=== PATIENT | male | born 1975 | race Caucasian/White ===

== ENCOUNTER 2020-01-06 17:19 | Emergency (ER) | payer OTHER | END 2020-01-06 17:50 | disposition left against medical advice (07) | LOC: ED 17:19 | DX: Z53.21 Procedure and treatment not carried out due to patient leaving prior to being seen by health care provider (principal) ==

== ENCOUNTER 2020-08-29 06:28 | Emergency (ER) | payer OTHER ==
[~2020-08-29] VITALS: Ht 182.9 cm; Wt 90.7 kg
[2020-08-29] MEDS ORDERED: MECLIZINE HCL25 MG PO (07:52)
--- NOTE | 2020-08-30 07:35 | EKG ---
[facility] [address] [facility] [place], [place] [address] Signed Normal sinus rhythm Normal ECG No previous ECGs available Confirmed by CLARISSA HINES MD ([id number]) on 08/30/2020 7:35:45 AM Electronically Signed By: CLARISSA HINES MD 08/30/20 0735 PATIENT NAME: RAIVLADIMIRMissael HOWARD Electrocardiogram DATE OF : 79 PHYSICIAN: CLARISSA HINES MD REPORT #: [id number] REPORT IS CONFIDENTIAL AND NOT TO BE RELEASED WITHOUT AUTHORIZATION
== END 2020-08-29 08:31 | disposition home or self-care (01) ==
LOC: ED 06:28
DX: H81.20 Vestibular neuronitis, unspecified ear (principal); E11.9 Type 2 diabetes mellitus without complications; F17.200 Nicotine dependence, unspecified, uncomplicated
CPT/HCPCS: 71045; 80053; 82140; 83735; 85025; 85610; 93005; 93010; 96374; 99284-25; J2405

== ENCOUNTER 2021-01-02 09:39 | Emergency (ER) | payer OTHER ==
[~2021-01-02] VITALS: Ht 182.9 cm; Wt 90.7 kg
[~2021-01-02 09:39] MED LIST: MECLIZINE HCL25 MG PO
[2021-01-02] MEDS ORDERED: ESSENTIA TABLE1 EACH PO (13:06)
== END 2021-01-02 13:32 | disposition home or self-care (01) ==
LOC: ED 09:39
DX: F10.20 Alcohol dependence, uncomplicated (principal); E11.65 Type 2 diabetes mellitus with hyperglycemia; E83.42 Hypomagnesemia; F17.200 Nicotine dependence, unspecified, uncomplicated; Z20.822 Contact with and (suspected) exposure to COVID-19
CPT/HCPCS: 80053; 83690; 83735; 85025; 85610; 96374; 96375; 99284-25; C9803; J2405; J3475; U0003

== ENCOUNTER 2021-05-25 11:32 | Emergency (ER) | payer OTHER ==
[~2021-05-25] VITALS: Ht 182.9 cm; Wt 91.0 kg
[~2021-05-25 11:32] MED LIST changes: +ESSENTIA TABLE1 EACH PO
[2021-05-25] MEDS ORDERED: VITAMIN D21250 MCG PO (11:45)
[2021-05-25] MEDS ORDERED: LISINOPRIL10 MG PO (11:46)
[2021-05-25] MEDS ORDERED: ABILIFY20 MG PO (11:46)
[2021-05-25] MEDS ORDERED: BASAGLAR K100 UNIT/1 SUB-Q (11:46)
[2021-05-25] MEDS ORDERED: ZOLOFT50 MG PO (11:46)
[2021-05-25] MEDS ORDERED: HYDROCODON-ACE1 EA11 PO (15:31)
[2021-05-25] MEDS ORDERED: ONDANSETRON ODT8 MG PO (15:31)
== END 2021-05-25 15:43 | disposition home or self-care (01) ==
LOC: ED 11:32
DX: K85.90 Acute pancreatitis without necrosis or infection, unspecified (principal); E11.9 Type 2 diabetes mellitus without complications; F17.200 Nicotine dependence, unspecified, uncomplicated; Z79.4 Long term (current) use of insulin; Z79.899 Other long term (current) 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
CPT/HCPCS: 74177; 80053; 81001; 83690; 85025; 99284-25; J2270; J2405; J7030

== ENCOUNTER 2021-10-09 09:13 | Emergency (ER) | payer OTHER ==
[~2021-10-09] VITALS: Ht 182.9 cm; Wt 91.0 kg
[~2021-10-09 09:13] MED LIST changes: +ABILIFY20 MG PO; +BASAGLAR K100 UNIT/1 SUB-Q; +HYDROCODON-ACE1 EA11 PO; +LISINOPRIL10 MG PO; +ONDANSETRON ODT8 MG PO; +VITAMIN D21250 MCG PO; +ZOLOFT50 MG PO
[2021-10-09] MEDS ORDERED: TRANSDERM-SCOP1 EACH TD (16:10)
== END 2021-10-09 16:37 | disposition home or self-care (01) ==
LOC: ED 09:13
DX: M54.12 Radiculopathy, cervical region (principal); R42 Dizziness and giddiness; E11.9 Type 2 diabetes mellitus without complications; F17.200 Nicotine dependence, unspecified, uncomplicated; Z79.899 Other long term (current) 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; Z79.4 Long term (current) use of insulin
CPT/HCPCS: 72040; 99284-25

== ENCOUNTER 2021-10-11 08:46 | Emergency (ER) | payer OTHER ==
[~2021-10-11] VITALS: Ht 182.9 cm; Wt 91.0 kg
[~2021-10-11 08:46] MED LIST changes: +TRANSDERM-SCOP1 EACH TD
--- OUTSIDE RECORDS SUMMARY | 2021-10-11 08:48 | XMS ---
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 RAI Security Riding Double Events No recent Security Events currently on file CRITERIA MET - [facility] - 2 Visits in 30 Days CARE PROVIDERS RICARDO [facility] Current PHONE: Unknown Matty has no Care Guidelines for this patient. E.Katherine VISIT COUNT (12 MO.) 4 [facility] TOTAL 4 NOTE: Visits indicate total known visits. ED/UCC VISIT TRACKING (12 MO.) 10/11/2021 08:46 [facility] [place] TYPE: Emergency COMPLAINT: - DIZZINESS 10/09/2021 09:14 [facility] [place] TYPE: Emergency COMPLAINT: - EQUILIBRIUM OFF, L NECK/SHOULDER PAIN 05/25/2021 11:33 [facility] [place] TYPE: Emergency COMPLAINT: - RT SIDE ABD PAIN DIAGNOSES: - Type 2 diabetes mellitus without complications - Acute pancreatitis without necrosis or infection, unspecified - Other traveling nurse (current) 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 - Unspecified abdominal pain - Nicotine dependence, unspecified, uncomplicated - supervisor paste mixing (current) use of insulin 01/02/2021 09:[address] [facility] [place] TYPE: Emergency COMPLAINT: - MEDICAL CLEARANCE DIAGNOSES: - Nicotine dependence, unspecified, uncomplicated - Hypomagnesemia - Alcohol dependence, uncomplicated - Type 2 diabetes mellitus with hyperglycemia INPATIENT VISIT TRACKING (12 MO.) No inpatient visits to display in this time frame [id number]
[2021-10-11] MEDS ORDERED: PREDNISONE20 MG PO (12:31)
[2021-10-11] MEDS ORDERED: MECLIZINE HCL25 MG PO (12:31)
== END 2021-10-11 14:28 | disposition home or self-care (01) ==
LOC: ED 08:46
DX: R42 Dizziness and giddiness (principal); M54.12 Radiculopathy, cervical region; E11.9 Type 2 diabetes mellitus without complications; F17.200 Nicotine dependence, unspecified, uncomplicated; Z79.899 Other long term (current) 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; Z79.4 Long term (current) use of insulin
CPT/HCPCS: 99283; A9270; J8540

== ENCOUNTER 2021-11-02 12:56 | Emergency (ER) | payer OTHER ==
[~2021-11-02] VITALS: Ht 182.9 cm; Wt 93.2 kg
[~2021-11-02 12:56] MED LIST changes: +ARIPIPRAZOLE10 MG PO; -LISINOPRIL10 MG PO; +METFORMIN HCL500 MG PO; +PREDNISONE20 MG PO; +REMERON15 MG PO; +TRANSDERM-SCOP1 EACH TOP; +VENTOLIN HFA18 GM INH; +VIAGRA50 MG PO; +ZESTRIL30 MG PO
--- OUTSIDE RECORDS SUMMARY | 2021-11-02 12:58 | XMS ---
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 RAI Security Electrifier Operator Events No recent Security Events currently on file CRITERIA MET - [facility] - 2 Visits in 30 Days CARE PROVIDERS ZACKERY SORTO Nurse Practitioner: 10/14/2021-Current PHONE: [phone] DALY SILVA [facility] Current PHONE: Unknown Matty has no Care Guidelines for this patient. EDean VISIT COUNT (12 MO.) [address] [place] [address] TOTAL 6 NOTE: Visits indicate total known visits. ED/UCC VISIT TRACKING (12 MO.) 11/02/2021 12:56 [facility] [place] TYPE: Emergency COMPLAINT: - CONSTIPATION 10/28/2021 15:52 [facility] [place] TYPE: Emergency COMPLAINT: - DIZZINESS 10/11/2021 08:46 [facility] [place] TYPE: Emergency COMPLAINT: - DIZZINESS DIAGNOSES: - Nicotine dependence, unspecified, uncomplicated - continuous churn buttermaker (current) use of insulin - Radiculopathy, cervical region - Dizziness and giddiness - Other terminologist (current) 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 - Type 2 diabetes mellitus without complications 10/09/2021 09:14 [facility] [place] TYPE: Emergency COMPLAINT: - EQUILIBRIUM OFF, L NECK/SHOULDER PAIN DIAGNOSES: - Dizziness and giddiness - Other terminologist (current) 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 - Cervicalgia - Radiculopathy, cervical region - Type 2 diabetes mellitus without complications - jail (current) use of insulin - Nicotine dependence, unspecified, uncomplicated 05/25/2021 11:33 [facility] [place] TYPE: Emergency COMPLAINT: - RT SIDE ABD PAIN DIAGNOSES: - Type 2 diabetes mellitus without complications - Acute pancreatitis without necrosis or infection, unspecified - Other usp (current) 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 - Unspecified abdominal pain - Nicotine dependence, unspecified, uncomplicated - jail (current) use of insulin 01/02/2021 09:40 [facility] [place] TYPE: Emergency COMPLAINT: - MEDICAL CLEARANCE DIAGNOSES: - Nicotine dependence, unspecified, uncomplicated - Hypomagnesemia - Alcohol dependence, uncomplicated - Type 2 diabetes mellitus with hyperglycemia INPATIENT VISIT TRACKING (12 MO.) 10/28/2021 15:[address] [facility] [place] TYPE: Observation COMPLAINT: - VERTIGO, HEADACHE, NUMBNESS DIAGNOSES: - Thrombocytopenia, unspecified - continuous churn buttermaker (current) use of insulin - Headache, unspecified - Contact with and (suspected) exposure to COVID-19 - Nicotine dependence, cigarettes, uncomplicated - Major depressive disorder, single episode, unspecified - Anesthesia of skin - Dizziness and giddiness - Unspecified cirrhosis of liver - Family history of ischemic heart disease and other diseases of the circulatory system - Personal history of other (healed) physical injury and trauma - Type 2 diabetes mellitus without complications - Essential (primary) hypertension [id number]
[2021-11-02] MEDS ORDERED: CYCLOBENZAPRINE10 MG PO (13:34)
[2021-11-02] MEDS ORDERED: CONSTULOSE10 GM/15 M PO (17:05)
[2021-11-02] MEDS ORDERED: ATIVAN0.5 MG PO (17:05)
[2021-11-02] MEDS ORDERED: GOLYTELY SOLU4000 ML PO (17:05)
== END 2021-11-02 17:32 | disposition home or self-care (01) ==
LOC: ED 12:56
DX: K59.00 Constipation, unspecified (principal); E11.9 Type 2 diabetes mellitus without complications; F17.200 Nicotine dependence, unspecified, uncomplicated; Z79.899 Other long term (current) 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; Z79.4 Long term (current) use of insulin; Z79.84 Long term (current) use of oral hypoglycemic drugs
CPT/HCPCS: 36415; 74177; 80053; 81001; 83605; 83690; 85025; 96375; 99284-25; J1170; J1815; J1885; J2270; J2405; J3360; J7030

== ENCOUNTER 2022-01-11 13:58 | Emergency (ER) | payer OTHER ==
[~2022-01-11] VITALS: Ht 182.9 cm; Wt 101.0 kg
[~2022-01-11 13:58] MED LIST changes: +ATIVAN0.5 MG PO; +CONSTULOSE10 GM/15 M PO; +CYCLOBENZAPRINE10 MG PO; +GOLYTELY SOLU4000 ML PO
--- OUTSIDE RECORDS SUMMARY | 2022-01-11 14:00 | XMS ---
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 RAI Security Round Boner Events No recent Security Events currently on file CRITERIA MET - [facility] CARE PROVIDERS ZACKERY SORTO Nurse Practitioner: 10/14/2021-Current PHONE: [phone] DALY SILVA [facility] Current PHONE: Unknown Matty has no Care Guidelines for this patient. Sina VISIT COUNT (12 MO.) Colleen Valenzuela TOTAL 6 NOTE: Visits indicate total known visits. ED/UCC VISIT TRACKING (12 MO.) 01/11/2022 13:58 [facility] [place] TYPE: Emergency COMPLAINT: - RT SIDE PAIN, HALLUCINATIONS 11/02/2021 12:56 [facility] [place] TYPE: Emergency COMPLAINT: - CONSTIPATION DIAGNOSES: - half-way (current) use of insulin - Type 2 diabetes mellitus without complications - Constipation, unspecified - Nicotine dependence, unspecified, uncomplicated - Unspecified abdominal pain - Other group home (current) 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 - half-way (current) use of oral hypoglycemic drugs 10/28/2021 15:52 [facility] [place] TYPE: Emergency COMPLAINT: - DIZZINESS 10/11/2021 08:46 [facility] [place] TYPE: Emergency COMPLAINT: - DIZZINESS DIAGNOSES: - Nicotine dependence, unspecified, uncomplicated - half-way (current) use of insulin - Radiculopathy, cervical region - Dizziness and giddiness - Other image scientist (current) 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 - Type 2 diabetes mellitus without complications 10/09/2021 09:14 [facility] [place] TYPE: Emergency COMPLAINT: - EQUILIBRIUM OFF, L NECK/SHOULDER PAIN DIAGNOSES: - Dizziness and giddiness - Other group home (current) 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 - Cervicalgia - Radiculopathy, cervical region - Type 2 diabetes mellitus without complications - half-way (current) use of insulin - Nicotine dependence, unspecified, uncomplicated 05/25/2021 11:33 [facility] [place] TYPE: Emergency COMPLAINT: - RT SIDE ABD PAIN DIAGNOSES: - Type 2 diabetes mellitus without complications - Acute pancreatitis without necrosis or infection, unspecified - Other image scientist (current) 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 - Unspecified abdominal pain - Nicotine dependence, unspecified, uncomplicated - half-way (current) use of insulin INPATIENT VISIT TRACKING (12 MO.) 10/28/2021 15:[address] [facility] [place] TYPE: Observation COMPLAINT: - VERTIGO, HEADACHE, NUMBNESS DIAGNOSES: - Thrombocytopenia, unspecified - half-way (current) use of insulin - Headache, unspecified [...] mellitus without complications - Essential (primary) hypertension [id number]
== END 2022-01-11 16:33 | disposition home or self-care (01) ==
LOC: ED 13:58
DX: K76.9 Liver disease, unspecified (principal); E11.9 Type 2 diabetes mellitus without complications; F17.200 Nicotine dependence, unspecified, uncomplicated; Z79.899 Other long term (current) 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; Z79.4 Long term (current) use of insulin
CPT/HCPCS: 36415; 80053; 81001; 82140; 85025; 85610; 85730; 99284

== ENCOUNTER 2022-01-27 04:13 | Emergency (ER) | payer OTHER ==
[~2022-01-27] VITALS: Ht 182.9 cm; Wt 90.7 kg
[~2022-01-27 04:13] MED LIST changes: +BUPRENORPHINE-1 EACH SL; +INSULIN AS100 UNIT/3 SUB-Q; +INSULIN GL100 UNIT/2 SUB-Q; +NICOTINE1 EAC2 TD; +OMEPRAZOLE20 MG PO; +TAMSULOSIN HCL0.4 MG PO; +XIFAXAN550 MG PO
--- OUTSIDE RECORDS SUMMARY | 2022-01-27 04:16 | XMS ---
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 RAI Security Flower Machine Operator Events No recent Security Events currently on file CRITERIA MET - [facility] - 2 Visits in 30 Days - [facility] - 6 ED Visits in 6 Months CARE PROVIDERS ZACKERY SORTO Nurse Practitioner: 10/14/2021-Current PHONE: [phone] DALY SILVA [facility] Current PHONE: Unknown Matty has no Care Guidelines for this patient. EDean VISIT COUNT (12 MO.) [address] [place] [address] TOTAL 8 NOTE: Visits indicate total known visits. ED/UCC VISIT TRACKING (12 MO.) 01/27/2022 04:14 [facility] [place] TYPE: Emergency COMPLAINT: - VOMITING BLOOD 01/20/2022 09:23 [facility] [place] TYPE: Emergency COMPLAINT: - WEAK, VOMITING, HALLUCINATIONS, CONFUSION 01/11/2022 13:58 [facility] [place] TYPE: Emergency COMPLAINT: - RT SIDE PAIN, HALLUCINATIONS DIAGNOSES: - Type 2 diabetes mellitus without complications - Liver disease, unspecified - Altered mental status, unspecified - Other ch[facility] (current) 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 - [facility] (current) use of insulin - Nicotine dependence, unspecified, uncomplicated 11/02/2021 12:56 [facility] [place] TYPE: Emergency COMPLAINT: - CONSTIPATION DIAGNOSES: - ferry terminal agent (current) use of insulin - Type 2 diabetes mellitus without complications - Constipation, unspecified - Nicotine dependence, unspecified, uncomplicated - Unspecified abdominal pain - Other chcf (current) 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 - ferry terminal agent (current) use of oral hypoglycemic drugs 10/28/2021 15:52 [facility] [place] TYPE: Emergency COMPLAINT: - DIZZINESS 10/11/2021 08:46 [facility] [place] TYPE: Emergency COMPLAINT: - DIZZINESS DIAGNOSES: - Nicotine dependence, unspecified, uncomplicated - [facility] (current) use of insulin - Radiculopathy, cervical region - Dizziness and giddiness - Other terminal operator (current) 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 - Type 2 diabetes mellitus without complications 10/09/2021 09:14 [facility] [place] TYPE: Emergency COMPLAINT: - EQUILIBRIUM OFF, L NECK/SHOULDER PAIN DIAGNOSES: - Dizziness and giddiness - Other terminal operator (current) 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 - Cervicalgia - Radiculopathy, cervical region - Type 2 diabetes mellitus without complications - ferry terminal agent (current) use of insulin - Nicotine dependence, unspecified, uncomplicated 05/25/2021 11:33 [facility] [place] TYPE: Emergency COMPLAINT: - RT SIDE ABD PAIN DIAGNOSES: - Type 2 diabetes mellitus without complications - Acute pancreatitis without necrosis or infection, unspecified - Other chcf (current) 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 - Unspecified abdominal pain - Nicotine dependence, unspecified, uncomplicated - ferry terminal agent (current) use of insulin INPATIENT VISIT TRACKING (12 MO.) 01/20/2022 09:24 [facility] [place] TYPE: Observation COMPLAINT: - HEPATIC ENCEPHALOPATHY DIAGNOSES: - Nicotine dependence, cigarettes, uncomplicated - Alcoholic hepatic failure without coma - Type 2 diabetes mellitus without complications - Contact with and (suspected) exposure to COVID-19 - [facility] (current) use of insulin - Essential (primary) hypertension - Other pancytopenia - Unspecified mood [affective] disorder - Hepatic failure, unspecified without coma 10/28/2021 15:53 [facility] [place] TYPE: Observation COMPLAINT: - VERTIGO, HEADACHE, NUMBNESS DIAGNOSES: - Thrombocytopenia, unspecified - [facility] (current) use of insulin - Headache, unspecified [...] mellitus without complications - Essential (primary) hypertension [id number]
[2022-01-27] MEDS ORDERED: ONDANSETRON ODT8 MG PO (06:13)
== END 2022-01-27 06:37 | disposition home or self-care (01) ==
LOC: ED 04:13
DX: K29.01 Acute gastritis with bleeding (principal); K70.30 Alcoholic cirrhosis of liver without ascites; I85.00 Esophageal varices without bleeding; E11.9 Type 2 diabetes mellitus without complications; Z79.899 Other long term (current) 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; Z20.822 Contact with and (suspected) exposure to COVID-19
CPT/HCPCS: 36415; 71045; 80053; 81001; 82140; 83690; 84484; 85025; 85060; 85610; 85730; 87502; 96374; 96375; 99284-25; A9270; C9113; C9803; J2405; U0003

== ENCOUNTER 2022-03-16 06:40 | Emergency (ER) | payer OTHER ==
[~2022-03-16] VITALS: Ht 182.9 cm; Wt 94.0 kg
--- OUTSIDE RECORDS SUMMARY | 2022-03-16 06:42 | XMS ---
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 RAI Security Office Assistant Receptionist Events No recent Security Events currently on file CRITERIA MET - [facility] ZACKERY SORTO Nurse Practitioner: 10/14/2021-Current PHONE: [phone] DALY SILVA [facility] Current PHONE: Unknown Matty has no Care Guidelines for this patient. Sina VISIT COUNT (12 MO.) 9 [facility] TOTAL 9 NOTE: Visits indicate total known visits. ED/UCC VISIT TRACKING (12 MO.) 03/16/2022 06:40 [facility] [place] TYPE: Emergency COMPLAINT: - VOMITING 01/27/2022 04:14 [facility] [place] TYPE: Emergency COMPLAINT: - VOMITING BLOOD DIAGNOSES: - Esophageal varices without bleeding - Type 2 diabetes mellitus without complications - Secondary esophageal varices without bleeding - Alcoholic cirrhosis of liver without ascites - Contact with and (suspected) exposure to COVID-19 - Nicotine dependence, unspecified, uncomplicated - Hematemesis - jail (current) use of insulin - Other fci (current) 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 - Acute gastritis with bleeding 01/20/2022 09:23 [facility] [place] TYPE: Emergency COMPLAINT: - WEAK, VOMITING, HALLUCINATIONS, CONFUSION 01/11/2022 13:58 [facility] [place] TYPE: Emergency COMPLAINT: - RT SIDE PAIN, HALLUCINATIONS DIAGNOSES: - terminal clerk (current) use of insulin - Altered mental status, unspecified - Type 2 diabetes mellitus without complications - Nicotine dependence, unspecified, uncomplicated - Other terminal clerk (current) 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 - Liver disease, unspecified 11/02/2021 12:56 [facility] [place] TYPE: Emergency COMPLAINT: - CONSTIPATION DIAGNOSES: - terminal clerk (current) use of oral hypoglycemic drugs - Unspecified abdominal pain - Constipation, unspecified - terminal clerk (current) use of insulin - Other fci (current) 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 - Nicotine dependence, unspecified, uncomplicated - Type 2 diabetes mellitus without complications 10/28/2021 15:52 [facility] [place] TYPE: Emergency COMPLAINT: - DIZZINESS 10/11/2021 08:46 [facility] [place] TYPE: Emergency COMPLAINT: - DIZZINESS DIAGNOSES: - Other terminal clerk (current) 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 - Radiculopathy, cervical region - Nicotine dependence, unspecified, uncomplicated - Type 2 diabetes mellitus without complications - Dizziness and giddiness - jail (current) use of insulin 10/09/2021 09:14 [facility]car [place] [place] TYPE: Emergency COMPLAINT: - EQUILIBRIUM OFF, L NECK/SHOULDER PAIN DIAGNOSES: - Nicotine dependence, unspecified, uncomplicated - Type 2 diabetes mellitus without complications - Cervicalgia - Dizziness and giddiness - jail (current) use of insulin - Radiculopathy, cervical region - Other fci (current) 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 05/25/2021 11:33 [facility] [place] TYPE: Emergency COMPLAINT: - RT SIDE ABD PAIN DIAGNOSES: - Nicotine dependence, unspecified, uncomplicated - Other fci (current) 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 - Type 2 diabetes mellitus without complications - jail (current) use of insulin - Unspecified abdominal pain - Acute pancreatitis without necrosis or infection, unspecified INPATIENT VISIT TRACKING (12 MO.) 01/20/2022 09:24 [facility] [place] TYPE: Observation COMPLAINT: - HEPATIC ENCEPHALOPATHY DIAGNOSES: - Hepatic failure, unspecified without coma - Other pancytopenia - jail (current) use of insulin - Type 2 diabetes mellitus without complications - Nicotine dependence, cigarettes, uncomplicated - Unspecified mood [affective] disorder - Essential (primary) hypertension - Contact with and (suspected) exposure to COVID-19 - Alcoholic hepatic failure without coma 10/28/2021 15:53 [facility] [place] TYPE: Observation COMPLAINT: - VERTIGO, HEADACHE, NUMBNESS DIAGNOSES: - Unspecified cirrhosis of liver - Anesthesia of skin - Nicotine dependence, cigarettes, uncomplicated - Type 2 diabetes mellitus without complications - Headache, unspecified - Family history of ischemic heart disease and other diseases of the circulatory system - Thrombocytopenia, unspecified - Dizziness and giddiness - Major depressive disorder, single episode, unspecified - Essential (primary) hypertension - Contact with and (suspected) exposure to COVID-19 - Personal history of other (healed) physical injury and trauma - jail (current) use of insulin [id number]
== END 2022-03-16 12:25 | disposition home or self-care (01) ==
LOC: ED 06:40
DX: K29.70 Gastritis, unspecified, without bleeding (principal); U07.1 COVID-19; E11.9 Type 2 diabetes mellitus without complications; F17.200 Nicotine dependence, unspecified, uncomplicated; Z79.899 Other long term (current) 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; Z79.4 Long term (current) use of insulin
CPT/HCPCS: 36415; 74177; 80053; 81001; 82140; 83690; 85025; 85060; 85610; 87502; 96361; 96375; 96376; 99284-25; C9803; J1170; J2060; J2405; J7030; Q9967; U0003

== ENCOUNTER 2022-08-14 13:21 | Emergency (ER) | payer OTHER ==
[~2022-08-14] VITALS: Ht 182.9 cm; Wt 94.0 kg
--- OUTSIDE RECORDS SUMMARY | 2022-08-14 13:24 | XMS ---
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 RAI Security Cryptologic Technician Technical Events No recent Security Events currently on file CRITERIA MET - [facility] CARE PROVIDERS ZACKERY SORTO Nurse Practitioner: Family 10/14/2021-Current PHONE: [phone] DALY SILVA [facility] Current PHONE: Unknown Tamica Westbrook Sample Driller/Customer Development Representative 06/26/2022-Current PHONE: [phone] Matty has no Care Guidelines for this patient. E.D. VISIT COUNT (12 MO.) 9 [facility] Valenzuela TOTAL 9 NOTE: Visits indicate total known visits. ED/UCC VISIT TRACKING (12 MO.) 08/14/2022 13:21 [facility] [place] TYPE: Emergency COMPLAINT: - VOMITING, ABD PAIN 03/16/2022 06:40 [facility] [place] TYPE: Emergency COMPLAINT: - VOMITING DIAGNOSES: - Right upper quadrant pain - COVID-19 - Type 2 diabetes mellitus without complications - intermediate card tender (current) use of insulin - Nicotine dependence, unspecified, uncomplicated - Gastritis, unspecified, without bleeding - Other mcfp (current) 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 01/27/2022 04:14 [facility] [place] TYPE: Emergency COMPLAINT: - VOMITING BLOOD DIAGNOSES: - Esophageal varices without bleeding - Type 2 diabetes mellitus without complications - Secondary esophageal varices without bleeding - Alcoholic cirrhosis of liver without ascites - Contact with and (suspected) exposure to COVID-19 - Nicotine dependence, unspecified, uncomplicated - Hematemesis - penitentiary (current) use of insulin - Other intermediate accountant (current) 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 - Acute gastritis with bleeding 01/20/2022 09:23 [facility] [place] TYPE: Emergency COMPLAINT: - WEAK, VOMITING, HALLUCINATIONS, CONFUSION 01/11/2022 13:58 [facility] [place] TYPE: Emergency COMPLAINT: - RT SIDE PAIN, HALLUCINATIONS DIAGNOSES: - intermediate card tender (current) use of insulin - Altered mental status, unspecified - Type 2 diabetes mellitus without complications - Nicotine dependence, unspecified, uncomplicated - Other mcfp (current) 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 - Liver disease, unspecified 11/02/2021 12:56 [facility] [place] TYPE: Emergency COMPLAINT: - CONSTIPATION DIAGNOSES: - penitentiary (current) use of oral hypoglycemic drugs - Unspecified abdominal pain - Constipation, unspecified - penitentiary (current) use of insulin - Other intermediate accountant (current) 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 - Nicotine dependence, unspecified, uncomplicated - Type 2 diabetes mellitus without complications 10/28/2021 15:52 [facility] [place] TYPE: Emergency COMPLAINT: - DIZZINESS 10/11/2021 08:46 [facility] [place] TYPE: Emergency COMPLAINT: - DIZZINESS DIAGNOSES: - Other intermediate accountant (current) 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 - Radiculopathy, cervical region - Nicotine dependence, unspecified, uncomplicated - Type 2 diabetes mellitus without complications - Dizziness and giddiness - intermediate card tender (current) use of insulin 10/09/2021 09:14 [facility] [place] TYPE: Emergency COMPLAINT: - EQUILIBRIUM OFF, L NECK/SHOULDER PAIN DIAGNOSES: - Nicotine dependence, unspecified, uncomplicated - Type 2 diabetes mellitus without complications - Cervicalgia - Dizziness and giddiness - penitentiary (current) use of insulin - Radiculopathy, cervical region - Other intermediate accountant (current) 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 INPATIENT VISIT TRACKING (12 MO.) 01/20/2022 09:24 [facility] [place] TYPE: Observation COMPLAINT: - HEPATIC ENCEPHALOPATHY DIAGNOSES: - Hepatic failure, unspecified without coma - Other pancytopenia - intermediate card tender (current) use of insulin - Type 2 [...] other (healed) physical injury and trauma - penitentiary (current) use of insulin [id number]
[2022-08-14] MEDS ORDERED: PROMETHAZINE HC25 M1 PO (17:27)
== END 2022-08-14 17:39 | disposition home or self-care (01) ==
LOC: ED 13:21
DX: E11.43 Type 2 diabetes mellitus with diabetic autonomic (poly)neuropathy (principal); K31.84 Gastroparesis; K74.60 Unspecified cirrhosis of liver; F17.200 Nicotine dependence, unspecified, uncomplicated; Z79.899 Other long term (current) 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; Z79.4 Long term (current) use of insulin
CPT/HCPCS: 36415; 80053; 81003; 82140; 83690; 83735; 85025; 85060; 85610; 96361; 96374; 96375; 99284-25; J1170; J1200; J1790; J2405; J2550; J7030

== ENCOUNTER 2023-01-22 09:04 | Emergency (ER) | payer OTHER ==
[~2023-01-22] VITALS: Ht 182.9 cm; Wt 90.8 kg
--- OUTSIDE RECORDS SUMMARY | ~2023-01-22 | XMS | Continuity of Care Document ---
Demographics + + + | Address | [address] | | | [place] [address] | + + + | Preferred Language | Unknown | + + + | Marital Status | | + + + | Gnosticism Affiliation | Unknown | + + + | Race | White | + + + | Ethnic Group | Not or | + + + Author + + + | Author | [facility] | + + + | Organization | [facility] | + + + | Address | [address] | | | [place] [address] | + + + | Phone | | + + + Care Team Providers + + + + | Care Pyridine Operator Name | Role | Phone | + [...] Status No information. Immunizations No information. Medications + + + + | date | description | facility | + + + + | 2022-01-23 00:00 | Buprenorphine HCl/Naloxone | [facility] | | | HCl | | + + + + | 2022-01-27 00:00 | Buprenorphine HCl/Naloxone | [facility] | | | HCl | | + + + + | 2022-03-16 00:00 | Buprenorphine HCl/Naloxone | [facility] | | | HCl | | + + + + | 2022-08-14 00:00 | Buprenorphine HCl/Naloxone | [facility] | | | HCl | | + + + + | 2022-12-16 00:00 | Buprenorphine HCl/Naloxone | [facility] | | | HCl | | + + + + | 2022-12-19 00:00 | Buprenorphine HCl/Naloxone | [facility] | | | HCl | | + + + + | 2022-01-23 00:00 | Insulin Aspart | [facility] | + + + + | 2022-01-27 00:00 | Insulin Aspart | [facility] | + + + + | 2022-03-16 00:00 | Insulin Aspart | [facility] | + + + + | 2022-08-14 00:00 | Insulin Aspart | [facility] | + + + + | 2022-12-16 00:00 | Insulin Aspart | [facility] | + + + + | 2022-12-19 00:00 | Insulin Aspart | [facility] | + + + + | 2022-01-20 00:00 | Insulin | [facility] | | | Hum. Johnnyrecdrewlog | | + + + + | 2022-01-21 00:00 | NICOTINE | [facility] | + + + + | 2022-01-21 00:00 | NICOTINE | [facility] | + + + + | 2022-01-21 00:00 | NICOTINE | [facility] | + + + + | 2022-01-23 00:00 | OMEPRAZOLE | [facility] | + + + + | 2022-01-27 00:00 | OMEPRAZOLE | [facility] | + + + + | 2022-03-16 00:00 | OMEPRAZOLE | [facility] | + + + + | 2022-08-14 00:00 | OMEPRAZOLE | [facility] | + + + + | 2022-12-16 00:00 | OMEPRAZOLE | [facility] | + + + + | 2022-12-19 00:00 | OMEPRAZOLE | [facility] | + + + + | 2022-01-20 00:00 | SERTRALINE HCL | [facility] | + + + + | 2022-01-23 00:00 | SERTRALINE HCL | [facility] | + + + + | 2022-01-27 00:00 | SERTRALINE HCL | [facility] | + + + + | 2022-03-16 00:00 | SERTRALINE HCL | [facility] | + + + + | 2022-08-14 00:00 | SERTRALINE HCL | [facility] | + + + + | 2022-12-16 00:00 | SERTRALINE HCL | [facility] | + + + + | 2022-12-19 00:00 | SERTRALINE HCL | [facility] | + + + + | 2022-01-20 00:00 | SILDENAFIL CITRATE | [facility] | + + + + | 2022-01-23 00:00 | SILDENAFIL CITRATE | [facility] | + + + + | 2022-01-27 00:00 | SILDENAFIL CITRATE | [facility] | + + + + | 2022-03-16 00:00 | SILDENAFIL CITRATE | [facility] | + + + + | 2022-08-14 00:00 | SILDENAFIL CITRATE | [facility] | + + + + | 2022-12-16 00:00 | SILDENAFIL CITRATE | [facility] | + + + + | 2022-12-19 00:00 | SILDENAFIL CITRATE | [facility] | + + + + | 2022-01-20 00:00 | LISINOPRIL | [facility] | + + + + | 2022-01-23 00:00 | LISINOPRIL | [facility] | + + + + | 2022-01-27 00:00 | LISINOPRIL | [facility] | + + + + | 2022-03-16 00:00 | LISINOPRIL | [facility] | + + + + | 2022-08-14 00:00 | LISINOPRIL | [facility] | + + + + | 2022-12-16 00:00 | LISINOPRIL | [facility] | + + + + | 2022-12-19 00:00 | LISINOPRIL | [facility] | + + + + | 2022-01-23 00:00 | Insulin Glargine-Yfgn | [facility] | + + + + | 2022-01-27 00:00 | Insulin Glargine-Yfgn | [facility] | + + + + | 2022-03-16 00:00 | Insulin Glargine-Yfgn | [facility] | + + + + | 2022-08-14 00:00 | Insulin Glargine-Yfgn | [facility] | + + + + | 2022-12-16 00:00 | Insulin Glargine-Yfgn | [facility] | + + + + | 2022-12-19 00:00 | Insulin Glargine-Yfgn | [facility] | + + + + | 2022-01-27 00:00 | ONDANSETRON | [facility] | + + + + | 2022-01-27 00:00 | ONDANSETRON | [facility] | + + + + | 2022-01-27 00:00 | ONDANSETRON | [facility] | + + + + | 2022-01-20 00:00 | ARIPIPRAZOLE | [facility] | + + + + | 2022-01-23 00:00 | ARIPIPRAZOLE | [facility] | + + + + | 2022-01-27 00:00 | ARIPIPRAZOLE | [facility] | + + + + | 2022-03-16 00:00 | ARIPIPRAZOLE | [facility] | + + + + | 2022-08-14 00:00 | ARIPIPRAZOLE | [facility] | + + + + | 2022-12-16 00:00 | ARIPIPRAZOLE | [facility] | + + + + | 2022-12-19 00:00 | ARIPIPRAZOLE | [facility] | + + + + | 2021-11-02 00:00 | LACTULOSE | [facility] | + + + + | 2021-11-02 00:00 | LACTULOSE | [facility] | + + + + | 2021-11-02 00:00 | LACTULOSE | [facility] | + + + + | 2021-11-02 00:00 | LACTULOSE | [facility] | + + + + | 2022-01-21 00:00 | LACTULOSE | [facility] | + + + + | 2022-01-21 00:00 | LACTULOSE | [facility] | + + + + | 2022-01-21 00:00 | LACTULOSE | [facility] | + + + + | 2022-01-21 00:00 | LACTULOSE | [facility] | + + + + | 2022-01-21 00:00 | RIFAXIMIN | [facility] | + + + + | 2022-01-21 00:00 | RIFAXIMIN | [facility] | + + + + | 2022-01-21 00:00 | RIFAXIMIN | [facility] | + + + + | 2022-01-21 00:00 | RIFAXIMIN | [facility] | + + + + | 2022-01-20 00:00 | ALBUTEROL SULFATE | [facility] | + + + + | 2022-01-23 00:00 | ALBUTEROL SULFATE | [facility] | + + + + | 2022-01-27 00:00 | ALBUTEROL SULFATE | [facility] | + + + + | 2022-03-16 00:00 | ALBUTEROL SULFATE | [facility] | + + + + | 2022-08-14 00:00 | ALBUTEROL SULFATE | [facility] | + + + + | 2022-12-16 00:00 | ALBUTEROL SULFATE | [facility] | + + + + | 2022-12-19 00:00 | ALBUTEROL SULFATE | [facility] | + + + + | 2021-11-02 00:00 | PEG 3350/NA | [facility] | | | SULF,BICARB,CL/KCL | | + + + + | 2022-08-14 00:00 | PROMETHAZINE HCL | [facility] | + + + + | 2022-08-14 00:00 | PROMETHAZINE HCL | [facility] | + + + + | 2022-08-14 00:00 | PROMETHAZINE HCL | [facility] | + + + + | 2020-08-29 00:00 | MECLIZINE HCL | [facility] | + + + + | 2020-08-29 00:00 | MECLIZINE HCL | [facility] | + + + + | 2020-08-29 00:00 | MECLIZINE HCL | [facility] | + + + + | 2020-08-29 00:00 | MECLIZINE HCL | [facility] | + + + + | 2021-10-11 00:00 | MECLIZINE HCL | [facility] | + + + + Problems + + + + | date | description | facility | + + + + | 2020-01-06 00:00 | Patient left without being | [facility] | | | seen | | + + + + | 2020-01-06 00:00 | Patient left without being | [facility] | | | seen | | + + + + | 2020-01-06 00:00 | Patient left without being | [facility] | | | seen | | + + + + | 2020-01-06 00:00 | Patient left without being | [facility] | | | seen | | + + + + | 2020-08-29 00:00 | Vestibular neuronitis | [facility] | + + + + | 2020-08-29 00:00 | Vestibular neuronitis | [facility] | + + + + | 2020-08-29 00:00 | Vestibular neuronitis | [facility] | + + + + | 2020-08-29 00:00 | Vestibular neuronitis | [facility] | + + + + | 2021-01-02 00:00 | Hyperglycemia due to | [facility] | | | diabetes mellitus | | + + + + | 2021-01-02 00:00 | Hyperglycemia due to | [facility] | | | diabetes mellitus | | + + + + | 2021-01-02 00:00 | Hyperglycemia due to | [facility] | | | diabetes mellitus | | + + + + | 2021-01-02 00:00 | Hyperglycemia due to | [facility] | | | diabetes mellitus | | + + + + | 2021-01-02 00:00 | Hypomagnesemia | [facility] | + + + + | 2021-01-02 00:00 | Hypomagnesemia | [facility] | + + + + | 2021-01-02 00:00 | Hypomagnesemia | [facility] | + + + + | 2021-01-02 00:00 | Hypomagnesemia | [facility] | + + + + | 2021-01-02 00:00 | Alcoholism | [facility] | + + + + | 2021-01-02 00:00 | Alcoholism | [facility] | + + + + | 2021-01-02 00:00 | Alcoholism | [facility] | + + + + | 2021-01-02 00:00 | Alcoholism | [facility] | + + + + | 2021-05-25 00:00 | Acute pancreatitis | [facility] | + + + + | 2021-05-25 00:00 | Acute pancreatitis | [facility] | + + + + | 2021-05-25 00:00 | Acute pancreatitis | [facility] | + + + + | 2021-05-25 00:00 | Acute pancreatitis | [facility] | + + + + | 2021-10-09 00:00 | Cervical radiculopathy | [facility] | + + + + | 2021-10-09 00:00 | Cervical radiculopathy | [facility] | + + + + | 2021-10-09 00:00 | Cervical radiculopathy | [facility] | + + + + | 2021-10-09 00:00 | Cervical radiculopathy | [facility] | + + + + | 2021-10-09 00:00 | Vertigo | [facility] | + + + + | 2021-10-09 00:00 | Vertigo | [facility] | + + + + | 2021-10-09 00:00 | Vertigo | [facility] | + + + + | 2021-10-09 00:00 | Vertigo | [facility] | + + + + | 2021-10-11 00:00 | Episodic recurrent vertigo | [facility] | | | | | + + + + | 2021-10-11 00:00 | Episodic recurrent vertigo | [facility] | | | | | + + + + | 2021-10-11 00:00 | Episodic recurrent vertigo | [facility] | | | | | + + + + | 2021-10-11 00:00 | Episodic recurrent vertigo | [facility] | | | | | + + + + | 2021-10-28 00:00 | Headache | [facility] | + + + + | 2021-10-28 00:00 | Headache | [facility] | + + + + | 2021-10-28 00:00 | Headache | [facility] | + + + + | 2021-10-28 00:00 | Headache | [facility] | + + + + | 2021-10-29 00:00 | Thrombocytopenia | [facility] | + + + + | 2021-10-29 00:00 | Thrombocytopenia | [facility] | + + + + | 2021-10-29 00:00 | Thrombocytopenia | [facility] | + + + + | 2021-10-29 00:00 | Thrombocytopenia | [facility] | + + + + | 2021-10-29 00:00 | Paresthesia | [facility] | + + + + | 2021-10-29 00:00 | Paresthesia | [facility] | + + + + | 2021-10-29 00:00 | Paresthesia | [facility] | + + + + | 2021-10-29 00:00 | Paresthesia | [facility] | + + + + | 2021-10-29 00:00 | Dizziness | [facility] | + + + + | 2021-10-29 00:00 | Dizziness | [facility] | + + + + | 2021-10-29 00:00 | Dizziness | [facility] | + + + + | 2021-10-29 00:00 | Dizziness | [facility] | + + + + | 2021-10-29 00:00 | Hyperglycemia | [facility] | + + + + | 2021-10-29 00:00 | Hyperglycemia | [facility] | + + + + | 2021-10-29 00:00 | Hyperglycemia | [facility] | + + + + | 2021-10-29 00:00 | Hyperglycemia | [facility] | + + + + | 2021-11-02 00:00 | Constipation | [facility] | + + + + | 2021-11-02 00:00 | Constipation | [facility] | + + + + | 2021-11-02 00:00 | Constipation | [facility] | + + + + | 2021-11-02 00:00 | Constipation | [facility] | + + + + | 2022-01-11 00:00 | Chronic liver disease | [facility] | + + + + | 2022-01-11 00:00 | Chronic liver disease | [facility] | + + + + | 2022-01-11 00:00 | Chronic liver disease | [facility] | + + + + | 2022-01-11 00:00 | Chronic liver disease | [facility] | + + + + | 2022-01-11 00:00 | Somnolence | [facility] | + + + + | 2022-01-11 00:00 | Somnolence | [facility] | + + + + | 2022-01-11 00:00 | Somnolence | [facility] | + + + + | 2022-01-11 00:00 | Somnolence | [facility] | + + + + | 2022-01-20 00:00 | Hepatic encephalopathy | [facility] | + + + + | 2022-01-20 00:00 | Hepatic encephalopathy | [facility] | + + + + | 2022-01-20 00:00 | Hepatic encephalopathy | [facility] | + + + + | 2022-01-20 00:00 | Hepatic encephalopathy | [facility] | + + + + | 2022-01-27 00:00 | Acute gastritis | [facility] | + + + + | 2022-01-27 00:00 | Acute gastritis | [facility] | + + + + | 2022-01-27 00:00 | Acute gastritis | [facility] | + + + + | 2022-01-27 00:00 | Acute gastritis | [facility] | + + + + | 2022-01-27 00:00 | Chronic liver disease and | [facility] | | | cirrhosis | | + + + + | 2022-01-27 00:00 | Chronic liver disease and | [facility] | | | cirrhosis | | + + + + | 2022-01-27 00:00 | Chronic liver disease and | [facility] | | | cirrhosis | | + + + + | 2022-01-27 00:00 | Chronic liver disease and | [facility] | | | cirrhosis | | + + + + | 2022-01-27 00:00 | Epistaxis | [facility] | + + + + | 2022-01-27 00:00 | Epistaxis | [facility] | + + + + | 2022-01-27 00:00 | Epistaxis | [facility] | + + + + | 2022-01-27 00:00 | Epistaxis | [facility] | + + + + | 2022-03-16 00:00 | Gastritis | [facility] | + + + + | 2022-03-16 00:00 | Gastritis | [facility] | + + + + | 2022-03-16 00:00 | Gastritis | [facility] | + + + + | 2022-03-16 00:00 | Infection due to severe | [facility] | | | acute respiratory syndrome | | | | coronavirus 2 (SARS-CoV-2) | | + + + + | 2022-03-16 00:00 | Infection due to severe | [facility] | | | acute respiratory syndrome | | | | coronavirus 2 (SARS-CoV-2) | | + + + + | 2022-03-16 00:00 | Infection due to severe | [facility] | | | acute respiratory syndrome | | | | coronavirus 2 (SARS-CoV-2) | | + + + + | 2022-08-14 00:00 | Gastroparesis | [facility] | + + + + | 2022-08-14 00:00 | Gastroparesis | [facility] | + + + + | 2022-08-14 00:00 | Gastroparesis | [facility] | + + + + | 2022-08-14 00:00 | Hepatic cirrhosis | [facility] | + + + + | 2022-08-14 00:00 | Hepatic cirrhosis | [facility] | + + + + | 2022-08-14 00:00 | Hepatic cirrhosis | [facility] | + + + + | 2022-12-16 00:00 | Upper gastrointestinal | [facility] | | | hemorrhage | | + + + + | 2022-12-16 00:00 | Upper gastrointestinal | [facility] | | | hemorrhage | | + + + + | 2022-12-16 16:14 | TYPE 2 DIABETES MELLITUS | [facility] | | | WITHOUT COMPLICATIONS | | + + + + | 2022-12-16 16:14 | NICOTINE DEPENDENCE, | [facility] | | | UNSPECIFIED, UNCOMPLICATED | | + + + + | 2022-12-16 16:14 | ALCOHOLIC CIRRHOSIS OF | [facility] | | | LIVER WITHOUT ASCITES | | + + + + | 2022-12-16 16:14 | HEMATEMESIS | [facility] | + + + + | 2022-12-16 16:14 | SKILLED NURSING (CURRENT) USE OF | [facility] | | | INSULIN | | + + + + | 2022-12-16 16:14 | OTHER SKILLED NURSING (CURRENT) | [facility] | | | DRUG THERAPY | | + + + + | 2022-12-16 16:14 | OTHER SPECIFIED | [facility] | | | POSTPROCEDURAL STATES | | + + + + | 2022-12-19 00:00 | Hematemesis | [facility] | + + + + | 2022-12-19 04:04 | TYPE 2 DIABETES MELLITUS | [facility] | | | WITHOUT COMPLICATIONS | | + + + + | 2022-12-19 04:04 | NICOTINE DEPENDENCE, | [facility] | | | UNSPECIFIED, UNCOMPLICATED | | + + + + | 2022-12-19 04:04 | HEMATEMESIS | [facility] | + + + + | 2022-12-19 04:04 | 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 Results/Labs +--------+--------+ +---------+--------+---------+ | test | date | facility | value | unit | notes | +--------+--------+ +---------+--------+---------+ + + | Result panel 1 | + + + + + +-------+---------+ + | | 2021-10-28 | [facility] | 1.7 | mg/dL | (missing) | | (unavailable | 18:09 [facility] | | | | + + + +-------+---------+ + + + | Result panel 2 | + + + + + +-------+ + + | | 2021-10-28 | [facility] | 5.2 | (missing) | (missing) | | (unavailable | 18:09 [facility] | | | | + + + +-------+ + + + + | Result panel 3 | + + + + + +-------+---------+ + | | 2021-10-28 | [facility] | 1.7 | mg/dL | (missing) | | (unavailable | 18:09 [facility] | | | | + + + +-------+---------+ + + + | Result panel 4 | + + + + + +-------+ + + | | 2021-10-28 | [facility] | 5.2 | (missing) | (missing) | | (unavailable | 18:09 [facility] | | | | + + + +-------+ + + + + | Result panel 5 | + + + + + +-------+---------+ + | | 2021-10-28 | [facility] | 1.7 | mg/dL | (missing) | | (unavailable | 18:09 [facility] | | | | + + + +-------+---------+ + + + | Result panel 6 | + + + + + + + + + | | 2021-10-28 | [facility] | NEGATIVE | (missing) | (missing) | | (unavailable | 21:35 [facility] | | | | + + + + + + + + + | Result panel 7 | + + + + + + + + + | | 2021-10-28 | [facility] | NEGATIVE | (missing) | (missing) | | (unavailable | 21:35 [facility] | | | | + + + + + + + + + | Result panel 8 | + + + + + + + + + | | 2021-10-28 | [facility] | NEGATIVE | (missing) | (missing) | | (unavailable | 21:35 [facility] | | | | + + + + + + + + + | Result panel 9 | + + + + + + + + + | | 2021-10-28 | [facility] | NEGATIVE | (missing) | (missing) | | (unavailable | 21:35 [facility] | | | | + + + + + + + + + | Result panel 10 | + + + + + +-------+ + + | | 2021-11-02 | [facility] | 285 | (missing) | (missing) | | (unavailable | 13:45 | [facility] | | | | + + + +-------+ + + + + | Result panel 11 | + + + + + +-------+ + + | | 2021-11-02 | [facility] | 285 | (missing) | (missing) | | (unavailable | 13:45 [facility] | | | | + + + +-------+ + + + + | Result panel 12 | + + + + + +-------+ + + | | 2021-11-02 | [facility] | 1.6 | (missing) | (missing) | | (unavailable | 14:00 | [facility] | | | | + + + +-------+ + + + + | Result panel 13 | + + + + + +-------+ + + | | 2021-11-02 | [facility] | 1.6 | (missing) | (missing) | | (unavailable | 14:00 [facility] | | | | + + + +-------+ + + + + | Result panel 14 | + + + + + +-------+ + + | | 2021-11-02 | [facility] | 1.6 | (missing) | (missing) | | (unavailable | 14:00 [facility] | | | | + + + +-------+ + + + + | Result panel 15 | + + + + + +-------+ + + | | 2022-01-11 | [facility] | 217 | (missing) | (missing) | | (unavailable | 14:20 [facility] | | | | + + + +-------+ + + + + | Result panel 16 | + + + + + +------+ + + | | 2022-01-11 | [facility] | 57 | (missing) | (missing) | | (unavailable | 14:28 [facility] | | | | + + + +------+ + + + + | Result panel 17 | + + + + + +------+ + + | | 2022-01-11 | [facility] | 30 | (missing) | (missing) | | (unavailable | 14:28 [facility] | | | | + + + +------+ + + + + | Result panel 18 | + + + + + +-----+ + + | | 2022-01-11 | [facility] | 7 | (missing) | (missing) | | (unavailable | 14:28 [facility] | | | | + + + +-----+ + + + + | Result panel 19 | + + + + + +-----+ + + | | 2022-01-11 | [facility] | 2 | (missing) | (missing) | | (unavailable | 14:28 [facility] | | | | + + + +-----+ + + + + | Result panel 20 | + + + + + +-----+ + + | | 2022-01-11 | [facility] | 1 | (missing) | (missing) | | (unavailable | 14:28 [facility] | | | | + + + +-----+ + + + + | Result panel 21 | + + + + + +-----+ + + | | 2022-01-11 | [facility] | 3 | (missing) | (missing) | | (unavailable | 14:28 [facility] | | | | + + + +-----+ + + + + | Result panel 22 | + + + + + + + + + | | 2022-01-11 | [facility] | | (missing) | (missing) | | (unavailable | 14:28 | [facility] | [facility] | | | + + + + + + + + + | Result panel 23 | + + + + + +--------+ + + | | 2022-01-11 | [facility] | 28.9 | (missing) | (missing) | | (unavailable | 14:28 [facility] | | | | + + + +--------+ + + + + | Result panel 24 | + + + + + +------+ + + | | 2022-01-11 | [facility] | 57 | (missing) | (missing) | | (unavailable | 14:28 [facility] | | | | + + + +------+ + + + + | Result panel 25 | + + + + + +------+ + + | | 2022-01-11 | [facility] | 30 | (missing) | (missing) | | (unavailable | 14:28 [facility] | | | | + + + +------+ + + + + | Result panel 26 | + + + + + +-----+ + + | | 2022-01-11 | [facility] | 7 | (missing) | (missing) | | (unavailable | 14:28 [facility] | | | | + + + +-----+ + + + + | Result panel 27 | + + + + + +-----+ + + | | 2022-01-11 | [facility] | 2 | (missing) | (missing) | | (unavailable | 14:28 [facility] | | | | + + + +-----+ + + + + | Result panel 28 | + + + + + +-----+ + + | | 2022-01-11 | [facility] | 1 | (missing) | (missing) | | (unavailable | 14:28 [facility] | | | | + + + +-----+ + + + + | Result panel 29 | + + + + + +-----+ + + | | 2022-01-11 | [facility] | 3 | (missing) | (missing) | | (unavailable | 14:28 [facility] | | | | + + + +-----+ + + + + | Result panel 30 | + + + + + + + + + | | 2022-01-11 | [facility] | | (missing) | (missing) | | (unavailable | 14:28 | [facility] | [facility] | [facility] | | | + + + + + + + + + | Result panel 31 | + + + + + +--------+ + + | | 2022-01-11 | [facility] | 28.9 | (missing) | (missing) | | (unavailable | 14:28 | [facility] | | | | + + + +--------+ + + + + | Result panel 32 | + + + + + +------+ + + | | 2022-01-11 | [facility] | 57 | (missing) | (missing) | | (unavailable | 14:28 [facility] | | | | + + + +------+ + + + + | Result panel 33 | + + + + + +------+ + + | | 2022-01-11 | [facility] | 30 | (missing) | (missing) | | (unavailable | 14:28 | [facility] | | | | + + + +------+ + + + + | Result panel 34 | + + + + + +-----+ + + | | 2022-01-11 | [facility] | 7 | (missing) | (missing) | | (unavailable | 14:28 | [facility] | | | | + + + +-----+ + + + + | Result panel 35 | + + + + + +-----+ + + | | 2022-01-11 | [facility] | 2 | (missing) | (missing) | | (unavailable | 14:28 | [facility] | | | | + + + +-----+ + + + + | Result panel 36 | + + + + + +-----+ + + | | 2022-01-11 | [facility] | 1 | (missing) | (missing) | | (unavailable | 14:28 | [facility] | | | | + + + +-----+ + + + + | Result panel 37 | + + + + + +-----+ + + | | 2022-01-11 | [facility] | 3 | (missing) | (missing) | | (unavailable | 14:28 | [facility] | | | | + + + +-----+ + + + + | Result panel 38 | + + + + + + + + + | | 2022-01-11 | [facility] | | (missing) | (missing) | | (unavailable | 14:28 | [facility] | [facility] | | | + + + + + + + + + | Result panel 39 | + + + + + +-------+ + + | | 2022-01-20 | [facility] | 2.4 | (missing) | (missing) | | (unavailable | 09:48 | [facility] | | | | + + + +-------+ + + + + | Result panel 40 | + + + + + + + + + | | 2022-01-20 | [facility] | SEE COMMENT | (missing) | (missing) | | (unavailable | 09:48 | [facility] | | | | + + + + + + + + + | Result panel 41 | + + + + + +--------+ + + | | 2022-01-20 | [facility] | 4.33 | (missing) | (missing) | | (unavailable | 09:48 | [facility] | | | | + + + +--------+ + + + + | Result panel 42 | + + + + + +--------+ + + | | 2022-01-20 | [facility] | 12.9 | (missing) | (missing) | | (unavailable | 09:48 | [facility] | | | | + + + +--------+ + + + + | Result panel 43 | + + + + + +--------+ + + | | 2022-01-20 | [facility] | 38.4 | (missing) | (missing) | | (unavailable | 09:48 | [facility] | | | | + + + +--------+ + + + + | Result panel 44 | + + + + + +--------+ + + | | 2022-01-20 | [facility] | 88.8 | (missing) | (missing) | | (unavailable | 09:48 | [facility] | | | | + + + +--------+ + + + + | Result panel 45 | + + + + + +--------+ + + | | 2022-01-20 | [facility] | 29.7 | (missing) | (missing) | | (unavailable | 09:48 | [facility] | | | + + + +--------+ + + + + | Result panel 46 | + + + + + +--------+ + + | | 2022-01-20 | [facility] | 33.5 | (missing) | (missing) | | (unavailable | 09:48 | [facility] | | | + + + +--------+ + + + + | Result panel 47 | + + + + + +--------+ + + | | 2022-01-20 | [facility] | 14.3 | (missing) | (missing) | | (unavailable | 09:48 | [facility] | | | + + + +--------+ + + + + | Result panel 48 | + + + + + +------+ + + | | 2022-01-20 | [facility] | 46 | (missing) | (missing) | | (unavailable | 09:48 | [facility] | | | + + + +------+ + + + + | Result panel 49 | + + + + + +--------+ + + | | 2022-01-20 | [facility] | 55.1 | (missing) | (missing) | | (unavailable | 09:48 | [facility] | | | + + + +--------+ + + + + | Result panel 50 | + + + + + +--------+ + + | | 2022-01-20 | [facility] | 31.4 | (missing) | (missing) | | (unavailable | 09:48 | [facility] | | | + + + +--------+ + + + + | Result panel 51 | + + + + + +-------+ + + | | 2022-01-20 | [facility] | 8.5 | (missing) | (missing) | | (unavailable | 09:48 | [facility] | | | + + + +-------+ + + + + | Result panel 52 | + + + + + +-------+ + + | | 2022-01-20 | [facility] | 4.1 | (missing) | (missing) | | (unavailable | 09:48 | [facility] | | | + + + +-------+ + + + + | Result panel 53 | + + + + + +-------+ + + | | 2022-01-20 | [facility] | 0.9 | (missing) | (missing) | | (unavailable | 09:48 | [facility] | | | + + + +-------+ + + + + | Result panel 54 | + + + + + +-------+---------+ + | | 2022-01-20 | [facility] | 228 | mg/dL | (missing) | | (unavailable | 09:48 | [facility] | | | + + + +-------+---------+ + + + | Result panel 55 | + + + + + +------+---------+ + | | 2022-01-20 | [facility] | 16 | mg/dL | (missing) | | (unavailable | 09:48 | [facility] | | | | + + + +------+---------+ + + + | Result panel 56 | + + + + + +--------+---------+ + | | 2022-01-20 | [facility] | 0.78 | mg/dL | (missing) | | (unavailable | 09:48 | [facility] | | | | + + + +--------+---------+ + + + | Result panel 57 | + + + + + +-------+ + + | | 2022-01-20 | [facility] | 113 | (missing) | (missing) | | (unavailable | 09:48 | [facility] | | | + + + +-------+ + + + + | Result panel 58 | + + + + + +---------+ + + | | 2022-01-20 | [facility] | 20.51 | (missing) | (missing) | | (unavailable | 09:48 | [facility] | | | + + + +---------+ + + + + | Result panel 59 | + + + + + +-------+ + + | | 2022-01-20 | [facility] | 138 | (missing) | (missing) | | (unavailable | 09:48 | [facility] | | | + + + +-------+ + + + + | Result panel 60 | + + + + + +-------+ + + | | 2022-01-20 | [facility] | 3.7 | (missing) | (missing) | | (unavailable | 09:48 | [facility] | | | + + + +-------+ + + + + | Result panel 61 | + + + + + +-------+ + + | | 2022-01-20 | [facility] | 101 | (missing) | (missing) | | (unavailable | 09:48 | [facility] | | | + + + +-------+ + + + + | Result panel 62 | + + + + + +------+ + + | | 2022-01-20 | [facility] | 31 | (missing) | (missing) | | (unavailable | 09:48 | [facility] | | | + + + +------+ + + + + | Result panel 63 | + + + + + +-------+ + + | | 2022-01-20 | [facility] | 9.7 | (missing) | (missing) | | (unavailable | 09:48 | [facility] | | | + + + +-------+ + + + + | Result panel 64 | + + + + + +-------+---------+ + | | 2022-01-20 | [facility] | 8.6 | mg/dL | (missing) | | (unavailable | 09:48 | [facility] | | | | + + + +-------+---------+ + + + | Result panel 65 | + + + + + +-------+ + + | | 2022-01-20 | [facility] | 6.2 | (missing) | (missing) | | (unavailable | 09:48 | [facility] | | | | + + + +-------+ + + + + | Result panel 66 | + + + + + +-------+ + + | | 2022-01-20 | [facility] | 3.4 | (missing) | (missing) | | (unavailable | 09:48 | [facility] | | | + + + +-------+ + + + + | Result panel 67 | + + + + + +-------+ + + | | 2022-01-20 | [facility] | 2.8 | (missing) | (missing) | | (unavailable | 09:48 | [facility] | | | + + + +-------+ + + + + | Result panel 68 | + + + + + +--------+ + + | | 2022-01-20 | [facility] | 1.21 | (missing) | (missing) | | (unavailable | 09:48 | [facility] | | | + + + +--------+ + + + + | Result panel 69 | + + + + + +-------+ + + | | 2022-01-20 | [facility] | 0.7 | (missing) | (missing) | | (unavailable | 09:48 | [facility] | | | + + + +-------+ + + + + | Result panel 70 | + + + + + +------+ + + | | 2022-01-20 | [facility] | 24 | (missing) | (missing) | | (unavailable | 09:48 | [facility] | | | + + + +------+ + + + + | Result panel 71 | + + + + + +------+ + + | | 2022-01-20 | [facility] | 37 | (missing) | (missing) | | (unavailable | 09:48 | [facility] | | | + + + +------+ + + + + | Result panel 72 | + + + + + +-------+ + + | | 2022-01-20 | [facility] | 151 | (missing) | (missing) | | (unavailable | 09:48 | [facility] | | | + + + +-------+ + + + + | Result panel 73 | + + + + + +--------+ + + | | 2022-01-20 | [facility] | 85.0 | (missing) | (missing) | | (unavailable | 09:48 | [facility] | | | + + + +--------+ + + + + | Result panel 74 | + + + + + +------+ + + | | 2022-01-20 | [facility] | <3 | (missing) | (missing) | | (unavailable | 09:48 | [facility] | | | | + + + +------+ + + + + | Result panel 75 | + + + + + +-------+ + + | | 2022-01-20 | [facility] | 2.4 | (missing) | (missing) | | (unavailable | 09:48 | [facility] | | | + + + +-------+ + + + + | Result panel 76 | + + + + + + + + + | | 2022-01-20 | [facility] | SEE COMMENT | (missing) | (missing) | | (unavailable | 09:48 | [facility] | | | + + + + + + + + + | Result panel 77 | + + + + + +--------+ + + | | 2022-01-20 | [facility] | 4.33 | (missing) | (missing) | | (unavailable | 09:48 | [facility] | | | + + + +--------+ + + + + | Result panel 78 | + + + + + +--------+ + + | | 2022-01-20 | [facility] | 12.9 | (missing) | (missing) | | (unavailable | 09:48 | [facility] | | | + + + +--------+ + + + + | Result panel 79 | + + + + + +--------+ + + | | 2022-01-20 | [facility] | 38.4 | (missing) | (missing) | | (unavailable | 09:48 | [facility] | | | + + + +--------+ + + + + | Result panel 80 | + + + + + +--------+ + + | | 2022-01-20 | [facility] | 88.8 | (missing) | (missing) | | (unavailable | 09:48 | [facility] | | | + + + +--------+ + + + + | Result panel 81 | + + + + + +--------+ + + | | 2022-01-20 | [facility] | 29.7 | (missing) | (missing) | | (unavailable | 09:48 | [facility] | | | + + + +--------+ + + + + | Result panel 82 | + + + + + +--------+ + + | | 2022-01-20 | [facility] | 33.5 | (missing) | (missing) | | (unavailable | 09:48 | [facility] | | | + + + +--------+ + + + + | Result panel 83 | + + + + + +--------+ + + | | 2022-01-20 | [facility] | 14.3 | (missing) | (missing) | | (unavailable | 09:48 | [facility] | | | + + + +--------+ + + + + | Result panel 84 | + + + + + +------+ + + | | 2022-01-20 | [facility] | 46 | (missing) | (missing) | | (unavailable | 09:48 | [facility] | | | + + + +------+ + + + + | Result panel 85 | + + + + + +--------+ + + | | 2022-01-20 | [facility] | 55.1 | (missing) | (missing) | | (unavailable | 09:48 | [facility] | | | + + + +--------+ + + + + | Result panel 86 | + + + + + +--------+ + + | | 2022-01-20 | [facility] | 31.4 | (missing) | (missing) | | (unavailable | 09:48 | [facility] | | | + + + +--------+ + + + + | Result panel 87 | + + + + + +-------+ + + | | 2022-01-20 | [facility] | 8.5 | (missing) | (missing) | | (unavailable | 09:48 | [facility] | | | + + + +-------+ + + + + | Result panel 88 | + + + + + +-------+ + + | | 2022-01-20 | [facility] | 4.1 | (missing) | (missing) | | (unavailable | 09:48 | [facility] | | | + + + +-------+ + + + + | Result panel 89 | + + + + + +-------+ + + | | 2022-01-20 | [facility] | 0.9 | (missing) | (missing) | | (unavailable | 09:48 | [facility] | | | + + + +-------+ + + + + | Result panel 90 | + + + + + +-------+ + + | | 2022-01-20 | [facility] | 8.8 | (missing) | (missing) | | (unavailable | 09:48 | [facility] | | | + + + +-------+ + + + + | Result panel 91 | + + + + + +------+ + + | | 2022-01-20 | [facility] | <3 | (missing) | (missing) | | (unavailable | 09:48 | [facility] | | | + + + +------+ + + + + | Result panel 92 | + + + + + +-------+ + + | | 2022-01-20 | [facility] | 8.8 | (missing) | (missing) | | (unavailable | 09:48 | [facility] | | | + + + +-------+ + + + + | Result panel 93 | + + + + + +------+ + + | | 2022-01-20 | [facility] | <3 | (missing) | (missing) | | (unavailable | 09:48 | [facility] | | | + + + +------+ + + + + | Result panel 94 | + + + + + +--------+ + + | | 2022-01-20 | [facility] | 14.2 | (missing) | (missing) | | (unavailable | 09:58 | [facility] | | | + + + +--------+ + + + + | Result panel 95 | + + + + + +--------+ + + | | 2022-01-20 | [facility] | 1.14 | (missing) | (missing) | | (unavailable | 09:58 | [facility] | | | + + + +--------+ + + + + | Result panel 96 | + + + + + +--------+ + + | | 2022-01-20 | [facility] | 14.2 | (missing) | (missing) | | (unavailable | 09:58 | [facility] | | | + + + +--------+ + + + + | Result panel 97 | + + + + + +--------+ + + | | 2022-01-20 | [facility] | 1.14 | (missing) | (missing) | | (unavailable | 09:58 | [facility] | | | + + + +--------+ + + + + | Result panel 98 | + + + + + + + + + | | 2022-01-20 | [facility] | YELLOW | (missing) | (missing) | | (unavailable | 10:24 | [facility] | | | + + + + + + + + + | Result panel 99 | + + + + + +---------+ + + | | 2022-01-20 | [facility] | CLEAR | (missing) | (missing) | | (unavailable | 10:24 | [facility] | | | | + + + +---------+ + + + + | Result panel 100 | + + + + + + + + + | | 2022-01-20 | [facility] | NEGATIVE | (missing) | (missing) | | (unavailable | 10:24 | [facility] | | | + + + + + + + + + | Result panel 101 | + + + + + + + + + | | 2022-01-20 | [facility] | NEGATIVE | (missing) | (missing) | | (unavailable | 10:24 | [facility] | | | | + + + + + + + + + | Result panel 102 | + + + + + + + + + | | 2022-01-20 | [facility] | NEGATIVE | (missing) | (missing) | | (unavailable | 10:24 | [facility] | | | + + + + + + + + + | Result panel 103 | + + + + + +---------+ + + | | 2022-01-20 | [facility] | 1.015 | (missing) | (missing) | | (unavailable | 10:24 | [facility] | | | | + + + +---------+ + + + + | Result panel 104 | + + + + + + + + + | | 2022-01-20 | [facility] | NEGATIVE | (missing) | (missing) | | (unavailable | 10:24 | [facility] | | | | + + + + + + + + + | Result panel 105 | + + + + + +-------+ + + | | 2022-01-20 | [facility] | 7.0 | (missing) | (missing) | | (unavailable | 10:24 | [facility] | | | | + + + +-------+ + + + + | Result panel 106 | + + + + + + + + + | | 2022-01-20 | [facility] | NEGATIVE | (missing) | (missing) | | (unavailable | 10:24 | [facility] | | | | + + + + + + + + + | Result panel 107 | + + + + + +-------+ + + | | 2022-01-20 | [facility] | 2.0 | (missing) | (missing) | | (unavailable | 10:24 | [facility] | | | | + + + +-------+ + + + + | Result panel 108 | + + + + + + + + + | | 2022-01-20 | [facility] | NEGATIVE | (missing) | (missing) | | (unavailable | 10:24 | [facility] | | | | + + + + + + + + + | Result panel 109 | + + + + + + + + + | | 2022-01-20 | [facility] | NEGATIVE | (missing) | (missing) | | (unavailable | 10:24 | [facility] | | | | + + + + + + + + + | Result panel 110 | + + + + + + + + + | | 2022-01-20 | [facility] | POSITIVE | (missing) | (missing) | | (unavailable | 10:24 | [facility] | | | | + + + + + + + + + | Result panel 111 | + + + + + + + + + | | 2022-01-20 | [facility] | NEGATIVE | (missing) | (missing) | | (unavailable | 10:24 | [facility] | | | | + + + + + + + + + | Result panel 112 | + + + + + + + + + | | 2022-01-20 | [facility] | NEGATIVE | (missing) | (missing) | | (unavailable | 10:24 | [facility] | | | | + + + + + + + + + | Result panel 113 | + + + + + + + + + | | 2022-01-20 | [facility] | NEGATIVE | (missing) | (missing) | | (unavailable | 10:24 | [facility] | | | | + + + + + + + + + | Result panel 114 | + + + + + + + + + | | 2022-01-20 | [facility] | NEGATIVE | (missing) | (missing) | | (unavailable | 10:24 | [facility] | | | | + + + + + + + + + | Result panel 115 | + + + + + + + + + | | 2022-01-20 | [facility] | NEGATIVE | (missing) | (missing) | | (unavailable | 10:24 | [facility] | | | | + + + + + + + + + | Result panel 116 | + + + + + + + + + | | 2022-01-20 | [facility] | NEGATIVE | (missing) | (missing) | | (unavailable | 10:24 | [facility] | | | | + + + + + + + + + | Result panel 117 | + + + + + + + + + | | 2022-01-20 | [facility] | NEGATIVE | (missing) | (missing) | | (unavailable | 10:24 | [facility] | | | | + + + + + + + + + | Result panel 118 | + + + + + + + + + | | 2022-01-20 | [facility] | NEGATIVE | (missing) | (missing) | | (unavailable | 10:24 | [facility] | | | | + + + + + + + + + | Result panel 119 | + + + + + + + + + | | 2022-01-20 | [facility] | NEGATIVE | (missing) | (missing) | | (unavailable | 10:24 | [facility] | | | + + + + + + + + + | Result panel 120 | + + + + + + + + + | | 2022-01-20 | [facility] | NEGATIVE | (missing) | (missing) | | (unavailable | 10:24 | [facility] | | | | + + + + + + + + + | Result panel 121 | + + + + + + + + + | | 2022-01-20 | [facility] | NEGATIVE | (missing) | (missing) | | (unavailable | 10:24 | [facility] | | | | + + + + + + + + + | Result panel 122 | + + + + + + + + + | | 2022-01-20 | [facility] | POSITIVE | (missing) | (missing) | | (unavailable | 10:24 | [facility] | | | | + + + + + + + + + | Result panel 123 | + + + + + + + + + | | 2022-01-20 | [facility] | YELLOW | (missing) | (missing) | | (unavailable | 10:24 | [facility] | | | | + + + + + + + + + | Result panel 124 | + + + + + +---------+ + + | | 2022-01-20 | [facility] | CLEAR | (missing) | (missing) | | (unavailable | 10:24 | [facility] | | | | + + + +---------+ + + + + | Result panel 125 | + + + + + + + + + | | 2022-01-20 | [facility] | NEGATIVE | (missing) | (missing) | | (unavailable | 10:24 | [facility] | | | | + + + + + + + + + | Result panel 126 | + + + + + + + + + | | 2022-01-20 | [facility] | NEGATIVE | (missing) | (missing) | | (unavailable | 10:24 | [facility] | | | | + + + + + + + + + | Result panel 127 | + + + + + + + + + | | 2022-01-20 | [facility] | NEGATIVE | (missing) | (missing) | | (unavailable | 10:24 | [facility] | | | | + + + + + + + + + | Result panel 128 | + + + + + +---------+ + + | | 2022-01-20 | [facility] | 1.015 | (missing) | (missing) | | (unavailable | 10:24 | [facility] | | | | + + + +---------+ + + + + | Result panel 129 | + + + + + + + + + | | 2022-01-20 | [facility] | NEGATIVE | (missing) | (missing) | | (unavailable | 10:24 | [facility] | | | | + + + + + + + + + | Result panel 130 | + + + + + +-------+ + + | | 2022-01-20 | [facility] | 7.0 | (missing) | (missing) | | (unavailable | 10:24 | [facility] | | | | + + + +-------+ + + + + | Result panel 131 | + + + + + + + + + | | 2022-01-20 | [facility] | NEGATIVE | (missing) | (missing) | | (unavailable | 10:24 | [facility] | | | | + + + + + + + + + | Result panel 132 | + + + + + +-------+ + + | | 2022-01-20 | [facility] | 2.0 | (missing) | (missing) | | (unavailable | 10:24 | [facility] | | | | + + + +-------+ + + + + | Result panel 133 | + + + + + + + + + | | 2022-01-20 | [facility] | NEGATIVE | (missing) | (missing) | | (unavailable | 10:24 | [facility] | | | | + + + + + + + + + | Result panel 134 | + + + + + + + + + | | 2022-01-20 | [facility] | NEGATIVE | (missing) | (missing) | | (unavailable | 10:24 | [facility] | | | | + + + + + + + + + | Result panel 135 | + + + + + + + + + | | 2022-01-20 | [facility] | POSITIVE | (missing) | (missing) | | (unavailable | 10:24 | [facility] | | | | + + + + + + + + + | Result panel 136 | + + + + + + + + + | | 2022-01-20 | [facility] | NEGATIVE | (missing) | (missing) | | (unavailable | 10:24 | [facility] | | | | + + + + + + + + + | Result panel 137 | + + + + + + + + + | | 2022-01-20 | [facility] | NEGATIVE | (missing) | (missing) | | (unavailable | 10:24 | [facility] | | | | + + + + + + + + + | Result panel 138 | + + + + + + + + + | | 2022-01-20 | [facility] | NEGATIVE | (missing) | (missing) | | (unavailable | 10:24 | [facility] | | | | + + + + + + + + + | Result panel 139 | + + + + + + + + + | | 2022-01-20 | [facility] | NEGATIVE | (missing) | (missing) | | (unavailable | 10:24 | [facility] | | | | + + + + + + + + + | Result panel 140 | + + + + + + + + + | | 2022-01-20 | [facility] | NEGATIVE | (missing) | (missing) | | (unavailable | 10:24 | [facility] | | | | + + + + + + + + + | Result panel 141 | + + + + + + + + + | | 2022-01-20 | [facility] | NEGATIVE | (missing) | (missing) | | (unavailable | 10:24 | [facility] | | | | + + + + + + + + + | Result panel 142 | + + + + + + + + + | | 2022-01-20 | [facility] | NEGATIVE | (missing) | (missing) | | (unavailable | 10:24 | [facility] | | | | + + + + + + + + + | Result panel 143 | + + + + + + + + + | | 2022-01-20 | [facility] | NEGATIVE | (missing) | (missing) | | (unavailable | 10:24 | [facility] | | | | + + + + + + + + + | Result panel 144 | + + + + + + + + + | | 2022-01-20 | [facility] | NEGATIVE | (missing) | (missing) | | (unavailable | 10:24 | [facility] | | | | + + + + + + + + + | Result panel 145 | + + + + + + + + + | | 2022-01-20 | [facility] | NEGATIVE | (missing) | (missing) | | (unavailable | 10:24 | [facility] | | | | + + + + + + + + + | Result panel 146 | + + + + + + + + + | | 2022-01-20 | [facility] | NEGATIVE | (missing) | (missing) | | (unavailable | 10:24 | [facility] | | | | + + + + + + + + + | Result panel 147 | + + + + + + + + + | | 2022-01-20 | [facility] | POSITIVE | (missing) | (missing) | | (unavailable | 10:24 | [facility] | | | | + + + + + + + + + | Result panel 148 | + + + + + + + + + | | 2022-01-20 | [facility] | POSITIVE | (missing) | (missing) | | (unavailable | 10:24 | [facility] | | | | + + + + + + + + + | Result panel 149 | + + + + + + + + + | | 2022-01-20 | [facility] | NEGATIVE | (missing) | (missing) | | (unavailable | 10:24 | [facility] | | | | + + + + + + + + + | Result panel 150 | + + + + + + + + + | | 2022-01-20 | [facility] | NEGATIVE | (missing) | (missing) | | (unavailable | 10:24 | [facility] | | | | + + + + + + + + + | Result panel 151 | + + + + + + + + + | | 2022-01-20 | [facility] | NEGATIVE | (missing) | (missing) | | (unavailable | 10:24 | [facility] | | | | + + + + + + + + + | Result panel 152 | + + + + + + + + + | | 2022-01-20 | [facility] | NEGATIVE | (missing) | (missing) | | (unavailable | 10:24 | [facility] | | | | + + + + + + + + + | Result panel 153 | + + + + + + + + + | | 2022-01-20 | [facility] | NEGATIVE | (missing) | (missing) | | (unavailable | 10:24 | [facility] | | | | + + + + + + + + + | Result panel 154 | + + + + + + + + + | | 2022-01-20 | [facility] | NEGATIVE | (missing) | (missing) | | (unavailable | 10:24 | [facility] | | | | + + + + + + + + + | Result panel 155 | + + + + + + + + + | | 2022-01-20 | [facility] | NEGATIVE | (missing) | (missing) | | (unavailable | 10:24 | [facility] | | | | + + + + + + + + + | Result panel 156 | + + + + + + + + + | | 2022-01-20 | [facility] | NEGATIVE | (missing) | (missing) | | (unavailable | 10:24 | [facility] | | | | + + + + + + + + + | Result panel 157 | + + + + + + + + + | | 2022-01-20 | [facility] | NEGATIVE | (missing) | (missing) | | (unavailable | 10:24 | [facility] | | | | + + + + + + + + + | Result panel 158 | + + + + + + + + + | | 2022-01-20 | [facility] | NEGATIVE | (missing) | (missing) | | (unavailable | 10:24 | [facility] | | | | + + + + + + + + + | Result panel 159 | + + + + + + + + + | | 2022-01-20 | [facility] | NEGATIVE | (missing) | (missing) | | (unavailable | 10:24 | [facility] | | | | + + + + + + + + + | Result panel 160 | + + + + + + + + + | | 2022-01-20 | [facility] | POSITIVE | (missing) | (missing) | | (unavailable | 10:24 | [facility] | | | | + + + + + + + + + | Result panel 161 | + + + + + + + + + | | 2022-01-20 | [facility] | NEGATIVE | (missing) | (missing) | | (unavailable | 12:57 | [facility] | | | | + + + + + + + + + | Result panel 162 | + + + + + + + + + | | 2022-01-20 | [facility] | NEGATIVE | (missing) | (missing) | | (unavailable | 12:57 | [facility] | | | | + + + + + + + + + | Result panel 163 | + + + + + + + + + | | 2022-01-20 | [facility] | NEGATIVE | (missing) | (missing) | | (unavailable | 12:57 | [facility] | | | | + + + + + + + + + | Result panel 164 | + + + + + + + + + | | 2022-01-20 | [facility] | NEGATIVE | (missing) | (missing) | | (unavailable | 12:57 | [facility] | | | | + + + + + + + + + | Result panel 165 | + + + + + +-------+---------+ + | | 2022-01-21 | [facility] | 171 | mg/dL | (missing) | | (unavailable | 05:32 | [facility] | | | | + + + +-------+---------+ + + + | Result panel 166 | + + + + + +------+---------+ + | | 2022-01-21 | [facility] | 10 | mg/dL | (missing) | | (unavailable | 05:32 | [facility] | | | | + + + +------+---------+ + + + | Result panel 167 | + + + + + +--------+---------+ + | | 2022-01-21 | [facility] | 0.78 | mg/dL | (missing) | | (unavailable | 05:32 | [facility] | | | | + + + +--------+---------+ + + + | Result panel 168 | + + + + + +-------+ + + | | 2022-01-21 | [facility] | 113 | (missing) | (missing) | | (unavailable | 05:32 | [facility] | | | | + + + +-------+ + + + + | Result panel 169 | + + + + + +---------+ + + | | 2022-01-21 | [facility] | 12.82 | (missing) | (missing) | | (unavailable | 05:32 | [facility] | | | | + + + +---------+ + + + + | Result panel 170 | + + + + + +-------+ + + | | 2022-01-21 | [facility] | 141 | (missing) | (missing) | | (unavailable | 05:32 | [facility] | | | | + + + +-------+ + + + + | Result panel 171 | + + + + + +-------+ + + | | 2022-01-21 | [facility] | 3.8 | (missing) | (missing) | | (unavailable | 05:32 | [facility] | | | | + + + +-------+ + + + + | Result panel 172 | + + + + + +-------+ + + | | 2022-01-21 | [facility] | 105 | (missing) | (missing) | | (unavailable | 05:32 | [facility] | | | | + + + +-------+ + + + + | Result panel 173 | + + + + + +------+ + + | | 2022-01-21 | [facility] | 28 | (missing) | (missing) | | (unavailable | 05:32 | [facility] | | | + + + +------+ + + + + | Result panel 174 | + + + + + +--------+ + + | | 2022-01-21 | [facility] | 11.8 | (missing) | (missing) | | (unavailable | 05:32 | [facility] | | | + + + +--------+ + + + + | Result panel 175 | + + + + + +-------+---------+ + | | 2022-01-21 | [facility] | 8.4 | mg/dL | (missing) | | (unavailable | 05:32 | [facility] | | | + + + +-------+---------+ + + + | Result panel 176 | + + + + + +-------+ + + | | 2022-01-21 | [facility] | 5.9 | (missing) | (missing) | | (unavailable | 05:32 | [facility] | | | + + + +-------+ + + + + | Result panel 177 | + + + + + +-------+ + + | | 2022-01-21 | [facility] | 3.2 | (missing) | (missing) | | (unavailable | 05:32 | [facility] | | | + + + +-------+ + + + + | Result panel 178 | + + + + + +-------+ + + | | 2022-01-21 | [facility] | 2.7 | (missing) | (missing) | | (unavailable | 05:32 | [facility] | | | + + + +-------+ + + + + | Result panel 179 | + + + + + +--------+ + + | | 2022-01-21 | [facility] | 1.19 | (missing) | (missing) | | (unavailable | 05:32 | [facility] | | | + + + +--------+ + + + + | Result panel 180 | + + + + + +-------+ + + | | 2022-01-21 | [facility] | 0.8 | (missing) | (missing) | | (unavailable | 05:32 | [facility] | | | + + + +-------+ + + + + | Result panel 181 | + + + + + +------+ + + | | 2022-01-21 | [facility] | 23 | (missing) | (missing) | | (unavailable | 05:32 | [facility] | | | + + + +------+ + + + + | Result panel 182 | + + + + + +------+ + + | | 2022-01-21 | [facility] | 34 | (missing) | (missing) | | (unavailable | 05:32 | [facility] | | | + + + +------+ + + + + | Result panel 183 | + + + + + +-------+ + + | | 2022-01-21 | [facility] | 118 | (missing) | (missing) | | (unavailable | 05:32 | [facility] | | | + + + +-------+ + + + + | Result panel 184 | + + + + + +--------+ + + | | 2022-01-21 | [facility] | 29.0 | (missing) | (missing) | | (unavailable | 08:05 | [facility] | | | + + + +--------+ + + + + | Result panel 185 | + + + + + +-------+ + + | | 2022-01-21 | [facility] | 219 | (missing) | (missing) | | (unavailable | 08:06 | [facility] | | | + + + +-------+ + + + + | Result panel 186 | + + + + + +-------+ + + | | 2022-01-21 | [facility] | 219 | (missing) | (missing) | | (unavailable | 08:06 | [facility] | | | + + + +-------+ + + + + | Result panel 187 | + + + + + +-------+ + + | | 2022-01-27 | [facility] | 2.8 | (missing) | (missing) | | (unavailable | 04:37 | [facility] | | | + + + +-------+ + + + + | Result panel 188 | + + + + + + + + + | | 2022-01-27 | [facility] | SEE COMMENT | (missing) | (missing) | | (unavailable | 04:37 | [facility] | | | + + + + + + + + + | Result panel 189 | + + + + + +--------+ + + | | 2022-01-27 | [facility] | 4.24 | (missing) | (missing) | | (unavailable | 04:37 | [facility] | | | + + + +--------+ + + + + | Result panel 190 | + + + + + +--------+ + + | | 2022-01-27 | [facility] | 12.8 | (missing) | (missing) | | (unavailable | 04:37 | [facility] | | | + + + +--------+ + + + + | Result panel 191 | + + + + + +--------+ + + | | 2022-01-27 | [facility] | 37.8 | (missing) | (missing) | | (unavailable | 04:37 | [facility] | | | + + + +--------+ + + + + | Result panel 192 | + + + + + +--------+ + + | | 2022-01-27 | [facility] | 89.1 | (missing) | (missing) | | (unavailable | 04:37 | [facility] | | | + + + +--------+ + + + + | Result panel 193 | + + + + + +--------+ + + | | 2022-01-27 | [facility] | 30.1 | (missing) | (missing) | | (unavailable | 04:37 | [facility] | | | + + + +--------+ + + + + | Result panel 194 | + + + + + +--------+ + + | | 2022-01-27 | [facility] | 33.8 | (missing) | (missing) | | (unavailable | 04:37 | [facility] | | | + + + +--------+ + + + + | Result panel 195 | + + + + + +--------+ + + | | 2022-01-27 | [facility] | 15.2 | (missing) | (missing) | | (unavailable | 04:37 | [facility] | | | + + + +--------+ + + + + | Result panel 196 | + + + + + +------+ + + | | 2022-01-27 | [facility] | 47 | (missing) | (missing) | | (unavailable | 04:37 | [facility] | | | + + + +------+ + + + + | Result panel 197 | + + + + + +--------+ + + | | 2022-01-27 | [facility] | 58.3 | (missing) | (missing) | | (unavailable | 04:37 | [facility] | | | + + + +--------+ + + + + | Result panel 198 | + + + + + +--------+ + + | | 2022-01-27 | [facility] | 27.6 | (missing) | (missing) | | (unavailable | 04:37 | [facility] | | | + + + +--------+ + + + + | Result panel 199 | + + + + + +--------+ + + | | 2022-01-27 | [facility] | 10.2 | (missing) | (missing) | | (unavailable | 04:37 | [facility] | | | + + + +--------+ + + + + | Result panel 200 | + + + + + +-------+ + + | | 2022-01-27 | [facility] | 3.3 | (missing) | (missing) | | (unavailable | 04:37 | [facility] | | | + + + +-------+ + + + + | Result panel 201 | + + + + + +-------+ + + | | 2022-01-27 | [facility] | 0.6 | (missing) | (missing) | | (unavailable | 04:37 | [facility] | | | + + + +-------+ + + + + | Result panel 202 | + + + + + +--------+ + + | | 2022-01-27 | [facility] | 13.8 | (missing) | (missing) | | (unavailable | 04:37 | [facility] | | | + + + +--------+ + + + + | Result panel 203 | + + + + + +--------+ + + | | 2022-01-27 | [facility] | 1.10 | (missing) | (missing) | | (unavailable | 04:37 | [facility] | | | + + + +--------+ + + + + | Result panel 204 | + + + + + +--------+ + + | | 2022-01-27 | [facility] | 30.0 | (missing) | (missing) | | (unavailable | 04:37 | [facility] | | | + + + +--------+ + + + + | Result panel 205 | + + + + + +-------+---------+ + | | 2022-01-27 | [facility] | 161 | mg/dL | (missing) | | (unavailable | 04:37 | [facility] | | | + + + +-------+---------+ + + + | Result panel 206 | + + + + + +-----+---------+ + | | 2022-01-27 | [facility] | 9 | mg/dL | (missing) | | (unavailable | 04:37 | [facility] | | | + + + +-----+---------+ + + + | Result panel 207 | + + + + + +--------+---------+ + | | 2022-01-27 | [facility] | 0.80 | mg/dL | (missing) | | (unavailable | 04:37 | [facility] | | | + + + +--------+---------+ + + + | Result panel 208 | + + + + + +-------+ + + | | 2022-01-27 | [facility] | 112 | (missing) | (missing) | | (unavailable | 04:37 | [facility] | | | + + + +-------+ + + + + | Result panel 209 | + + + + + +---------+ + + | | 2022-01-27 | [facility] | 11.25 | (missing) | (missing) | | (unavailable | 04:37 | [facility] | | | + + + +---------+ + + + + | Result panel 210 | + + + + + +-------+ + + | | 2022-01-27 | [facility] | 143 | (missing) | (missing) | | (unavailable | 04:37 | [facility] | | | + + + +-------+ + + + + | Result panel 211 | + + + + + +-------+ + + | | 2022-01-27 | [facility] | 3.7 | (missing) | (missing) | | (unavailable | 04:37 | [facility] | | | + + + +-------+ + + + + | Result panel 212 | + + + + + +-------+ + + | | 2022-01-27 | [facility] | 103 | (missing) | (missing) | | (unavailable | 04:37 | [facility] | | | + + + +-------+ + + + + | Result panel 213 | + + + + + +------+ + + | | 2022-01-27 | [facility] | 32 | (missing) | (missing) | | (unavailable | 04:37 | [facility] | | | + + + +------+ + + + + | Result panel 214 | + + + + + +--------+ + + | | 2022-01-27 | [facility] | 11.7 | (missing) | (missing) | | (unavailable | 04:37 | [facility] | | | + + + +--------+ + + + + | Result panel 215 | + + + + + +-------+---------+ + | | 2022-01-27 | [facility] | 8.3 | mg/dL | (missing) | | (unavailable | 04:37 | [facility] | | | + + + +-------+---------+ + + + | Result panel 216 | + + + + + +-------+ + + | | 2022-01-27 | [facility] | 6.5 | (missing) | (missing) | | (unavailable | 04:37 | [facility] | | | + + + +-------+ + + + + | Result panel 217 | + + + + + +-------+ + + | | 2022-01-27 | [facility] | 3.6 | (missing) | (missing) | | (unavailable | 04:37 | [facility] | | | + + + +-------+ + + + + | Result panel 218 | + + + + + +-------+ + + | | 2022-01-27 | [facility] | 2.9 | (missing) | (missing) | | (unavailable | 04:37 | [facility] | | | + + + +-------+ + + + + | Result panel 219 | + + + + + +--------+ + + | | 2022-01-27 | [facility] | 1.24 | (missing) | (missing) | | (unavailable | 04:37 | [facility] | | | + + + +--------+ + + + + | Result panel 220 | + + + + + +-------+ + + | | 2022-01-27 | [facility] | 0.7 | (missing) | (missing) | | (unavailable | 04:37 | [facility] | | | + + + +-------+ + + + + | Result panel 221 | + + + + + +------+ + + | | 2022-01-27 | [facility] | 30 | (missing) | (missing) | | (unavailable | 04:37 | [facility] | | | + + + +------+ + + + + | Result panel 222 | + + + + + +------+ + + | | 2022-01-27 | [facility] | 40 | (missing) | (missing) | | (unavailable | 04:37 | [facility] | | | + + + +------+ + + + + | Result panel 223 | + + + + + +-------+ + + | | 2022-01-27 | [facility] | 186 | (missing) | (missing) | | (unavailable | 04:37 | [facility] | | | + + + +-------+ + + + + | Result panel 224 | + + + + + +------+ + + | | 2022-01-27 | [facility] | 38 | (missing) | (missing) | | (unavailable | 04:37 | [facility] | | | + + + +------+ + + + + | Result panel 225 | + + + + + +--------+ + + | | 2022-01-27 | [facility] | <4.0 | (missing) | (missing) | | (unavailable | 04:37 | [facility] | | | + + + +--------+ + + + + | Result panel 226 | + + + + + +--------+ + + | | 2022-01-27 | [facility] | 28.0 | (missing) | (missing) | | (unavailable | 04:58 | [facility] | | | + + + +--------+ + + + + | Result panel 227 | + + + + + + + + + | | 2022-01-27 | [facility] | NEGATIVE | (missing) | (missing) | | (unavailable | 05:00 | [facility] | | | + + + + + + + + + | Result panel 228 | + + + + + + + + + | | 2022-01-27 | [facility] | NEGATIVE | (missing) | (missing) | | (unavailable | 05:00 | [facility] | | | + + + + + + + + + | Result panel 229 | + + + + + + + + + | | 2022-01-27 | [facility] | NEGATIVE | (missing) | (missing) | | (unavailable | 05:00 | [facility] | | | + + + + + + + + + | Result panel 230 | + + + + + + + + + | | 2022-01-27 | [facility] | NEGATIVE | (missing) | (missing) | | (unavailable | 05:00 | [facility] | | | + + + + + + + + + | Result panel 231 | + + + + + + + + + | | 2022-01-27 | [facility] | YELLOW | (missing) | (missing) | | (unavailable | 05:50 | [facility] | | | + + + + + + + + + | Result panel 232 | + + + + + +---------+ + + | | 2022-01-27 | [facility] | CLEAR | (missing) | (missing) | | (unavailable | 05:50 | [facility] | | | + + + +---------+ + + + + | Result panel 233 | + + + + + + + + + | | 2022-01-27 | [facility] | NEGATIVE | (missing) | (missing) | | (unavailable | 05:50 | [facility] | | | + + + + + + + + + | Result panel 234 | + + + + + + + + + | | 2022-01-27 | [facility] | NEGATIVE | (missing) | (missing) | | (unavailable | 05:50 | [facility] | | | + + + + + + + + + | Result panel 235 | + + + + + + + + + | | 2022-01-27 | [facility] | NEGATIVE | (missing) | (missing) | | (unavailable | 05:50 | [facility] | | | + + + + + + + + + | Result panel 236 | + + + + + +---------+ + + | | 2022-01-27 | [facility] | 1.015 | (missing) | (missing) | | (unavailable | 05:50 | [facility] | | | + + + +---------+ + + + + | Result panel 237 | + + + + + + + + + | | 2022-01-27 | [facility] | NEGATIVE | (missing) | (missing) | | (unavailable | 05:50 | [facility] | | | + + + + + + + + + | Result panel 238 | + + + + + +-------+ + + | | 2022-01-27 | [facility] | 7.5 | (missing) | (missing) | | (unavailable | 05:50 | [facility] | | | + + + +-------+ + + + + | Result panel 239 | + + + + + + + + + | | 2022-01-27 | [facility] | NEGATIVE | (missing) | (missing) | | (unavailable | 05:50 | [facility] | | | + + + + + + + + + | Result panel 240 | + + + + + + + + + | | 2022-01-27 | [facility] | NORMAL | (missing) | (missing) | | (unavailable | 05:50 | [facility] | | | | + + + + + + + + + | Result panel 241 | + + + + + + + + + | | 2022-01-27 | [facility] | NEGATIVE | (missing) | (missing) | | (unavailable | 05:50 | [facility] | | | + + + + + + + + + | Result panel 242 | + + + + + + + + + | | 2022-01-27 | [facility] | NEGATIVE | (missing) | (missing) | | (unavailable | 05:50 | [facility] | | | + + + + + + + + + | Result panel 243 | + + + + + +------+ + + | | 2022-01-27 | [facility] | No | (missing) | (missing) | | (unavailable | 05:50 | [facility] | | | + + + +------+ + + + + | Result panel 244 | + + + + + + + + + | | 2022-01-27 | [facility] | CLEAN CATCH | (missing) | (missing) | | (unavailable | 05:50 | [facility] | | | + + + + + + + + + | Result panel 245 | + + + + + +-------+ + + | | 2022-03-16 | [facility] | 2.6 | (missing) | (missing) | | (unavailable | 06:55 | [facility] | | | + + + +-------+ + + + + | Result panel 246 | + + + + + + + + + | | 2022-03-16 | [facility] | SEE COMMENT | (missing) | (missing) | | (unavailable | 06:55 | [facility] | | | + + + + + + + + + | Result panel 247 | + + + + + +--------+ + + | | 2022-03-16 | [facility] | 5.25 | (missing) | (missing) | | (unavailable | 06:55 | [facility] | | | + + + +--------+ + + + + | Result panel 248 | + + + + + +--------+ + + | | 2022-03-16 | [facility] | 15.8 | (missing) | (missing) | | (unavailable | 06:55 | [facility] | | | + + + +--------+ + + + + | Result panel 249 | + + + + + +--------+ + + | | 2022-03-16 | [facility] | 47.1 | (missing) | (missing) | | (unavailable | 06:55 | [facility] | | | + + + +--------+ + + + + | Result panel 250 | + + + + + +--------+ + + | | 2022-03-16 | [facility] | 89.7 | (missing) | (missing) | | (unavailable | 06:55 | [facility] | | | + + + +--------+ + + + + | Result panel 251 | + + + + + +--------+ + + | | 2022-03-16 | [facility] | 30.1 | (missing) | (missing) | | (unavailable | 06:55 | [facility] | | | + + + +--------+ + + + + | Result panel 252 | + + + + + +--------+ + + | | 2022-03-16 | [facility] | 33.6 | (missing) | (missing) | | (unavailable | 06:55 | [facility] | | | + + + +--------+ + + + + | Result panel 253 | + + + + + +--------+ + + | | 2022-03-16 | [facility] | 14.4 | (missing) | (missing) | | (unavailable | 06:55 | [facility] | | | + + + +--------+ + + + + | Result panel 254 | + + + + + +------+ + + | | 2022-03-16 | [facility] | 43 | (missing) | (missing) | | (unavailable | 06:55 | [facility] | | | + + + +------+ + + + + | Result panel 255 | + + + + + +--------+ + + | | 2022-03-16 | [facility] | 42.9 | (missing) | (missing) | | (unavailable | 06:55 | [facility] | | | + + + +--------+ + + + + | Result panel 256 | + + + + + +--------+ + + | | 2022-03-16 | [facility] | 40.5 | (missing) | (missing) | | (unavailable | 06:55 | [facility] | | | + + + +--------+ + + + + | Result panel 257 | + + + + + +-------+ + + | | 2022-03-16 | [facility] | 9.6 | (missing) | (missing) | | (unavailable | 06:55 | [facility] | | | + + + +-------+ + + + + | Result panel 258 | + + + + + +-------+ + + | | 2022-03-16 | [facility] | 6.3 | (missing) | (missing) | | (unavailable | 06:55 | [facility] | | | + + + +-------+ + + + + | Result panel 259 | + + + + + +-------+ + + | | 2022-03-16 | [facility] | 0.7 | (missing) | (missing) | | (unavailable | 06:55 | [facility] | | | + + + +-------+ + + + + | Result panel 260 | + + + + + +--------+ + + | | 2022-03-16 | [facility] | 14.4 | (missing) | (missing) | | (unavailable | 06:55 | [facility] | | | + + + +--------+ + + + + | Result panel 261 | + + + + + +--------+ + + | | 2022-03-16 | [facility] | 1.16 | (missing) | (missing) | | (unavailable | 06:55 | [facility] | | | + + + +--------+ + + + + | Result panel 262 | + + + + + +-------+---------+ + | | 2022-03-16 | [facility] | 166 | mg/dL | (missing) | | (unavailable | 06:55 | [facility] | | | + + + +-------+---------+ + + + | Result panel 263 | + + + + + +-----+---------+ + | | 2022-03-16 | [facility] | 7 | mg/dL | (missing) | | (unavailable | 06:55 | [facility] | | | + + + +-----+---------+ + + + | Result panel 264 | + + + + + +--------+---------+ + | | 2022-03-16 | [facility] | 0.75 | mg/dL | (missing) | | (unavailable | 06:55 | [facility] | | | + + + +--------+---------+ + + + | Result panel 265 | + + + + + +-------+ + + | | 2022-03-16 | [facility] | 114 | (missing) | (missing) | | (unavailable | 06:55 | [facility] | | | + + + +-------+ + + + + | Result panel 266 | + + + + + +--------+ + + | | 2022-03-16 | [facility] | 9.33 | (missing) | (missing) | | (unavailable | 06:55 | [facility] | | | + + + +--------+ + + + + | Result panel 267 | + + + + + +-------+ + + | | 2022-03-16 | [facility] | 143 | (missing) | (missing) | | (unavailable | 06:55 | [facility] | | | + + + +-------+ + + + + | Result panel 268 | + + + + + +-------+ + + | | 2022-03-16 | [facility] | 3.4 | (missing) | (missing) | | (unavailable | 06:55 | [facility] | | | + + + +-------+ + + + + | Result panel 269 | + + + + + +-------+ + + | | 2022-03-16 | [facility] | 100 | (missing) | (missing) | | (unavailable | 06:55 | [facility] | | | + + + +-------+ + + + + | Result panel 270 | + + + + + +------+ + + | | 2022-03-16 | [facility] | 32 | (missing) | (missing) | | (unavailable | 06:55 | [facility] | | | + + + +------+ + + + + | Result panel 271 | + + + + + +--------+ + + | | 2022-03-16 | [facility] | 14.4 | (missing) | (missing) | | (unavailable | 06:55 | [facility] | | | + + + +--------+ + + + + | Result panel 272 | + + + + + +-------+---------+ + | | 2022-03-16 | [facility] | 9.1 | mg/dL | (missing) | | (unavailable | 06:55 | [facility] | | | + + + +-------+---------+ + + + | Result panel 273 | + + + + + +-------+ + + | | 2022-03-16 | [facility] | 7.6 | (missing) | (missing) | | (unavailable | 06:55 | [facility] | | | + + + +-------+ + + + + | Result panel 274 | + + + + + +-------+ + + | | 2022-03-16 | [facility] | 4.7 | (missing) | (missing) | | (unavailable | 06:55 | [facility] | | | + + + +-------+ + + + + | Result panel 275 | + + + + + +-------+ + + | | 2022-03-16 | [facility] | 2.9 | (missing) | (missing) | | (unavailable | 06:55 | [facility] | | | + + + +-------+ + + + + | Result panel 276 | + + + + + +--------+ + + | | 2022-03-16 | [facility] | 1.62 | (missing) | (missing) | | (unavailable | 06:55 | [facility] | | | + + + +--------+ + + + + | Result panel 277 | + + + + + +-------+ + + | | 2022-03-16 | [facility] | 1.3 | (missing) | (missing) | | (unavailable | 06:55 | [facility] | | | + + + +-------+ + + + + | Result panel 278 | + + + + + +------+ + + | | 2022-03-16 | [facility] | 25 | (missing) | (missing) | | (unavailable | 06:55 | [facility] | | | | + + + +------+ + + + + | Result panel 279 | + + + + + +------+ + + | | 2022-03-16 | [facility] | 20 | (missing) | (missing) | | (unavailable | 06:55 | [facility] | | | + + + +------+ + + + + | Result panel 280 | + + + + + +------+ + + | | 2022-03-16 | [facility] | 89 | (missing) | (missing) | | (unavailable | 06:55 | [facility] | | | | + + + +------+ + + + + | Result panel 281 | + + + + + +------+ + + | | 2022-03-16 | [facility] | 39 | (missing) | (missing) | | (unavailable | 06:55 | [facility] | | | | + + + +------+ + + + + | Result panel 282 | + + + + + +--------+ + + | | 2022-03-16 | [facility] | 32.0 | (missing) | (missing) | | (unavailable | 06:55 | [facility] | | | | + + + +--------+ + + + + | Result panel 283 | + + + + + + + + + | | 2022-03-16 | [facility] | POSITIVE | (missing) | (missing) | | (unavailable | 08:07 | [facility] | | | | + + + + + + + + + | Result panel 284 | + + + + + + + + + | | 2022-03-16 | [facility] | NEGATIVE | (missing) | (missing) | | (unavailable | 08:07 | [facility] | | | | + + + + + + + + + | Result panel 285 | + + + + + + + + + | | 2022-03-16 | [facility] | NEGATIVE | (missing) | (missing) | | (unavailable | 08:07 | [facility] | | | | + + + + + + + + + | Result panel 286 | + + + + + + + + + | | 2022-03-16 | [facility] | NEGATIVE | (missing) | (missing) | | (unavailable | 08:07 | [facility] | | | | + + + + + + + + + | Result panel 287 | + + + + + + + + + | | 2022-03-16 | [facility] | YELLOW | (missing) | (missing) | | (unavailable | 08:42 | [facility] | | | | + + + + + + + + + | Result panel 288 | + + + + + +---------+ + + | | 2022-03-16 | [facility] | CLEAR | (missing) | (missing) | | (unavailable | 08:42 | [facility] | | | | + + + +---------+ + + + + | Result panel 289 | + + + + + + + + + | | 2022-03-16 | [facility] | NEGATIVE | (missing) | (missing) | | (unavailable | 08:42 | [facility] | | | | + + + + + + + + + | Result panel 290 | + + + + + + + + + | | 2022-03-16 | [facility] | NEGATIVE | (missing) | (missing) | | (unavailable | 08:42 | [facility] | | | | + + + + + + + + + | Result panel 291 | + + + + + +---------+ + + | | 2022-03-16 | [facility] | SMALL | (missing) | (missing) | | (unavailable | 08:42 | [facility] | | | | + + + +---------+ + + + + | Result panel 292 | + + + + + +---------+ + + | | 2022-03-16 | [facility] | 1.020 | (missing) | (missing) | | (unavailable | 08:42 | [facility] | | | | + + + +---------+ + + + + | Result panel 293 | + + + + + + + + + | | 2022-03-16 | [facility] | NEGATIVE | (missing) | (missing) | | (unavailable | 08:42 | [facility] | | | | + + + + + + + + + | Result panel 294 | + + + + + +-------+ + + | | 2022-03-16 | [facility] | 8.0 | (missing) | (missing) | | (unavailable | 08:42 | [facility] | | | | + + + +-------+ + + + + | Result panel 295 | + + + + + + + + + | | 2022-03-16 | [facility] | NEGATIVE | (missing) | (missing) | | (unavailable | 08:42 | [facility] | | | | + + + + + + + + + | Result panel 296 | + + + + + +-------+ + + | | 2022-03-16 | [facility] | 1.0 | (missing) | (missing) | | (unavailable | 08:42 | [facility] | | | | + + + +-------+ + + + + | Result panel 297 | + + + + + + + + + | | 2022-03-16 | [facility] | NEGATIVE | (missing) | (missing) | | (unavailable | 08:42 | [facility] | | | | + + + + + + + + + | Result panel 298 | + + + + + + + + + | | 2022-03-16 | [facility] | NEGATIVE | (missing) | (missing) | | (unavailable | 08:42 | [facility] | | | | + + + + + + + + + | Result panel 299 | + + + + + + + + + | | 2022-03-16 | [facility] | CLEAN CATCH | (missing) | (missing) | | (unavailable | 08:42 | [facility] | | | | + + + + + + + + + | Result panel 300 | + + + + + +--------+ + + | | 2022-08-14 | [facility] | 23.2 | (missing) | (missing) | | (unavailable | 13:50:08 | [facility] | | | | + + + +--------+ + + + + | Result panel 301 | + + + + + +-------+ + + | | 2022-08-14 | [facility] | 7.5 | (missing) | (missing) | | (unavailable | 13:50:08 | [facility] | | | + + + +-------+ + + + + | Result panel 302 | + + + + + +-------+ + + | | 2022-08-14 | [facility] | 2.8 | (missing) | (missing) | | (unavailable | 13:50:08 | [facility] | | | + + + +-------+ + + + + | Result panel 303 | + + + + + +-------+ + + | | 2022-08-14 | [facility] | 0.5 | (missing) | (missing) | | (unavailable | 13:50:08 | [facility] | | | + + + +-------+ + + + + | Result panel 304 | + + + + + +-------+---------+ + | | 2022-08-14 | [facility] | 165 | mg/dL | (missing) | | (unavailable | 13:50:08 | [facility] | | | + + + +-------+---------+ + + + | Result panel 305 | + + + + + +------+---------+ + | | 2022-08-14 | [facility] | 15 | mg/dL | (missing) | | (unavailable | 13:50:08 | [facility] | | | + + + +------+---------+ + + + | Result panel 306 | + + + + + +--------+---------+ + | | 2022-08-14 | [facility] | 0.72 | mg/dL | (missing) | | (unavailable | 13:50:08 | [facility] | | | + + + +--------+---------+ + + + | Result panel 307 | + + + + + +-------+ + + | | 2022-08-14 | [facility] | 116 | (missing) | (missing) | | (unavailable | 13:50:08 | [facility] | | | + + + +-------+ + + + + | Result panel 308 | + + + + + +---------+ + + | | 2022-08-14 | [facility] | 20.83 | (missing) | (missing) | | (unavailable | 13:50:08 | [facility] | | | + + + +---------+ + + + + | Result panel 309 | + + + + + +-------+ + + | | 2022-08-14 | [facility] | 141 | (missing) | (missing) | | (unavailable | 13:50:08 | [facility] | | | + + + +-------+ + + + + | Result panel 310 | + + + + + +-------+ + + | | 2022-08-14 | [facility] | 3.7 | (missing) | (missing) | | (unavailable | 13:50:08 | [facility] | | | + + + +-------+ + + + + | Result panel 311 | + + + + + +-------+ + + | | 2022-08-14 | [facility] | 100 | (missing) | (missing) | | (unavailable | 13:50:08 | [facility] | | | + + + +-------+ + + + + | Result panel 312 | + + + + + +------+ + + | | 2022-08-14 | [facility] | 33 | (missing) | (missing) | | (unavailable | 13:50:08 | [facility] | | | + + + +------+ + + + + | Result panel 313 | + + + + + +--------+ + + | | 2022-08-14 | [facility] | 11.7 | (missing) | (missing) | | (unavailable | 13:50:08 | [facility] | | | + + + +--------+ + + + + | Result panel 314 | + + + + + +-------+---------+ + | | 2022-08-14 | [facility] | 9.3 | mg/dL | (missing) | | (unavailable | 13:50:08 | [facility] | | | + + + +-------+---------+ + + + | Result panel 315 | + + + + + +-------+---------+ + | | 2022-08-14 | [facility] | 1.6 | mg/dL | (missing) | | (unavailable | 13:50:08 | [facility] | | | + + + +-------+---------+ + + + | Result panel 316 | + + + + + +-------+ + + | | 2022-08-14 | [facility] | 7.7 | (missing) | (missing) | | (unavailable | 13:50:08 | [facility] | | | + + + +-------+ + + + + | Result panel 317 | + + + + + +-------+ + + | | 2022-08-14 | [facility] | 4.5 | (missing) | (missing) | | (unavailable | 13:50:08 | [facility] | | | + + + +-------+ + + + + | Result panel 318 | + + + + + +-------+ + + | | 2022-08-14 | [facility] | 3.2 | (missing) | (missing) | | (unavailable | 13:50:08 | [facility] | | | + + + +-------+ + + + + | Result panel 319 | + + + + + +--------+ + + | | 2022-08-14 | [facility] | 1.41 | (missing) | (missing) | | (unavailable | 13:50:08 | [facility] | | | | + + + +--------+ + + + + | Result panel 320 | + + + + + +-------+ + + | | 2022-08-14 | [facility] | 1.1 | (missing) | (missing) | | (unavailable | 13:50:08 | [facility] | | | + + + +-------+ + + + + | Result panel 321 | + + + + + +------+ + + | | 2022-08-14 | [facility] | 32 | (missing) | (missing) | | (unavailable | 13:50:08 | [facility] | | | + + + +------+ + + + + | Result panel 322 | + + + + + +------+ + + | | 2022-08-14 | [facility] | 23 | (missing) | (missing) | | (unavailable | 13:50:08 | [facility] | | | + + + +------+ + + + + | Result panel 323 | + + + + + +-------+ + + | | 2022-08-14 | [facility] | 164 | (missing) | (missing) | | (unavailable | 13:50:08 | [facility] | | | + + + +-------+ + + + + | Result panel 324 | + + + + + +------+ + + | | 2022-08-14 | [facility] | 28 | (missing) | (missing) | | (unavailable | 13:50:08 | [facility] | | | + + + +------+ + + + + | Result panel 325 | + + + + + +-------+ + + | | 2022-08-14 | [facility] | 7.2 | (missing) | (missing) | | (unavailable | 13:50:08 | [facility] | | | + + + +-------+ + + + + | Result panel 326 | + + + + + + + + + | | 2022-08-14 | [facility] | (missing) | (missing) | (missing) | | (unavailable | 13:50:08 | [facility] | | | + + + + + + + + + | Result panel 327 | + + + + + +--------+ + + | | 2022-08-14 | [facility] | 5.34 | (missing) | (missing) | | (unavailable | 13:50:08 | [facility] | | | + + + +--------+ + + + + | Result panel 328 | + + + + + +--------+ + + | | 2022-08-14 | [facility] | 16.0 | (missing) | (missing) | | (unavailable | 13:50:08 | [facility] | | | + + + +--------+ + + + + | Result panel 329 | + + + + + +--------+ + + | | 2022-08-14 | [facility] | 48.2 | (missing) | (missing) | | (unavailable | 13:50:08 | [facility] | | | + + + +--------+ + + + + | Result panel 330 | + + + + + +--------+ + + | | 2022-08-14 | [facility] | 90.1 | (missing) | (missing) | | (unavailable | 13:50:08 | [facility] | | | + + + +--------+ + + + + | Result panel 331 | + + + + + +--------+ + + | | 2022-08-14 | [facility] | 29.9 | (missing) | (missing) | | (unavailable | 13:50:08 | [facility] | | | + + + +--------+ + + + + | Result panel 332 | + + + + + +--------+ + + | | 2022-08-14 | [facility] | 33.2 | (missing) | (missing) | | (unavailable | 13:50:08 | [facility] | | | + + + +--------+ + + + + | Result panel 333 | + + + + + +--------+ + + | | 2022-08-14 | [facility] | 14.5 | (missing) | (missing) | | (unavailable | 13:50:08 | [facility] | | | + + + +--------+ + + + + | Result panel 334 | + + + + + +------+ + + | | 2022-08-14 | [facility] | 94 | (missing) | (missing) | | (unavailable | 13:50:08 | [facility] | | | + + + +------+ + + + + | Result panel 335 | + + + + + +--------+ + + | | 2022-08-14 | [facility] | 66.0 | (missing) | (missing) | | (unavailable | 13:50:08 | [facility] | | | + + + +--------+ + + + + | Result panel 336 | + + + + + +--------+ + + | | 2022-08-14 | [facility] | 13.9 | (missing) | (missing) | | (unavailable | 14:15:08 | [facility] | | | + + + +--------+ + + + + | Result panel 337 | + + + + + +--------+ + + | | 2022-08-14 | [facility] | 1.11 | (missing) | (missing) | | (unavailable | 14:15:08 | [facility] | | | + + + +--------+ + + + + | Result panel 338 | + + + + + +--------+ + + | | 2022-08-14 | [facility] | 28.0 | (missing) | (missing) | | (unavailable | 14:35:08 | [facility] | | | + + + +--------+ + + + + | Result panel 339 | + + + + + + + + + | | 2022-08-14 | [facility] | YELLOW | (missing) | (missing) | | (unavailable | 15:05:08 | [facility] | | | | + + + + + + + + + | Result panel 340 | + + + + + +---------+ + + | | 2022-08-14 | [facility] | CLEAR | (missing) | (missing) | | (unavailable | 15:05:08 | [facility] | | | + + + +---------+ + + + + | Result panel 341 | + + + + + + + + + | | 2022-08-14 | [facility] | NEGATIVE | (missing) | (missing) | | (unavailable | 15:05:08 | [facility] | | | | + + + + + + + + + | Result panel 342 | + + + + + + + + + | | 2022-08-14 | [facility] | NEGATIVE | (missing) | (missing) | | (unavailable | 15::08 | [facility] | | | | + + + + + + + + + | Result panel 343 | + + + + + +---------+ + + | | 2022-08-14 | [facility] | SMALL | (missing) | (missing) | | (unavailable | 15:05:08 | [facility] | | | + + + +---------+ + + + + | Result panel 344 | + + + + + +---------+ + + | | 2022-08-14 | [facility] | 1.015 | (missing) | (missing) | | (unavailable | 15:05:08 | [facility] | | | + + + +---------+ + + + + | Result panel 345 | + + + + + + + + + | | 2022-08-14 | [facility] | NEGATIVE | (missing) | (missing) | | (unavailable | 15:05:08 | [facility] | | | | + + + + + + + + + | Result panel 346 | + + + + + +-------+ + + | | 2022-08-14 | [facility] | 7.0 | (missing) | (missing) | | (unavailable | 15:05:08 | [facility] | | | | + + + +-------+ + + + + | Result panel 347 | + + + + + + + + + | | 2022-08-14 | [facility] | NEGATIVE | (missing) | (missing) | | (unavailable | 15:05:08 | [facility] | | | + + + + + + + + + | Result panel 348 | + + + + + +-------+ + + | | 2022-08-14 | [facility] | 1.0 | (missing) | (missing) | | (unavailable | 15:05:08 | [facility] | | | + + + +-------+ + + + + | Result panel 349 | + + + + + + + + + | | 2022-08-14 | [facility] | NEGATIVE | (missing) | (missing) | | (unavailable | 15:05:08 | [facility] | | | | + + + + + + + + + | Result panel 350 | + + + + + + + + + | | 2022-08-14 | [facility] | NEGATIVE | (missing) | (missing) | | (unavailable | 15:05:08 | [facility] | | | | + + + + + + + + + | Result panel 351 | + + + + + + + + + | | 2022-12-16 | [facility] | SEE COMMENT | (missing) | (missing) | | (unavailable | 17::07 | [facility] | | | | + + + + + + + + + | Result panel 352 | + + + + + +--------+ + + | | 2022-12-16 | [facility] | 62.9 | (missing) | (missing) | | (unavailable | 17::07 | [facility] | | | + + + +--------+ + + + + | Result panel 353 | + + + + + +--------+ + + | | 2022-12-16 | [facility] | 25.0 | (missing) | (missing) | | (unavailable | 17:06:07 | [facility] | | | + + + +--------+ + + + + | Result panel 354 | + + + + + +-------+ + + | | 2022-12-16 | [facility] | 7.9 | (missing) | (missing) | | (unavailable | 17:06:07 | [facility] | | | + + + +-------+ + + + + | Result panel 355 | + + + + + +-------+ + + | | 2022-12-16 | [facility] | 3.4 | (missing) | (missing) | | (unavailable | 17:06:07 | [facility] | | | | + + + +-------+ + + + + | Result panel 356 | + + + + + +-------+ + + | | 2022-12-16 | [facility] | 3.4 | (missing) | (missing) | | (unavailable | 17:06:07 | [facility] | | | | + + + +-------+ + + + + | Result panel 357 | + + + + + + + + + | | 2022-12-16 | [facility] | SEE COMMENT | (missing) | (missing) | | (unavailable | 17:06:07 [facility] | | | + + + + + + + + + | Result panel 358 | + + + + + +--------+ + + | | 2022-12-16 | [facility] | 4.80 | (missing) | (missing) | | (unavailable | 17:06:07 [facility] | | | | + + + +--------+ + + + + | Result panel 359 | + + + + + +--------+ + + | | 2022-12-16 | [facility] | 14.6 | (missing) | (missing) | | (unavailable | 17:06:07 [facility] | | | + + + +--------+ + + + + | Result panel 360 | + + + + + +--------+ + + | | 2022-12-16 | [facility] | 43.8 | (missing) | (missing) | | (unavailable | 17:06:07 | [facility] | | | + + + +--------+ + + + + | Result panel 361 | + + + + + +--------+ + + | | 2022-12-16 | [facility] | 91.1 | (missing) | (missing) | | (unavailable | 17:06:07 | [facility] | | | + + + +--------+ + + + + | Result panel 362 | + + + + + +--------+ + + | | 2022-12-16 | [facility] | 30.5 | (missing) | (missing) | | (unavailable | 17:06:07 | [facility] | | | + + + +--------+ + + + + | Result panel 363 | + + + + + +--------+ + + | | 2022-12-16 | [facility] | 33.4 | (missing) | (missing) | | (unavailable | 17::07 | [facility] | | | | + + + +--------+ + + + + | Result panel 364 | + + + + + +--------+ + + | | 2022-12-16 | [facility] | 14.3 | (missing) | (missing) | | (unavailable | 17::07 | [facility] | | | | + + + +--------+ + + + + | Result panel 365 | + + + + + +------+ + + | | 2022-12-16 | [facility] | 52 | (missing) | (missing) | | (unavailable | 17::07 | [facility] | | | | + + + +------+ + + + + | Result panel 366 | + + + + + +--------+ + + | | 2022-12-16 | [facility] | 62.9 | (missing) | (missing) | | (unavailable | :: | [facility] | | | | + + + +--------+ + + + + | Result panel 367 | + + + + + +-------+ + + | | 2022-12-16 | [facility] | 0.8 | (missing) | (missing) | | (unavailable | 17::07 | [facility] | | | + + + +-------+ + + + + | Result panel 368 | + + + + + +--------+ + + | | 2022-12-16 | [facility] | 25.0 | (missing) | (missing) | | (unavailable | 17:06:07 [facility] | | | + + + +--------+ + + + + | Result panel 369 | + + + + + +-------+ + + | | 2022-12-16 | [facility] | 7.9 | (missing) | (missing) | | (unavailable | 17:06:07 [facility] | | | | + + + +-------+ + + + + | Result panel 370 | + + + + + +-------+ + + | | 2022-12-16 | [facility] | 3.4 | (missing) | (missing) | | (unavailable | 17:06:07 | [facility] | | | | + + + +-------+ + + + + | Result panel 371 | + + + + + +-------+ + + | | 2022-12-16 | [facility] | 0.8 | (missing) | (missing) | | (unavailable | 17:06:07 [facility] | | | + + + +-------+ + + + + | Result panel 372 | + + + + + +--------+ + + | | 2022-12-16 | [facility] | 14.5 | (missing) | (missing) | | (unavailable | 17::07 | [facility] | | | | + + + +--------+ + + + + | Result panel 373 | + + + + + +--------+ + + | | 2022-12-16 | [facility] | 1.17 | (missing) | (missing) | | (unavailable | 17::07 | [facility] | | | | + + + +--------+ + + + + | Result panel 374 | + + + + + +-------+---------+ + | | 2022-12-16 | [facility] | 179 | mg/dL | (missing) | | (unavailable | 17::07 | [facility] | | | | + + + +-------+---------+ + + + | Result panel 375 | + + + + + +-----+---------+ + | | 2022-12-16 | [facility] | 6 | mg/dL | (missing) | | (unavailable | 17:06:07 [facility] | | | | + + + +-----+---------+ + + + | Result panel 376 | + + + + + +--------+---------+ + | | 2022-12-16 | [facility] | 0.67 | mg/dL | (missing) | | (unavailable | 17:06:07 [facility] | | | | + + + +--------+---------+ + + + | Result panel 377 | + + + + + +-------+ + + | | 2022-12-16 | [facility] | 117 | (missing) | (missing) | | (unavailable | 17:06:07 | [facility] | | | | + + + +-------+ + + + + | Result panel 378 | + + + + + +--------+ + + | | 2022-12-16 | [facility] | 8.95 | (missing) | (missing) | | (unavailable | 17::07 | [facility] | | | | + + + +--------+ + + + + | Result panel 379 | + + + + + +-------+ + + | | 2022-12-16 | [facility] | 141 | (missing) | (missing) | | (unavailable | 17::07 | [facility] | | | | + + + +-------+ + + + + | Result panel 380 | + + + + + +-------+ + + | | 2022-12-16 | [facility] | 3.5 | (missing) | (missing) | | (unavailable | 17:06:07 [facility] | | | | + + + +-------+ + + + + | Result panel 381 | + + + + + +-------+ + + | | 2022-12-16 | [facility] | 102 | (missing) | (missing) | | (unavailable | 17:06:07 | [facility] | | | | + + + +-------+ + + + + | Result panel 382 | + + + + + +------+ + + | | 2022-12-16 | [facility] | 30 | (missing) | (missing) | | (unavailable | 17:06:07 [facility] | | | | + + + +------+ + + + + | Result panel 383 | + + + + + +--------+ + + | | 2022-12-16 | [facility] | 12.5 | (missing) | (missing) | | (unavailable | 17:06:07 [facility] | | | | + + + +--------+ + + + + | Result panel 384 | + + + + + +-------+---------+ + | | 2022-12-16 | [facility] | 8.5 | mg/dL | (missing) | | (unavailable | 17:06:07 [facility] | | | | + + + +-------+---------+ + + + | Result panel 385 | + + + + + +-------+ + + | | 2022-12-16 | [facility] | 7.4 | (missing) | (missing) | | (unavailable | 17:06:07 [facility] | | | | + + + +-------+ + + + + | Result panel 386 | + + + + + +-------+ + + | | 2022-12-16 | [facility] | 3.9 | (missing) | (missing) | | (unavailable | 17:06:07 [facility] | | | | + + + +-------+ + + + + | Result panel 387 | + + + + + +-------+ + + | | 2022-12-16 | [facility] | 3.5 | (missing) | (missing) | | (unavailable | 17:06:07 [facility] | | | | + + + +-------+ + + + + | Result panel 388 | + + + + + +--------+ + + | | 2022-12-16 | [facility] | 1.11 | (missing) | (missing) | | (unavailable | 17::07 | [facility] | | | | + + + +--------+ + + + + | Result panel 389 | + + + + + +-------+ + + | | 2022-12-16 | [facility] | 1.3 | (missing) | (missing) | | (unavailable | 17::07 | [facility] | | | | + + + +-------+ + + + + | Result panel 390 | + + + + + +------+ + + | | 2022-12-16 | [facility] | 22 | (missing) | (missing) | | (unavailable | 17:06:07 [facility] | | | | + + + +------+ + + + + | Result panel 391 | + + + + + +------+ + + | | 2022-12-16 | [facility] | 18 | (missing) | (missing) | | (unavailable | 17:06:07 [facility] | | | | + + + +------+ + + + + | Result panel 392 | + + + + + +-------+ + + | | 2022-12-16 | [facility] | 126 | (missing) | (missing) | | (unavailable | 17:06:07 [facility] | | | | + + + +-------+ + + + + | Result panel 393 | + + + + + +-----+ + + | | 2022-12-16 | [facility] | O | (missing) | (missing) | | (unavailable | 17:06:07 [facility] | | | | + + + +-----+ + + + + | Result panel 394 | + + + + + + + + + | | 2022-12-16 | [facility] | POSITIVE | (missing) | (missing) | | (unavailable | 17:06:07 [facility] | | | | + + + + + + + + + | Result panel 395 | + + + + + + + + + | | 2022-12-16 | [facility] | NEGATIVE | (missing) | (missing) | | (unavailable | 17:06:07 [facility] | | | | + + + + + + + + + | Result panel 396 | + + + + + + + + + | | 2022-12-16 | [facility] | BLOOD IN | (missing) | (missing) | | (unavailable | 17:06:07 [facility] | | | | + + + + + + + + + | Result panel 397 | + + + + + +--------+ + + | | 2022-12-19 | [facility] | 45.7 | (missing) | (missing) | | (unavailable | 04:15:07 | [facility] | | | | + + + +--------+ + + + + | Result panel 398 | + + + + + +--------+ + + | | 2022-12-19 | [facility] | 90.7 | (missing) | (missing) | | (unavailable | 04:15:07 | [facility] | | | | + + + +--------+ + + + + | Result panel 399 | + + + + + +--------+ + + | | 2022-12-19 | [facility] | 30.6 | (missing) | (missing) | | (unavailable | 04:15:07 [facility] | | | | + + + +--------+ + + + + | Result panel 400 | + + + + + +--------+ + + | | 2022-12-19 | [facility] | 33.7 | (missing) | (missing) | | (unavailable | 04:15:07 | [facility] | | | | + + + +--------+ + + + + | Result panel 401 | + + + + + +--------+ + + | | 2022-12-19 | [facility] | 14.0 | (missing) | (missing) | | (unavailable | 04:15:07 | [facility] | | | | + + + +--------+ + + + + | Result panel 402 | + + + + + +------+ + + | | 2022-12-19 | [facility] | 67 | (missing) | (missing) | | (unavailable | 04:15:07 | [facility] | | | | + + + +------+ + + + + | Result panel 403 | + + + + + +------+ + + | | 2022-12-19 | [facility] | 54 | (missing) | (missing) | | (unavailable | 04:15:07 | [facility] | | | | + + + +------+ + + + + | Result panel 404 | + + + + + +------+ + + | | 2022-12-19 | [facility] | 32 | (missing) | (missing) | | (unavailable | 04:15:07 | [facility] | | | | + + + +------+ + + + + | Result panel 405 | + + + + + +-----+ + + | | 2022-12-19 | [facility] | 9 | (missing) | (missing) | | (unavailable | 04:15:07 | [facility] | | | | + + + +-----+ + + + + | Result panel 406 | + + + + + +-----+ + + | | 2022-12-19 | [facility] | 1 | (missing) | (missing) | | (unavailable | 04:15:07 | [facility] | | | | + + + +-----+ + + + + | Result panel 407 | + + + + + +-----+ + + | | 2022-12-19 | [facility] | 2 | (missing) | (missing) | | (unavailable | 04:15:07 | [facility] | | | | + + + +-----+ + + + + | Result panel 408 | + + + + + +-----+ + + | | 2022-12-19 | [facility] | 2 | (missing) | (missing) | | (unavailable | 04:15:07 | [facility] | | | | + + + +-----+ + + + + | Result panel 409 | + + + + + +--------+ + + | | 2022-12-19 | [facility] | 14.5 | (missing) | (missing) | | (unavailable | 04:15:07 | [facility] | | | | + + + +--------+ + + + + | Result panel 410 | + + + + + +--------+ + + | | 2022-12-19 | [facility] | 1.19 | (missing) | (missing) | | (unavailable | 04:15:07 | [facility] | | | | + + + +--------+ + + + + | Result panel 411 | + + + + + +--------+ + + | | 2022-12-19 | [facility] | 30.2 | (missing) | (missing) | | (unavailable | 04:15:07 | [facility] | | | | + + + +--------+ + + + + | Result panel 412 | + + + + + +-------+---------+ + | | 2022-12-19 | [facility] | 168 | mg/dL | (missing) | | (unavailable | 04:15:07 | [facility] | | | | + + + +-------+---------+ + + + | Result panel 413 | + + + + + +-----+---------+ + | | 2022-12-19 | [facility] | 6 | mg/dL | (missing) | | (unavailable | 04:15:07 | [facility] | | | | + + + +-----+---------+ + + + | Result panel 414 | + + + + + +--------+---------+ + | | 2022-12-19 | [facility] | 0.79 | mg/dL | (missing) | | (unavailable | 04:15:07 | [facility] | | | | + + + +--------+---------+ + + + | Result panel 415 | + + + + + +-------+ + + | | 2022-12-19 | [facility] | 112 | (missing) | (missing) | | (unavailable | 04:15:07 | [facility] | | | | + + + +-------+ + + + + | Result panel 416 | + + + + + +--------+ + + | | 2022-12-19 | [facility] | 7.59 | (missing) | (missing) | | (unavailable | 04:15:07 | [facility] | | | | + + + +--------+ + + + + | Result panel 417 | + + + + + +-------+ + + | | 2022-12-19 | [facility] | 143 | (missing) | (missing) | | (unavailable | 04:15:07 | [facility] | | | | + + + +-------+ + + + + | Result panel 418 | + + + + + +-------+ + + | | 2022-12-19 | [facility] | 3.1 | (missing) | (missing) | | (unavailable | 04:15:07 | [facility] | | | | + + + +-------+ + + + + | Result panel 419 | + + + + + +-------+ + + | | 2022-12-19 | [facility] | 101 | (missing) | (missing) | | (unavailable | 04:15:07 | [facility] | | | | + + + +-------+ + + + + | Result panel 420 | + + + + + +------+ + + | | 2022-12-19 | [facility] | 32 | (missing) | (missing) | | (unavailable | 04:15:07 | [facility] | | | | + + + +------+ + + + + | Result panel 421 | + + + + + +--------+ + + | | 2022-12-19 | [facility] | 13.1 | (missing) | (missing) | | (unavailable | 04:15:07 | [facility] | | | | + + + +--------+ + + + + | Result panel 422 | + + + + + +-------+---------+ + | | 2022-12-19 | [facility] | 8.7 | mg/dL | (missing) | | (unavailable | [facility]07 [facility] | | | | + + + +-------+---------+ + + + | Result panel 423 | + + + + + +-------+ + + | | 2022-12-19 | [facility] | 7.7 | (missing) | (missing) | | (unavailable | [facility]15[facility]07 [facility] | | | | + + + +-------+ + + + + | Result panel 424 | + + + + + +-------+ + + | | 2022-12-19 | [facility] | 4.3 | (missing) | (missing) | | (unavailable | [facility]15[facility]07 [facility] | | | | + + + +-------+ + + + + | Result panel 425 | + + + + + +-------+ + + | | 2022-12-19 | [facility] | 3.4 | (missing) | (missing) | | (unavailable | [facility]15:07 [facility] | | | | + + + +-------+ + + + + | Result panel 426 | + + + + + +--------+ + + | | 2022-12-19 | [facility] | 1.26 | (missing) | (missing) | | (unavailable | [facility]15:07 [facility] | | | | + + + +--------+ + + + + | Result panel 427 | + + + + + +-------+ + + | | 2022-12-19 | [facility] | 1.7 | (missing) | (missing) | | (unavailable | [facility]15:07 [facility] | | | | + + + +-------+ + + + + | Result panel 428 | + + + + + +------+ + + | | 2022-12-19 | [facility] | 25 | (missing) | (missing) | | (unavailable | [facility]15:07 [facility] | | | | + + + +------+ + + + + | Result panel 429 | + + + + + +------+ + + | | 2022-12-19 | [facility] | 20 | (missing) | (missing) | | (unavailable | 04[facility]15:07 [facility] | | | | + + + +------+ + + + + | Result panel 430 | + + + + + +-------+ + + | | 2022-12-19 | [facility] | 121 | (missing) | (missing) | | (unavailable | 04[facility]15:07 [facility] | | | | + + + +-------+ + + + + | Result panel 431 | + + + + + +-------+ + + | | 2022-12-19 | [facility] | 3.1 | (missing) | (missing) | | (unavailable | [facility]15:07 [facility] | | | | + + + +-------+ + + + + | Result panel 432 | + + + + + +-----+ + + | | 2022-12-19 | [facility] | O | (missing) | (missing) | | (unavailable | 04[facility]15:07 [facility] | | | | + + + +-----+ + + + + | Result panel 433 | + + + + + + + + + | | 2022-12-19 | [facility] | POSITIVE | (missing) | (missing) | | (unavailable | [facility]15:07 [facility] | | | | + + + + + + + + + | Result panel 434 | + + + + + + + + + | | 2022-12-19 | [facility] | NEGATIVE | (missing) | (missing) | | (unavailable | [facility]15:07 [facility] | | | | + + + + + + + + + | Result panel 435 | + + + + + + + + + | | 2022-12-19 | [facility] | BLOOD IN | (missing) | (missing) | | (unavailable | 04:15:07 | [facility] | | Hospital | | | | + + + + + + + + + | Result panel 436 | + + + + + +-------+ + + | | 2022-12-19 | [facility] | 5.4 | (missing) | (missing) | | (unavailable | 04[facility]15:07 [facility] | | | | + + + +-------+ + + + + | Result panel 437 | + + + + + +--------+ + + | | 2022-12-19 | [facility] | 5.03 | (missing) | (missing) | | (unavailable | 04[facility]15:07 [facility] | | | | + + + +--------+ + + + + | Result panel 438 | + + + + + +--------+ + + | | 2022-12-19 | [facility] | 15.4 | (missing) | (missing) | | (unavailable | [facility]15:07 [facility] | | | | + + + +--------+ + + Social History No information. Vital Signs + + + +---------+ | date | measurement | value | units | + + + +---------+ | 2021-10-09 00:00 | BMI | 27.2 | kg/m2 | + + + +---------+ | 2021-10-09 00:00 | BP_diastolic | 96 | mmHg | + + + +---------+ | 2021-10-09 00:00 | BP_systolic | 150 | mmHg | + + + +---------+ | 2021-10-09 00:00 | heart_rate | 84 | /min | + + + +---------+ | 2021-10-09 00:00 | height_metric | 182.88 | cm | + + + +---------+ | 2021-10-09 00:00 | height_standard | 72 | in | + + + +---------+ | 2021-10-09 00:00 | o2_saturation | 99 | % | + + + +---------+ | 2021-10-09 00:00 | respiration_rate | 16 | /min | + + + +---------+ | 2021-10-09 00:00 | temperature_metric | 37 | C | | | | | | + + + +---------+ | 2021-10-09 00:00 | | 98.6 | F | | | temperature_standar | | | | | d | | | + + + +---------+ | 2021-10-09 00:00 | weight_metric | 90.97 | kg | + + + +---------+ | 2021-10-09 00:00 | weight_standard | 200.55 | lb | + + + +---------+ | 2021-10-09 00:00 | weight_standard | 200.56 | lb | + + + +---------+ | 2021-10-11 00:00 | BMI | 27.2 | kg/m2 | + + + +---------+ | 2021-10-11 00:00 | BP_diastolic | 85 | mmHg | + + + +---------+ | 2021-10-11 00:00 | BP_systolic | 117 | mmHg | + + + +---------+ | 2021-10-11 00:00 | heart_rate | 84 | /min | + + + +---------+ | 2021-10-11 00:00 | height_metric | 182.88 | cm | + + + +---------+ | 2021-10-11 00:00 | height_standard | 72 | in | + + + +---------+ | 2021-10-11 00:00 | o2_saturation | 97 | % | + + + +---------+ | 2021-10-11 00:00 | respiration_rate | 16 | /min | + + + +---------+ | 2021-10-11 00:00 | temperature_metric | 36.78 | C | | | | | | + + + +---------+ | 2021-10-11 00:00 | | 98.2 | F | | | temperature_standar | | | | | d | | | + + + +---------+ | 2021-10-11 00:00 | weight_metric | 90.97 | kg | + + + +---------+ | 2021-10-11 00:00 | weight_standard | 200.55 | lb | + + + +---------+ | 2021-10-11 00:00 | weight_standard | 200.56 | lb | + + + +---------+ | 2021-10-28 00:00 | BMI | 27.9 | kg/m2 | + + + +---------+ | 2021-10-28 00:00 | height_metric | 182.88 | cm | + + + +---------+ | 2021-10-28 00:00 | height_standard | 72 | in | + + + +---------+ | 2021-10-28 00:00 | weight_metric | 93.2 | kg | + + + +---------+ | 2021-10-28 00:00 | weight_standard | 205.47 | lb | + + + +---------+ | 2021-10-29 00:00 | BP_diastolic | 78 | mmHg | + + + +---------+ | 2021-10-29 00:00 | BP_systolic | 124 | mmHg | + + + +---------+ | 2021-10-29 00:00 | heart_rate | 73 | /min | + + + +---------+ | 2021-10-29 00:00 | o2_saturation | 96 | % | + + + +---------+ | 2021-10-29 00:00 | respiration_rate | 18 | /min | + + + +---------+ | 2021-10-29 00:00 | temperature_metric | 36.56 | C | | | | | | + + + +---------+ | 2021-10-29 00:00 | | 97.8 | F | | | temperature_standar | | | | | d | | | + + + +---------+ | 2021-11-02 00:00 | BMI | 27.9 | kg/m2 | + + + +---------+ | 2021-11-02 00:00 | BP_diastolic | 92 | mmHg | + + + +---------+ | 2021-11-02 00:00 | BP_systolic | 134 | mmHg | + + + +---------+ | 2021-11-02 00:00 | heart_rate | 124 | /min | + + + +---------+ | 2021-11-02 00:00 | height_metric | 182.88 | cm | + + + +---------+ | 2021-11-02 00:00 | height_standard | 72 | in | + + + +---------+ | 2021-11-02 00:00 | o2_saturation | 97 | % | + + + +---------+ | 2021-11-02 00:00 | respiration_rate | 21 | /min | + + + +---------+ | 2021-11-02 00:00 | temperature_metric | 37.39 | C | | | | | | + + + +---------+ | 2021-11-02 00:00 | | 99.3 | F | | | temperature_standar | | | | | d | | | + + + +---------+ | 2021-11-02 00:00 | weight_metric | 93.16 | kg | + + + +---------+ | 2021-11-02 00:00 | weight_standard | 205.38 | lb | + + + +---------+ | 2022-01-11 00:00 | BMI | 30.2 | kg/m2 | + + + +---------+ | 2022-01-11 00:00 | BP_diastolic | 69 | mmHg | + + + +---------+ | 2022-01-11 00:00 | BP_systolic | 118 | mmHg | + + + +---------+ | 2022-01-11 00:00 | heart_rate | 84 | /min | + + + +---------+ | 2022-01-11 00:00 | height_metric | 182.88 | cm | + + + +---------+ | 2022-01-11 00:00 | height_standard | 72 | in | + + + +---------+ | 2022-01-11 00:00 | o2_saturation | 96 | % | + + + +---------+ | 2022-01-11 00:00 | respiration_rate | 12 | /min | + + + +---------+ | 2022-01-11 00:00 | temperature_metric | 36.67 | C | | | | | | + + + +---------+ | 2022-01-11 00:00 | | 98 | F | | | temperature_standar | | | | | d | | | + + + +---------+ | 2022-01-11 00:00 | weight_metric | 101 | kg | + + + +---------+ | 2022-01-11 00:00 | weight_standard | 222.67 | lb | + + + +---------+ | 2022-01-20 00:00 | BMI | 27.5 | kg/m2 | + + + +---------+ | 2022-01-20 00:00 | BMI | 30.1 | kg/m2 | + + + +---------+ | 2022-01-20 00:00 | BP_diastolic | 92 | mmHg | + + + +---------+ | 2022-01-20 00:00 | BP_systolic | 106 | mmHg | + + + +---------+ | 2022-01-20 00:00 | heart_rate | 58 | /min | + + + +---------+ | 2022-01-20 00:00 | height_metric | 182.88 | cm | + + + +---------+ | 2022-01-20 00:00 | height_standard | 72 | in | + + + +---------+ | 2022-01-20 00:00 | o2_saturation | 95 | % | + + + +---------+ | 2022-01-20 00:00 | respiration_rate | 14 | /min | + + + +---------+ | 2022-01-20 00:00 | temperature_metric | 36.78 | C | | | | | | + + + +---------+ | 2022-01-20 00:00 | | 98.2 | F | | | temperature_standar | | | | | d | | | + + + +---------+ | 2022-01-20 00:00 | weight_metric | 100.7 | kg | + + + +---------+ | 2022-01-20 00:00 | weight_metric | 92 | kg | + + + +---------+ | 2022-01-20 00:00 | weight_standard | 202.83 | lb | + + + +---------+ | 2022-01-20 00:00 | weight_standard | 222 | lb | + + + +---------+ | 2022-01-20 00:00 | weight_standard | 222.01 | lb | + + + +---------+ | 2022-01-21 00:00 | BP_diastolic | 81 | mmHg | + + + +---------+ | 2022-01-21 00:00 | BP_systolic | 119 | mmHg | + + + +---------+ | 2022-01-21 00:00 | heart_rate | 66 | /min | + + + +---------+ | 2022-01-21 00:00 | o2_saturation | 97 | % | + + + +---------+ | 2022-01-21 00:00 | respiration_rate | 18 | /min | + + + +---------+ | 2022-01-21 00:00 | temperature_metric | 36.44 | C | | | | | | + + + +---------+ | 2022-01-21 00:00 | | 97.6 | F | | | temperature_standar | | | | | d | | | + + + +---------+ | 2022-01-27 00:00 | BMI | 27.1 | kg/m2 | + + + +---------+ | 2022-01-27 00:00 | BP_diastolic | 64 | mmHg | + + + +---------+ | 2022-01-27 00:00 | BP_systolic | 110 | mmHg | + + + +---------+ | 2022-01-27 00:00 | heart_rate | 59 | /min | + + + +---------+ | 2022-01-27 00:00 | height_metric | 182.88 | cm | + + + +---------+ | 2022-01-27 00:00 | height_standard | 72 | in | + + + +---------+ | 2022-01-27 00:00 | o2_saturation | 95 | % | + + + +---------+ | 2022-01-27 00:00 | respiration_rate | 18 | /min | + + + +---------+ | 2022-01-27 00:00 | temperature_metric | 36.67 | C | | | | | | + + + +---------+ | 2022-01-27 00:00 | | 98 | F | | | temperature_standar | | | | | d | | | + + + +---------+ | 2022-01-27 00:00 | weight_metric | 90.72 | kg | + + + +---------+ | 2022-01-27 00:00 | weight_standard | 200 | lb | + + + +---------+ | 2022-03-16 00:00 | BMI | 28.1 | kg/m2 | + + + +---------+ | 2022-03-16 00:00 | BP_diastolic | 71 | mmHg | + + + +---------+ | 2022-03-16 00:00 | BP_systolic | 101 | mmHg | + + + +---------+ | 2022-03-16 00:00 | heart_rate | 68 | /min | + + + +---------+ | 2022-03-16 00:00 | height_metric | 182.88 | cm | + + + +---------+ | 2022-03-16 00:00 | height_standard | 72 | in | + + + +---------+ | 2022-03-16 00:00 | o2_saturation | 94 | % | + + + +---------+ | 2022-03-16 00:00 | respiration_rate | 14 | /min | + + + +---------+ | 2022-03-16 00:00 | temperature_metric | 37.28 | C | | | | | | + + + +---------+ | 2022-03-16 00:00 | | 99.1 | F | | | temperature_standar | | | | | d | | | + + + +---------+ | 2022-03-16 00:00 | weight_metric | 94 | kg | + + + +---------+ | 2022-03-16 00:00 | weight_standard | 207.23 | lb | + + + +---------+ | 2022-03-16 00:00 | weight_standard | 207.24 | lb | + + + +---------+ | 2022-08-14 00:00 | BMI | 28.1 | kg/m2 | + + + +---------+ | 2022-08-14 00:00 | BP_diastolic | 94 | mmHg | + + + +---------+ | 2022-08-14 00:00 | BP_systolic | 164 | mmHg | + + + +---------+ | 2022-08-14 00:00 | heart_rate | 56 | /min | + + + +---------+ | 2022-08-14 00:00 | height_metric | 182.88 | cm | + + + +---------+ | 2022-08-14 00:00 | height_standard | 72 | in | + + + +---------+ | 2022-08-14 00:00 | o2_saturation | 99 | % | + + + +---------+ | 2022-08-14 00:00 | respiration_rate | 16 | /min | + + + +---------+ | 2022-08-14 00:00 | temperature_metric | 36.67 | C | | | | | | + + + +---------+ | 2022-08-14 00:00 | | 98 | F | | | temperature_standar | | | | | d | | | + + + +---------+ | 2022-08-14 00:00 | weight_metric | 93.98 | kg | + + + +---------+ | 2022-08-14 00:00 | weight_standard | 207.19 | lb | + + + +---------+ | 2022-12-16 00:00 | BMI | 28.1 | kg/m2 | + + + +---------+ | 2022-12-16 00:00 | BP_diastolic | 83 | mmHg | + + + +---------+ | 2022-12-16 00:00 | BP_systolic | 108 | mmHg | + + + +---------+ | 2022-12-16 00:00 | heart_rate | 72 | /min | + + + +---------+ | 2022-12-16 00:00 | height_metric | 182.88 | cm | + + + +---------+ | 2022-12-16 00:00 | height_standard | 72 | in | + + + +---------+ | 2022-12-16 00:00 | o2_saturation | 95 | % | + + + +---------+ | 2022-12-16 00:00 | respiration_rate | 14 | /min | + + + +---------+ | 2022-12-16 00:00 | temperature_metric | 36.5 | C | | | | | | + + + +---------+ | 2022-12-16 00:00 | | 97.7 | F | | | temperature_standar | | | | | d | | | + + + +---------+ | 2022-12-16 00:00 | weight_metric | 93.98 | kg | + + + +---------+ | 2022-12-16 00:00 | weight_standard | 207.19 | lb | + + + +---------+ | 2022-12-19 00:00 | BMI | 28.1 | kg/m2 | + + + +---------+ | 2022-12-19 00:00 | BP_diastolic | 75 | mmHg | + + + +---------+ | 2022-12-19 00:00 | BP_systolic | 129 | mmHg | + + + +---------+ | 2022-12-19 00:00 | heart_rate | 75 | /min | + + + +---------+ | 2022-12-19 00:00 | height_metric | 182.88 | cm | + + + +---------+ | 2022-12-19 00:00 | height_standard | 72 | in | + + + +---------+ | 2022-12-19 00:00 | o2_saturation | 94 | % | + + + +---------+ | 2022-12-19 00:00 | respiration_rate | 18 | /min | + + + +---------+ | 2022-12-19 00:00 | temperature_metric | 37.06 | C | | | | | | + + + +---------+ | 2022-12-19 00:00 | | 98.7 | F | | | temperature_standar | | | | | d | | | + + + +---------+ | 2022-12-19 00:00 | weight_metric | 93.98 | kg | + + + +---------+ | 2022-12-19 00:00 | weight_standard | 207.19 | lb | + + + +---------+"
[~2023-01-22 09:04] MED LIST changes: +PROMETHAZINE HC25 M1 PO
--- OUTSIDE RECORDS SUMMARY | 2023-01-22 09:08 | XMS ---
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 RAI Security Planer Stone Events No recent Security Events currently on file CRITERIA MET - [facility] CARE PROVIDERS -, [place]- Dentist: Licensed Practical Nurse Instructor [facility] PHONE: [phone] -[place]- Dentist: Licensed Practical Nurse Instructor [facility] PHONE: [phone] ZACKERY SORTO Nurse Practitioner: 10/14/2021-Current PHONE: [phone] DALY SILVA [facility] Current PHONE: Unknown Tamica Westbrook Client Support Consultant/Child Welfare Consultant 01/16/2023-Current PHONE: [phone] Matty has no Care Guidelines for this patient. Sina VISIT COUNT (12 MO.) [address] [facility] TOTAL 6 NOTE: Visits indicate total known visits. ED/UCC VISIT TRACKING (12 MO.) 01/22/2023 09:05 [facility] [place] TYPE: Emergency COMPLAINT: - N/V, DIZZY, ABD PAIN 12/19/2022 04:04 [facility] [place] TYPE: Emergency COMPLAINT: - VOMITING BLOOD DIAGNOSES: - Hematemesis - lobsterman (current) use of insulin - Nicotine dependence, unspecified, uncomplicated - Other halfway (current) 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 - Type 2 diabetes mellitus without complications 12/16/2022 16:14 [facility] [place] TYPE: Emergency COMPLAINT: - VOMITING W/ BLOOD DIAGNOSES: - Alcoholic cirrhosis of liver without ascites - Hematemesis - senior care (current) use of insulin - Nicotine dependence, unspecified, uncomplicated - Other halfway (current) 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 - Other specified postprocedural states - Type 2 diabetes mellitus without complications 08/14/2022 13:21 [facility] [place] TYPE: Emergency COMPLAINT: - VOMITING, ABD PAIN DIAGNOSES: - Gastroparesis - lobsterman (current) use of insulin - Nicotine dependence, unspecified, uncomplicated - Other halfway (current) 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 - Type 2 diabetes mellitus with diabetic autonomic (poly)neuropathy - Unspecified cirrhosis of liver - Vomiting, unspecified [facility]22 06[facility] COMPLAINT: - VOMITING DIAGNOSES: - COVID-19 - Gastritis, unspecified, without bleeding - lobsterman (current) use of insulin - Nicotine dependence, unspecified, uncomplicated - Other halfway (current) 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 - Right upper quadrant pain - Type 2 diabetes mellitus without complications 01/27/2022 04:14 [facility] [place] [facility] COMPLAINT: - VOMITING BLOOD DIAGNOSES: - Acute gastritis with bleeding - Alcoholic cirrhosis of liver without ascites - Contact with and (suspected) exposure to COVID-19 - Esophageal varices without bleeding - Hematemesis - lobsterman (current) use of insulin - Nicotine dependence, unspecified, uncomplicated - Other halfway (current) 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 - Secondary esophageal varices without bleeding - Type 2 diabetes mellitus without complications INPATIENT VISIT TRACKING (12 MO.) 12/16/2022 22:11 Catherine [facility]ew[facility] [place] TYPE: Medical Surgical COMPLAINT: - GI BLEED DIAGNOSES: 0. Alcoholic cirrhosis of liver without ascites 1. Alcoholic cirrhosis of liver without ascites 2. Secondary esophageal varices with bleeding 3. Portal hypertension 4. Other diseases of stomach and duodenum 5. Type 2 diabetes mellitus with hyperglycemia 6. Bipolar disorder, unspecified 7. Alcohol abuse, in remission 8. Other constipation 9. Nicotine dependence, cigarettes, uncomplicated 10. Essential (primary) hypertension 11. senior care (current) use of insulin 12. senior care (current) use of oral hypoglycemic drugs 13. lobsterman (current) use of opiate analgesic 14. Other lobsterman (current) 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 15. Family history of stroke [id number]
[2023-01-22] MEDS ORDERED: ONDANSETRON ODT8 MG PO (12:53)
[2023-01-22] MEDS ORDERED: REGLAN10 MG PO (12:53)
[2023-01-22 13:02] VITALS: BP 125/94
== END 2023-01-22 13:00 | disposition home or self-care (01) ==
LOC: ED 09:04
DX: E11.43 Type 2 diabetes mellitus with diabetic autonomic (poly)neuropathy (principal); K31.84 Gastroparesis; F17.200 Nicotine dependence, unspecified, uncomplicated; Z79.899 Other long term (current) 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
CPT/HCPCS: 36415; 76705; 80053; 81003; 82140; 83690; 85025; J1170; J1790; J2405; J2765; J7030

== ENCOUNTER 2023-03-25 20:39 | Emergency (ER) | payer OTHER ==
[~2023-03-25] VITALS: Ht 182.9 cm; Wt 90.7 kg
[~2023-03-25 20:39] MED LIST changes: +REGLAN10 MG PO
--- OUTSIDE RECORDS SUMMARY | 2023-03-25 20:42 | XMS ---
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 RAI Security Cotton Stomper Events No recent Security Events currently on file CRITERIA MET - PREMAP CARE PROVIDERS Tamica Westbrook School Bus Driver/Mechanic/Moving Consultant 03/13/2023-Current PHONE: [phone] ZACKERY SORTO Nurse Practitioner: 10/14/2021-Current PHONE: [phone] -[place]- Dentist: [facility] PHONE: [phone] -[place]- Dentist: [facility] PHONE: [phone] DALY SILVA [facility] Current PHONE: Unknown Matty has no Care Guidelines for this patient. Sina VISIT COUNT (12 MO.) [address] [facility] [place] TOTAL 5 NOTE: Visits indicate total known visits. ED/UCC VISIT TRACKING (12 MO.) 03/25/2023 20:40 [facility] [place] TYPE: Emergency COMPLAINT: - VOMITING 01/22/2023 09:05 [facility] [place] TYPE: Emergency COMPLAINT: - N/V, DIZZY, ABD PAIN DIAGNOSES: - Gastroparesis - Nicotine dependence, unspecified, uncomplicated - Other fpc (current) 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 - Right upper quadrant pain - Type 2 diabetes mellitus with diabetic autonomic (poly)neuropathy 12/19/2022 04:04 [facility] [place] TYPE: Emergency COMPLAINT: - VOMITING BLOOD DIAGNOSES: - Hematemesis - intermodal truck driver (current) use of insulin - Nicotine dependence, unspecified, uncomplicated - Other emt intermediate (current) 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 - Type 2 diabetes mellitus without complications 12/16/2022 16:14 [facility] [place] TYPE: Emergency COMPLAINT: - VOMITING W/ BLOOD DIAGNOSES: - Alcoholic cirrhosis of liver without ascites - Hematemesis - alf (current) use of insulin - Nicotine dependence, unspecified, uncomplicated - Other emt intermediate (current) 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 - Other specified postprocedural states - Type 2 diabetes mellitus without complications 08/14/2022 13:21 [facility] TYPE: Emergency COMPLAINT: - VOMITING, ABD PAIN DIAGNOSES: - Gastroparesis - intermodal truck driver (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 Essential (primary) hypertension 11. 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 alf (current) use of oral hypoglycemic drugs 13. alf (current) use of opiate analgesic 14. Other fpc (current) 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 15. Family history of stroke [email or web address]
[2023-03-25] MEDS ORDERED: NADOLOL40 MG PO (20:49)
[2023-03-25] MEDS ORDERED: FUROSEMIDE20 MG PO (20:49)
[2023-03-25] MEDS ORDERED: BISACODYL5 MG PO (20:49)
[2023-03-25 20:54] LABS: BASOPHILS 0.6 % (0-2); EOSINOPHILS 2.4 % (0-6); HEMATOCRIT 42.2 % (35.0-50.0); HEMOGLOBIN 14.3 g/dL (12.0-18.0); LYMPHOCYTES 20.6 % (24-44); MCH 31.3 (27-36); MCHC 33.8 g/dl (30-36); MCV 92.7 fl (81-99); MONOCYTES 7.3 % (0-12); NEUTROPHILS 69.1 % (39-80); PLATELET COUNT 82 K/uL (140-440); RBC 4.55 M/ul (4.3-5.7); RDW 14.7 (10.5-15.0)
[2023-03-25 21:04] LABS: INR 1.13 (0.80-1.30); PROTIME 14.1 Sec (11.2-14.2)
[2023-03-25 21:06] LABS: PARTIAL THROMBOPLASTIN TIME 25.7 Sec (22.9-41.3)
[2023-03-25 21:09] LABS: ALBUMIN 3.2 g/dL (3.4-5.0); ANION GAP 12.3 (7-21); BILIRUBIN, TOTAL 0.8 ng/dL (0.2-1.0); BUN/CREATININE RATIO 12.22 (6.0-28.6); CALCIUM 8.6 mg/dL (8.5-10.1); CREATININE, SERUM 0.9 mg/dL (0.70-1.30); POTASSIUM 4.3 mmol/L (3.5-5.1); PROTEIN, TOTAL 6.4 g/dL (6.4-8.2)
[2023-03-25 21:30] LABS: ABO O; ANTIBODY SCREEN NEGATIVE; RH POSITIVE
[2023-03-25 22:08] LABS: INFLUENZA B NAA NEGATIVE (NEGATIVE); RESPIRATORY SYNCYTIAL VIR NAA NEGATIVE (NEGATIVE)
[2023-03-25 22:22] LABS: IS CROSSMATCH COMPATIBLE
[2023-03-25 22:34] LABS: BASOPHILS 0.6 % (0-2); EOSINOPHILS 2.1 % (0-6); HEMATOCRIT 35.7 % (35.0-50.0); HEMOGLOBIN 12.2 g/dL (12.0-18.0); LYMPHOCYTES 11.6 % (24-44); MCH 31.1 (27-36); MCHC 34.2 g/dl (30-36); MCV 91.2 fl (81-99); MONOCYTES 9.6 % (0-12); NEUTROPHILS 76.1 % (39-80); PH, VENOUS 7.419 (7.31-7.41); PLATELET COUNT 63 K/uL (140-440); RBC 3.91 M/ul (4.3-5.7); RDW 14.7 (10.5-15.0)
[2023-03-26 00:09] VITALS: BP 106/79
--- NOTE | 2023-03-27 05:47 | EKG ---
[facility] [address] [address] [facility] [place], [place] [address] Signed Normal sinus rhythm Normal ECG When compared with ECG of 19-DEC-2022 04:31, No significant change was found Confirmed by KATEY CLIFTON MD ([id number]) on 03/27/2023 5:46:49 AM Electronically Signed By: KATEY CLIFTON 03/27/23 0546 PATIENT NAME: VLADIMIR RAIMissael HOWARD Electrocardiogram DATE OF : 79 PHYSICIAN: KATEY CLIFTON REPORT #: [id number] REPORT IS CONFIDENTIAL AND NOT TO BE RELEASED WITHOUT AUTHORIZATION
== END 2023-03-26 00:02 | disposition short-term general hospital (02) ==
LOC: ED 20:39
PROVIDERS: Family Medicine
PROC: 30233N1 Transfusion of Nonautologous Red Blood Cells into Peripheral Vein, Percutaneous Approach (ICD-10-PCS; principal; 2023-03-25)
DX: K74.60 Unspecified cirrhosis of liver (principal); I85.11 Secondary esophageal varices with bleeding; F10.11 Alcohol abuse, in remission; F17.200 Nicotine dependence, unspecified, uncomplicated; E11.65 Type 2 diabetes mellitus with hyperglycemia; Z20.822 Contact with and (suspected) exposure to COVID-19; Z79.899 Other long term (current) 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; Z79.4 Long term (current) use of insulin
CPT/HCPCS: 36415; 36430; 80053; 82010; 82803; 85025; 85610; 85730; 86850; 86900; 86901; 86922; 87502; 93005; 93010; 96374; 96375; 96376; 99285-25; C9113; C9803; J0696; J0780; J1790; J1815; J2270; J2354-JA; J3010; J7060; J7121; P9016; U0002

== ENCOUNTER 2023-06-26 00:20 | Emergency (ER) | payer OTHER ==
[~2023-06-26] VITALS: Ht 182.9 cm; Wt 93.2 kg
[~2023-06-26 00:20] MED LIST changes: +BISACODYL5 MG PO; +FUROSEMIDE20 MG PO; +NADOLOL40 MG PO
[2023-06-26] MEDS ORDERED: LITHIUM CARBON300 M1 PO (03:16)
[2023-06-26] MEDS ORDERED: LAMOTRIGINE100 MG PO (03:16)
[2023-06-26] MEDS ORDERED: AMOX TR-K CLV1 EAC1 PO (04:43)
[2023-06-26 05:07] VITALS: BP 139/87
== END 2023-06-26 05:08 | disposition home or self-care (01) ==
LOC: ED 00:20
DX: K04.7 Periapical abscess without sinus (principal); K05.10 Chronic gingivitis, plaque induced; E11.9 Type 2 diabetes mellitus without complications; F17.200 Nicotine dependence, unspecified, uncomplicated; Z79.899 Other long term (current) 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; Z79.4 Long term (current) use of insulin
CPT/HCPCS: 64400; 99282-25

== ENCOUNTER 2023-08-09 13:47 | Emergency (ER) | payer OTHER ==
[~2023-08-09] VITALS: Ht 182.9 cm; Wt 97.7 kg
[~2023-08-09 13:47] MED LIST changes: +AMOX TR-K CLV1 EAC1 PO; +LAMOTRIGINE100 MG PO; +LITHIUM CARBON300 M1 PO
--- OUTSIDE RECORDS SUMMARY | 2023-08-09 13:50 | XMS ---
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 RAI Security Java Technical Manager Events No recent Security Events currently on file CRITERIA MET - PREMAP CARE PROVIDERS Tamica Westbrook Tool Hardener/Assistant Purchasing Manager 04/12/2023-Current PHONE: [phone] ZACKERY SORTO Nurse Practitioner: 10/14/2021-Current PHONE: [phone] -[place]- Dentist: Spinner Hand [facility] PHONE: [phone] -[place]- Dentist: Spinner Hand [facility] PHONE: [phone] SHAKILA [facility] Current CARE SYSTEM [facility]erald[facility] PHONE: [phone] DALY SILVA [facility] Current PHONE: Unknown Matty has no Care Guidelines for this patient. Sina VISIT COUNT (12 MO.) [address] [facility] [place] TOTAL 7 NOTE: Visits indicate total known visits. ED/UCC VISIT TRACKING (12 MO.) 08/09/2023 13:48 [facility] TYPE: Emergency COMPLAINT: - MOUTH PAIN 06/26/2023 00:20 [facility] TYPE: Emergency COMPLAINT: - DENTAL PAIN DIAGNOSES: - Chronic gingivitis, plaque induced - terminal computer operator (current) use of insulin - Nicotine dependence, unspecified, uncomplicated - Other terminal clerk (current) 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 - Other specified disorders of teeth and supporting structures - Periapical abscess without sinus - Type 2 diabetes mellitus without complications 03/25/2023 20:40 [facility] TYPE: Emergency COMPLAINT: - VOMITING DIAGNOSES: - Alcohol abuse, in remission - Contact with and (suspected) exposure to COVID-19 - Hematemesis - longterm (current) use of insulin - Nicotine dependence, unspecified, uncomplicated - Other terminal clerk (current) 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 - Secondary esophageal varices with bleeding - Type 2 diabetes mellitus with hyperglycemia - Type 2 diabetes mellitus without complications - Unspecified cirrhosis of liver 01/22/2023 09:05 [facility] TYPE: Emergency COMPLAINT: - N/V, DIZZY, ABD PAIN DIAGNOSES: - Gastroparesis - Nicotine dependence, unspecified, uncomplicated - Other jail (current) 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 - Right upper quadrant pain - Type 2 diabetes mellitus with diabetic autonomic (poly)neuropathy 12/19/2022 04:04 [facility] TYPE: Emergency COMPLAINT: - VOMITING BLOOD DIAGNOSES: - Hematemesis - longterm (current) use of insulin - Nicotine dependence, unspecified, uncomplicated - Other jail (current) 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 - Type 2 diabetes mellitus without complications 12/16/2022 16:14 [facility] TYPE: Emergency COMPLAINT: - VOMITING W/ BLOOD DIAGNOSES: - Alcoholic cirrhosis of liver without ascites - Hematemesis - longterm (current) use of insulin - Nicotine dependence, unspecified, uncomplicated - Other jail (current) 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 - Other specified postprocedural states - Type 2 diabetes mellitus without complications 08/14/2022 13:21 [facility] TYPE: Emergency COMPLAINT: - VOMITING, ABD PAIN DIAGNOSES: - Gastroparesis - terminal computer operator (current) use of insulin - Nicotine dependence, unspecified, uncomplicated - Other terminal clerk (current) 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 - Type 2 diabetes mellitus with diabetic autonomic (poly)neuropathy - Unspecified cirrhosis of liver - Vomiting, unspecified INPATIENT VISIT TRACKING (12 MO.) 03/26/2023 02:30 [facility] TYPE: General Medicine DIAGNOSES: - Alcoholic cirrhosis of liver without ascites - Gastrointestinal hemorrhage, unspecified - Thrombocytopenia, unspecified - Bleeding esophageal varices 12/16/2022 22:11 Catherine Pamai [facility] TYPE: Medical Surgical COMPLAINT: - GI [...] cigarettes, uncomplicated 10. Essential (primary) hypertension 11. terminal computer operator (current) use of insulin 12. terminal computer operator (current) use of oral hypoglycemic drugs 13. longterm (current) use of opiate analgesic 14. Other jail (current) 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 15. Family history of stroke [email or web address]
[2023-08-09] MEDS ORDERED: CARVEDILOL3.125 MG PO (14:03)
[2023-08-09] MEDS ORDERED: OXYCODONE HCL5 MG PO (16:15)
[2023-08-09 16:23] VITALS: BP 133/80
== END 2023-08-09 16:24 | disposition home or self-care (01) ==
LOC: ED 13:47
DX: K08.89 Other specified disorders of teeth and supporting structures (principal); E11.9 Type 2 diabetes mellitus without complications; F17.200 Nicotine dependence, unspecified, uncomplicated; Z79.899 Other long term (current) 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; Z79.4 Long term (current) use of insulin

== ENCOUNTER 2023-08-10 12:19 | Emergency (ER) | payer OTHER ==
[~2023-08-10] VITALS: Ht 182.9 cm; Wt 97.7 kg
[~2023-08-10 12:19] MED LIST changes: +CARVEDILOL3.125 MG PO; +OXYCODONE HCL5 MG PO
--- OUTSIDE RECORDS SUMMARY | 2023-08-10 12:23 | XMS ---
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 RAI Security Manager Regional Sales Events No recent Security Events currently on file CRITERIA MET - [facility] - [facility] - 2 Visits in 30 Days CARE PROVIDERS Tamica Westbrook Complaint Manager/Head Start Coordinator 04/12/2023-Current PHONE: [phone] ZACKERY SORTO Nurse Practitioner: 10/14/2021-Current PHONE: [phone] -, [place]- Dentist: Air Table Operator [facility] PHONE: [phone] -[place]- Dentist: Air Table Operator [facility] PHONE: [phone] SHAKILA [facility] Current CARE SYSTEM GarciaGeraldine J[facility]AV[facility]I [facility] PHONE: [phone] DALY SILVA [facility] Current PHONE: Unknown Matty has no Care Guidelines for this patient. Sina VISIT COUNT (12 MO.) 8 NORA Valenzuela TOTAL 8 NOTE: Visits indicate total known visits. ED/UCC VISIT TRACKING (12 MO.) 08/10/2023 12:19 NORA Camarena [place] TYPE: Emergency COMPLAINT: - VOMITING BLOOD 08/09/2023 13:48 NORA Camarena [place] TYPE: Emergency COMPLAINT: - MOUTH PAIN 06/26/2023 00:20 NORA Camarena [place] TYPE: Emergency COMPLAINT: - DENTAL PAIN DIAGNOSES: - Chronic gingivitis, plaque induced - termite exterminator (current) use of insulin - Nicotine dependence, unspecified, uncomplicated - Other intermediate school teacher (current) 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 - Other specified disorders of teeth and supporting structures - Periapical abscess without sinus - Type 2 diabetes mellitus without complications 03/25/2023 20:40 NORA Camarena [place] TYPE: Emergency COMPLAINT: - VOMITING DIAGNOSES: - Alcohol abuse, in remission - Contact with and (suspected) exposure to COVID-19 - Hematemesis - retirement (current) use of insulin - Nicotine dependence, unspecified, uncomplicated - Other senior living (current) 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 - Secondary esophageal varices with bleeding - Type 2 diabetes mellitus with hyperglycemia - Type 2 diabetes mellitus without complications - Unspecified cirrhosis of liver 01/22/2023 09:05 NORA Camarena [place] TYPE: Emergency COMPLAINT: - N/V, DIZZY, ABD PAIN DIAGNOSES: - Gastroparesis - Nicotine dependence, unspecified, uncomplicated - Other senior living (current) 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 - Right upper quadrant pain - Type 2 diabetes mellitus with diabetic autonomic (poly)neuropathy 12/19/2022 04:04 NORA Camarena [place] TYPE: Emergency COMPLAINT: - VOMITING BLOOD DIAGNOSES: - Hematemesis - retirement (current) use of insulin - Nicotine dependence, unspecified, uncomplicated - Other senior living (current) 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 - Type 2 diabetes mellitus without complications 12/16/2022 16:14 NORA Camarena [place] TYPE: Emergency COMPLAINT: - VOMITING W/ BLOOD DIAGNOSES: - Alcoholic cirrhosis of liver without ascites - Hematemesis - retirement (current) use of insulin - Nicotine dependence, unspecified, uncomplicated - Other senior living (current) 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 - Other specified postprocedural states - Type 2 diabetes mellitus without complications 08/14/2022 13:21 NORA Camarena [place] TYPE: Emergency COMPLAINT: - VOMITING, ABD PAIN DIAGNOSES: - Gastroparesis - termite exterminator (current) use of insulin - Nicotine dependence, unspecified, uncomplicated - Other intermediate school teacher (current) 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 - Type 2 diabetes mellitus with diabetic autonomic (poly)neuropathy - Unspecified cirrhosis of liver - Vomiting, unspecified INPATIENT VISIT TRACKING (12 MO.) 03/26/2023 02:30 [facility] Heather Romero ID TYPE: General Medicine DIAGNOSES: - Alcoholic cirrhosis of liver without ascites - Gastrointestinal hemorrhage, unspecified - Thrombocytopenia, unspecified - Bleeding esophageal varices 12/16/2022 22:11 Catherine Della NarinderAngella NAVARRETE TYPE: Medical Surgical COMPLAINT: - GI [...] cigarettes, uncomplicated 10. Essential (primary) hypertension 11. retirement (current) use of insulin 12. retirement (current) use of oral hypoglycemic drugs 13. retirement (current) use of opiate analgesic 14. Other senior living (current) 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 15. Family history of stroke [id number]
[2023-08-10 12:40] LABS: BASOPHILS 0.4 % (0-2); EOSINOPHILS 2.9 % (0-6); HEMATOCRIT 40.9 % (35.0-50.0); HEMOGLOBIN 13.9 g/dL (12.0-18.0); LYMPHOCYTES 20.1 % (24-44); MCH 29.7 (27-36); MCV 87.1 fl (81-99); MONOCYTES 9.3 % (0-12); NEUTROPHILS 67.3 % (39-80); RBC 4.69 M/ul (4.3-5.7); RDW 15.2 (10.5-15.0)
[2023-08-10 12:50] LABS: INR 1.1 (0.80-1.30); PROTIME 13.8 Sec (11.2-14.2)
[2023-08-10 12:52] LABS: PARTIAL THROMBOPLASTIN TIME 27.5 Sec (22.9-41.3)
[2023-08-10 12:55] LABS: ALBUMIN 3.7 g/dL (3.4-5.0); ALBUMIN/GLOBULIN RATIO 1.12 (1.1-2.4); BUN/CREATININE RATIO 20.31 (6.0-28.6); CALCIUM 8.9 mg/dL (8.5-10.1); CREATININE, SERUM 0.64 mg/dL (0.70-1.30)
[2023-08-10 13:16] LABS: ABO O; ANTIBODY SCREEN NEGATIVE; RH POSITIVE
[2023-08-10 16:25] LABS: BASOPHILS 0.6 % (0-2); EOSINOPHILS 3.9 % (0-6); HEMOGLOBIN 12.3 g/dL (12.0-18.0); LYMPHOCYTES 25.3 % (24-44); MCH 29.8 (27-36); MCV 87.5 fl (81-99); MONOCYTES 10.5 % (0-12); NEUTROPHILS 59.7 % (39-80); RBC 4.12 M/ul (4.3-5.7); RDW 15.1 (10.5-15.0)
[2023-08-10 16:34] LABS: PLATELET COUNT 39 K/uL (140-440)
[2023-08-10 16:38] LABS: PLATELET COUNT 37 K/uL (140-440)
[2023-08-10 17:30] LABS: BILIRUBIN, URINE NEGATIVE (negative); BLOOD/HGB, URINE NEGATIVE (Negative); KETONE, URINE TRACE (Negative); LEUK ESTERASE, URINE NEGATIVE (negative); NITRITE, URINE NEGATIVE (negative); PH, URINE 6.5 (5-7)
[2023-08-10 18:29] LABS: IS CROSSMATCH COMPATIBLE
[2023-08-10 20:45] LABS: HEMATOCRIT 35.6 % (35.0-50.0); HEMOGLOBIN 12.3 g/dL (12.0-18.0); MCH 30.1 (27-36); MCHC 34.4 g/dl (30-36); MCV 87.3 fl (81-99); RBC 4.08 M/ul (4.3-5.7); RDW 15.2 (10.5-15.0)
[2023-08-10 20:49] LABS: PLATELET COUNT 37 K/uL (140-440)
[2023-08-10 21:01] LABS: BANDS, MANUAL DIFF 5; EOSINOPHILS, MANUAL DIFF 2; LYMPHOCYTES, MANUAL DIFF 27; MONOCYTES, MANUAL DIFF 5; NEUTROPHILS, MANUAL DIFF 61
[2023-08-10 21:14] VITALS: BP 124/74
== END 2023-08-10 21:10 | disposition home or self-care (01) ==
LOC: ED 12:19
PROVIDERS: Emergency Medicine; Family Medicine
DX: K92.0 Hematemesis (principal); D72.819 Decreased white blood cell count, unspecified; D69.6 Thrombocytopenia, unspecified; K74.60 Unspecified cirrhosis of liver; F10.10 Alcohol abuse, uncomplicated; I85.10 Secondary esophageal varices without bleeding; E11.9 Type 2 diabetes mellitus without complications; F17.200 Nicotine dependence, unspecified, uncomplicated; Z79.899 Other long term (current) 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; Z79.4 Long term (current) use of insulin
CPT/HCPCS: 36415; 80053; 81003; 85025; 85060; 85610; 85730; 86850; 86900; 86901; 86922; 96374; 96375; 96376; 99284-25; J0780; J2270; J2405; J7121

== ENCOUNTER 2023-11-20 15:03 | Emergency (ER) | payer OTHER ==
[~2023-11-20] VITALS: Ht 182.9 cm; Wt 95.1 kg
--- OUTSIDE RECORDS SUMMARY | 2023-11-20 15:06 | XMS ---
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 RAI Security Shampoo Person Events No recent Security Events currently on file CRITERIA MET - [employer] CARE PROVIDERS Pietro Tamica Calendering Supervisor/Building Maintenance Worker 11/11/2023-Current PHONE: [phone] MEJIA RAMOS Internal Medicine 08/10/2023-Current PHONE: [phone] ZACKERY SORTO Nurse Practitioner: 10/14/2021-Current PHONE: [phone] -[place]- Dentist: Huc Ob [facility] PHONE: [phone] -[place]- Dentist: Huc Ob [facility] PHONE: [phone] [facility] Current CARE SYSTEM \F\ SHAKILA [facility] PHONE: [phone] DALY SILVA [facility] Current PHONE: Unknown Matty has no Care Guidelines for this patient. Sina VISIT COUNT (12 MO.) Mamie [facility] [place] TOTAL 9 NOTE: Visits indicate total known visits. ED/UCC VISIT TRACKING (12 MO.) 11/20/2023 15:05 NORA Camarena [place] TYPE: Emergency COMPLAINT: - FELL HURT RIBS 09/21/2023 17:01 NORA Camarena [place] TYPE: Emergency COMPLAINT: - MOUTH PAIN DIAGNOSES: - Jaw pain - rn radiation oncology (current) use of insulin - Nicotine dependence, unspecified, uncomplicated - Other acute postprocedural pain - Other gas brazer (current) 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 - Other specified postprocedural states - Type 2 diabetes mellitus without complications 08/10/2023 12:19 NORA Camarena [place] TYPE: Emergency COMPLAINT: - VOMITING BLOOD DIAGNOSES: - Alcohol abuse, uncomplicated - Decreased white blood cell count, unspecified - Hematemesis - rn radiation oncology (current) use of insulin - Nicotine dependence, unspecified, uncomplicated - Other long-term (current) 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 - Secondary esophageal varices without bleeding - Thrombocytopenia, unspecified - Type 2 diabetes mellitus without complications - Unspecified cirrhosis of liver 08/09/2023 13:48 NORA Camarena [place] TYPE: Emergency COMPLAINT: - MOUTH PAIN DIAGNOSES: - longterm (current) use of insulin - Nicotine dependence, unspecified, uncomplicated - Other long-term (current) 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 - Other specified disorders of teeth and supporting structures - Type 2 diabetes mellitus without complications 06/26/2023 00:20 NORA Camarena [place] TYPE: Emergency COMPLAINT: - DENTAL PAIN DIAGNOSES: - Chronic gingivitis, plaque induced - rn radiation oncology (current) use of insulin - Nicotine dependence, unspecified, uncomplicated - Other long-term (current) 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 - Other specified disorders of teeth and supporting structures - Periapical abscess without sinus - Type 2 diabetes mellitus without complications 03/25/2023 20:40 NORA Camarena [place] TYPE: Emergency COMPLAINT: - VOMITING DIAGNOSES: - Alcohol abuse, in remission - Contact with and (suspected) exposure to COVID-19 - Hematemesis - rn radiation oncology (current) use of insulin - Nicotine dependence, unspecified, uncomplicated - Other long-term (current) 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 - Secondary esophageal varices with bleeding - Type 2 diabetes mellitus with hyperglycemia - Type 2 diabetes mellitus without complications - Unspecified cirrhosis of liver 01/22/2023 09:05 NORA Camarena [place] TYPE: Emergency COMPLAINT: - N/V, DIZZY, ABD PAIN DIAGNOSES: - Gastroparesis - Nicotine dependence, unspecified, uncomplicated - Other long-term (current) 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 - Right upper quadrant pain - Type 2 diabetes mellitus with diabetic autonomic (poly)neuropathy 12/19/2022 04:04 NORA Camarena [place] TYPE: Emergency COMPLAINT: - VOMITING BLOOD DIAGNOSES: - Hematemesis - rn radiation oncology (current) use of insulin - Nicotine dependence, unspecified, uncomplicated - Other gas brazer (current) 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 - Type 2 diabetes mellitus without complications 12/16/2022 16:14 NORA Gibson TYPE: Emergency COMPLAINT: - VOMITING W/ BLOOD DIAGNOSES: - Alcoholic cirrhosis of liver without ascites - Hematemesis - longterm (current) use of insulin - Nicotine dependence, unspecified, uncomplicated - Other gas brazer (current) 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 - Other specified postprocedural states - Type 2 diabetes mellitus without complications INPATIENT VISIT TRACKING (12 MO.) 03/26/2023 02:30 [facility] ID TYPE: General Medicine DIAGNOSES: - Alcoholic cirrhosis of liver without ascites - Gastrointestinal hemorrhage, unspecified - Thrombocytopenia, unspecified - Bleeding esophageal varices 12/16/2022 22:11 Catherine NAVARRETE TYPE: Medical Surgical [...] cigarettes, uncomplicated 10. Essential (primary) hypertension 11. longterm (current) use of insulin 12. rn radiation oncology (current) use of oral hypoglycemic drugs 13. rn radiation oncology (current) use of opiate analgesic 14. Other gas brazer (current) 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 15. Family history of stroke [id number]
[2023-11-20] MEDS ORDERED: SODIUM CHLORIDE 0.9% 1,000 ML IV PRN (16:00)
[2023-11-20 16:16] LABS: BASOPHILS 0.7 % (0-2); EOSINOPHILS 3.4 % (0-6); HEMATOCRIT 40.3 % (35.0-50.0); HEMOGLOBIN 13.6 g/dL (12.0-18.0); LYMPHOCYTES 26.9 % (24-44); MCH 29.7 (27-36); MCHC 33.7 g/dl (30-36); MCV 87.9 fl (81-99); MONOCYTES 9.8 % (0-12); NEUTROPHILS 59.2 % (39-80); RBC 4.59 M/ul (4.3-5.7); RDW 13.3 (10.5-15.0)
[2023-11-20 16:26] LABS: PARTIAL THROMBOPLASTIN TIME 27.1 Sec (22.9-41.3)
[2023-11-20 16:27] LABS: INR 1.14 (0.80-1.30); PROTIME 13.9 Sec (11.2-14.2)
[2023-11-20] MEDS ORDERED: MORPHINE SULFATE 4 MG/ML VIAL IV ONE (16:30)
[2023-11-20 16:32] LABS: ALBUMIN 3.8 g/dL (3.4-5.0); ALBUMIN/GLOBULIN RATIO 1.15 (1.1-2.4); ANION GAP 9.1 (7-21); BUN/CREATININE RATIO 9.52 (6.0-28.6); CALCIUM 8.5 mg/dL (8.5-10.1); CREATININE, SERUM 0.84 mg/dL (0.70-1.30); POTASSIUM 4.1 mmol/L (3.5-5.1); PROTEIN, TOTAL 7.1 g/dL (6.4-8.2)
[2023-11-20 16:37] LABS: PLATELET COUNT 40 K/uL (140-440)
[2023-11-20 18:11] VITALS: BP 123/76
== END 2023-11-20 18:10 | disposition home or self-care (01) ==
LOC: ED 15:03
PROVIDERS: Emergency Medicine
DX: S06.9X9A Unspecified intracranial injury with loss of consciousness of unspecified duration, initial encounter (principal); S16.1XXA Strain of muscle, fascia and tendon at neck level, initial encounter; S20.211A Contusion of right front wall of thorax, initial encounter; S40.011A Contusion of right shoulder, initial encounter; S60.211A Contusion of right wrist, initial encounter; W01.10XA Fall on same level from slipping, tripping and stumbling with subsequent striking against unspecified object, initial encounter; E11.9 Type 2 diabetes mellitus without complications; F17.200 Nicotine dependence, unspecified, uncomplicated; Z79.899 Other long term (current) 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; Z79.4 Long term (current) use of insulin
CPT/HCPCS: 36415; 70450; 71045; 71260; 72125; 73030; 73110; 74177; 80053; 85025; 85060; 85610; 85730; 99284-25; J2270; J7030; Q9967

== ENCOUNTER 2024-06-14 07:35 | Emergency (ER) | payer OTHER ==
[~2024-06-14] VITALS: Ht 182.9 cm; Wt 90.4 kg
[2024-06-14] MEDS ORDERED: BACTRIM DS TAB1 EACH PO (08:39)
[2024-06-14 08:44] VITALS: BP 134/86
== END 2024-06-14 08:45 | disposition home or self-care (01) ==
LOC: ED 07:35
DX: L02.01 Cutaneous abscess of face (principal); E10.9 Type 1 diabetes mellitus without complications; K72.10 Chronic hepatic failure without coma; F17.200 Nicotine dependence, unspecified, uncomplicated; Z79.899 Other long term (current) 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; Z79.4 Long term (current) use of insulin
CPT/HCPCS: 10060; 99283-25

== ENCOUNTER 2024-06-21 12:08 | Emergency (ER) | payer OTHER ==
[~2024-06-21] VITALS: Ht 182.9 cm; Wt 89.0 kg
[~2024-06-21 12:08] MED LIST changes: +BACTRIM DS TAB1 EACH PO
--- OUTSIDE RECORDS SUMMARY | 2024-06-21 12:14 | XMS ---
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 RAI Security Equities Trader Events No recent Security Events currently on file CRITERIA MET - [facility] - 2 Visits in 30 Days CARE PROVIDERS Tamica Westbrook Garage Laborer/Machine Taper 06/12/2024-Current PHONE: [phone] MEJIA RAMOS Internal Medicine 08/10/2023-Current PHONE: [phone] ZACKERY SORTO Nurse Practitioner: 10/14/2021-Current PHONE: [phone] -[facility] Dentist: Manager Sterile Processing Parminder Mayeron PHONE: [phone] -, [place]- Dentist: Manager Sterile Processing [facility] PHONE: [phone] -[place]- Dentist: Manager Sterile Processing [facility] PHONE: [phone] [facility] Current CARE SYSTEM \FGarcia [facility] PHONE: [phone] DALY SILVA [facility] Current PHONE: Unknown Matty has no Care Guidelines for this patient. E.D. VISIT COUNT (12 MO.) 8 NORA Valenzuela TOTAL 8 NOTE: Visits indicate total known visits. ED/UCC VISIT TRACKING (12 MO.) 06/21/2024 12:09 NORA Camarena [place] TYPE: Emergency COMPLAINT: - ABDOMINAL PAIN 06/14/2024 07:35 NORA Monteiro[place] HAngella Alves [place] TYPE: Emergency COMPLAINT: - SKIN PROBLEM DIAGNOSES: - Chronic hepatic failure without coma - Cutaneous abscess of face - [facility] (current) use of insulin - Nicotine dependence, unspecified, uncomplicated - Other half-way (current) 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 - Type 1 diabetes mellitus without complications 12/01/2023 02:01 NORA Isaacsamilcar BarcenasAngella Alves [place] TYPE: Emergency COMPLAINT: - VOMITING BLOOD DIAGNOSES: - Alcoholic cirrhosis of liver without ascites - Epigastric pain - terminal makeup operator (current) use of insulin - Nicotine dependence, unspecified, uncomplicated - Other vermin exterminator (current) 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 - Secondary esophageal varices with bleeding - Type 2 diabetes mellitus without complications 11/20/2023 15:05 NORA Isaacsamilcar BarcenasAngella Alves [place] TYPE: Emergency COMPLAINT: - FELL HURT RIBS DIAGNOSES: - Contusion of right front wall of thorax, initial encounter - Contusion of right shoulder, initial encounter - Contusion of right wrist, initial encounter - Dizziness and giddiness - Fall on same level from slipping, tripping and stumbling with subsequent striking against unspecified object, initial encounter - [facility] (current) use of insulin - Nicotine dependence, unspecified, uncomplicated - Other half-way (current) 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 - Strain of muscle, fascia and tendon at neck level, initial encounter - Type 2 diabetes mellitus without complications - Unspecified intracranial injury with loss of consciousness of unspecified duration, initial encounter 09/21/2023 17:01 NORA Camarena [place] TYPE: Emergency COMPLAINT: - MOUTH PAIN DIAGNOSES: - Jaw pain - terminal makeup operator (current) use of insulin - Nicotine dependence, unspecified, uncomplicated - Other acute postprocedural pain - Other half-way (current) 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 - Other specified postprocedural states - Type 2 diabetes mellitus without complications 08/10/2023 12:19 NORA Camarena [place] TYPE: Emergency COMPLAINT: - VOMITING BLOOD DIAGNOSES: - Alcohol abuse, uncomplicated - Decreased white blood cell count, unspecified - Hematemesis - terminal makeup operator (current) use of insulin - Nicotine dependence, unspecified, uncomplicated - Other half-way (current) 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 - Secondary esophageal varices without bleeding - Thrombocytopenia, unspecified - Type 2 diabetes mellitus without complications - Unspecified cirrhosis of liver 08/09/2023 13:48 NORA Camarena [place] TYPE: Emergency COMPLAINT: - MOUTH PAIN DIAGNOSES: - [facility] (current) use of insulin - Nicotine dependence, unspecified, uncomplicated - Other half-way (current) 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 - Other specified disorders of teeth and supporting structures - Type 2 diabetes mellitus without complications 06/26/2023 00:[address] [facility] [address] [facility] Alves [place] TYPE: Emergency COMPLAINT: - DENTAL PAIN DIAGNOSES: - Chronic gingivitis, plaque induced - [facility] (current) use of insulin - Nicotine dependence, unspecified, uncomplicated - Other half-way (current) 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 - Other specified disorders of teeth and supporting structures - Periapical abscess without sinus - Type 2 diabetes mellitus without complications INPATIENT VISIT TRACKING (12 MO.) No inpatient visits to display in this time frame [id number]
[2024-06-21 12:57] LABS: INR 1.1 (0.80-1.30); PROTIME 13.8 Sec (11.2-14.2)
[2024-06-21] MEDS ORDERED: ondansetron HCL 4 MG/2 ML VIAL IV PRN (13:00)
[2024-06-21] MEDS ORDERED: SODIUM CHLORIDE 0.9% 1,000 ML IV PRN (13:00)
[2024-06-21] MEDS ORDERED: HYDROmorphone HCL 1 MG/ML SYR IV PRN ×2 (13:00→17:00)
[2024-06-21 13:03] LABS: BASOPHILS 2.5 % (0-2); HEMOGLOBIN 16.3 g/dL (12.0-18.0); LYMPHOCYTES 18.1 % (24-44); MCH 30.5 (27-36); MCHC 33.9 g/dl (30-36); MCV 89.8 fl (81-99); MONOCYTES 7.6 % (0-12); NEUTROPHILS 68.8 % (39-80); RBC 5.34 M/ul (4.3-5.7); RDW 13.8 (10.5-15.0)
[2024-06-21 13:04] LABS: ALBUMIN 4.2 g/dL (3.4-5.0); ALBUMIN/GLOBULIN RATIO 1.27 (1.1-2.4); ANION GAP 7.9 (7-21); BILIRUBIN, TOTAL 1.2 ng/dL (0.2-1.0); BUN/CREATININE RATIO 6.81 (6.0-28.6); CALCIUM 9.2 mg/dL (8.5-10.1); CREATININE, SERUM 0.88 mg/dL (0.70-1.30); POTASSIUM 3.9 mmol/L (3.5-5.1); PROTEIN, TOTAL 7.5 g/dL (6.4-8.2)
[2024-06-21 13:07] LABS: PLATELET COUNT 45 K/uL (140-440)
[2024-06-21 13:20] LABS: ABO O; ANTIBODY SCREEN NEGATIVE; RH POSITIVE
[2024-06-21 14:09] LABS: BILIRUBIN, URINE NEGATIVE (negative); BLOOD/HGB, URINE NEGATIVE (Negative); KETONE, URINE TRACE (Negative); LEUK ESTERASE, URINE NEGATIVE (negative); NITRITE, URINE NEGATIVE (negative); PH, URINE 5.5 (5-7)
[2024-06-21 16:05] LABS: BASOPHILS 0.4 % (0-2); EOSINOPHILS 3.1 % (0-6); HEMOGLOBIN 14.3 g/dL (12.0-18.0); LYMPHOCYTES 25.2 % (24-44); MCH 30.9 (27-36); MCV 88.4 fl (81-99); MONOCYTES 7.9 % (0-12); NEUTROPHILS 63.4 % (39-80); RBC 4.64 M/ul (4.3-5.7); RDW 13.9 (10.5-15.0)
[2024-06-21 16:18] LABS: PLATELET COUNT 32 K/uL (140-440)
[2024-06-21 18:09] LABS: BASOPHILS 0.6 % (0-2); EOSINOPHILS 3.7 % (0-6); HEMATOCRIT 40.9 % (35.0-50.0); HEMOGLOBIN 13.8 g/dL (12.0-18.0); LYMPHOCYTES 28.7 % (24-44); MCH 30.3 (27-36); MCHC 33.8 g/dl (30-36); MCV 89.7 fl (81-99); MONOCYTES 7.8 % (0-12); NEUTROPHILS 59.2 % (39-80); RBC 4.56 M/ul (4.3-5.7); RDW 13.7 (10.5-15.0)
[2024-06-21 18:18] LABS: PLATELET COUNT 34 K/uL (140-440)
[2024-06-21] MEDS ORDERED: PROTONIX40 MG PO (18:20)
[2024-06-21] MEDS ORDERED: ONDANSETRON ODT4 MG PO (18:25)
[2024-06-21 19:38] VITALS: BP 120/76
== END 2024-06-21 19:40 | disposition home or self-care (01) ==
LOC: ED 12:08
PROVIDERS: Emergency Medicine
DX: K92.2 Gastrointestinal hemorrhage, unspecified (principal); D69.6 Thrombocytopenia, unspecified; K70.30 Alcoholic cirrhosis of liver without ascites; I85.10 Secondary esophageal varices without bleeding; E10.9 Type 1 diabetes mellitus without complications; F17.200 Nicotine dependence, unspecified, uncomplicated; Z79.899 Other long term (current) 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
CPT/HCPCS: 36415; 74177; 80053; 81003; 83690; 85025; 85060; 85610; 86850; 86900; 86901; 96375; 96376; 99284-25; J1171; J2405; J7030; Q9967

== ENCOUNTER 2024-06-23 14:14 | Emergency (ER) | payer OTHER ==
[~2024-06-23] VITALS: Ht 182.9 cm; Wt 89.5 kg
[~2024-06-23 14:14] MED LIST changes: +ONDANSETRON ODT4 MG PO; +PROTONIX40 MG PO
--- OUTSIDE RECORDS SUMMARY | 2024-06-23 14:20 | XMS ---
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 RAI Security Telephone Lines Repairer Events No recent Security Events currently on file CRITERIA MET - [facility] - 2 Visits in 30 Days CARE PROVIDERS Tamica Westbrook Patient Clerical Assistant/Training Engineer 06/12/2024-Current PHONE: [phone] MEJIA RAMOS Internal Medicine 08/10/2023-Current PHONE: [phone] ZACKERY SORTO Nurse Practitioner: 10/14/2021-Current PHONE: [phone] -[facility] Dentist: Spacer Type Bar And Segment Parminder Maeyron PHONE: [phone] -, [place]- Dentist: Spacer Type Bar And Segment [facility] PHONE: [phone] -[place]- Dentist: Spacer Type Bar And Segment [facility] PHONE: [phone] [facility] Pediatric[facility] Current CARE SYSTEM \FGarcia [facility] PHONE: [phone] DALY SILVA [facility] Current PHONE: Unknown Matty has no Care Guidelines for this patient. E.D. VISIT COUNT (12 MO.) 9 NORA Valenzuela TOTAL 9 NOTE: Visits indicate total known visits. ED/UCC VISIT TRACKING (12 MO.) 06/23/2024 14:14 NORA Camarena [place] TYPE: Emergency COMPLAINT: - ABDOMINAL PAIN 06/21/2024 12:[address] [facility] BarcenasAngella Alves [place] TYPE: Emergency COMPLAINT: - ABDOMINAL PAIN 06/14/2024 07:35 [facility] Hiro BarcenasAngella Alves [place] TYPE: Emergency COMPLAINT: - SKIN PROBLEM DIAGNOSES: - Chronic hepatic failure without coma - Cutaneous abscess of face - termite treater (current) use of insulin - Nicotine dependence, unspecified, uncomplicated - Other tank terminal gauger (current) 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 - Type 1 diabetes mellitus without complications 12/01/2023 02:01 [facility] Asher HAngella Alves [place] TYPE: Emergency COMPLAINT: - VOMITING BLOOD DIAGNOSES: - Alcoholic cirrhosis of liver without ascites - Epigastric pain - termite treater (current) use of insulin - Nicotine dependence, unspecified, uncomplicated - Other tank terminal gauger (current) 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 - Secondary esophageal varices with bleeding - Type 2 diabetes mellitus without complications 11/20/2023 15:05 [facility] [address] Hiro BarcenasAngella Alves [place] TYPE: Emergency COMPLAINT: - FELL HURT RIBS DIAGNOSES: - Contusion of right front wall of thorax, initial encounter - Contusion of right shoulder, initial encounter - Contusion of right wrist, initial encounter - Dizziness and giddiness - Fall on same level from slipping, tripping and stumbling with subsequent striking against unspecified object, initial encounter - detention (current) use of insulin - Nicotine dependence, unspecified, uncomplicated - Other tank terminal gauger (current) 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 - Strain of muscle, fascia and tendon at neck level, initial encounter - Type 2 diabetes mellitus without complications - Unspecified intracranial injury with loss of consciousness of unspecified duration, initial encounter 09/21/2023 17:01 NORA Camarena [place] TYPE: Emergency COMPLAINT: - MOUTH PAIN DIAGNOSES: - Jaw pain - detention (current) use of insulin - Nicotine dependence, unspecified, uncomplicated - Other acute postprocedural pain - Other tank terminal gauger (current) 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 - Other specified postprocedural states - Type 2 diabetes mellitus without complications 08/10/2023 12:19 NORA Camarena [place] TYPE: Emergency COMPLAINT: - VOMITING BLOOD DIAGNOSES: - Alcohol abuse, uncomplicated - Decreased white blood cell count, unspecified - Hematemesis - detention (current) use of insulin - Nicotine dependence, unspecified, uncomplicated - Other tank terminal gauger (current) 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 - Secondary esophageal varices without bleeding - Thrombocytopenia, unspecified - Type 2 diabetes mellitus without complications - Unspecified cirrhosis of liver 08/09/2023 13:48 NORA Camarena [place] TYPE: Emergency COMPLAINT: - MOUTH PAIN DIAGNOSES: - termite treater (current) use of insulin - Nicotine dependence, unspecified, uncomplicated - Other half-way (current) 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 - Other specified disorders of teeth and supporting structures - Type 2 diabetes mellitus without complications 06/26/2023 00:20 NORA Camarena [place] TYPE: Emergency COMPLAINT: - DENTAL PAIN DIAGNOSES: - Chronic gingivitis, plaque induced - termite treater (current) use of insulin - Nicotine dependence, unspecified, uncomplicated - Other half-way (current) 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 - Other specified disorders of teeth and supporting structures - Periapical abscess without sinus - Type 2 diabetes mellitus without complications INPATIENT VISIT TRACKING (12 MO.) No inpatient visits to display in this time frame [id number]
[2024-06-23] MEDS ORDERED: ondansetron HCL 4 MG/2 ML VIAL IV ONE (14:45)
[2024-06-23] MEDS ORDERED: PANTOPRAZOLE SODIUM 40 MG/10 ML VIAL IV SCH (14:45)
[2024-06-23] MEDS ORDERED: OCTREOTIDE ACETATE 500 MCG in DEXTROSE 5% 250 ML IV SCH (14:45)
[2024-06-23] MEDS ORDERED: OCTREOTIDE ACETATE 100 MCG/ML VIAL IV ONE (14:45)
[2024-06-23 14:54] LABS: BASOPHILS 0.4 % (0-2); EOSINOPHILS 2.3 % (0-6); HEMOGLOBIN 15.3 g/dL (12.0-18.0); MCH 30.7 (27-36); MCHC 34.7 g/dl (30-36); MCV 88.4 fl (81-99); MONOCYTES 7.1 % (0-12); NEUTROPHILS 73.2 % (39-80); RBC 4.98 M/ul (4.3-5.7); RDW 13.7 (10.5-15.0)
[2024-06-23] MEDS ORDERED: HYDROmorphone HCL 1 MG/ML SYR IV PRN ×2 (15:00→19:45)
[2024-06-23 15:02] LABS: PARTIAL THROMBOPLASTIN TIME 26.3 Sec (22.9-41.3)
[2024-06-23 15:03] LABS: INR 1.19 (0.80-1.30); PROTIME 14.4 Sec (11.2-14.2)
[2024-06-23 15:07] LABS: ALBUMIN 4.1 g/dL (3.4-5.0); ALBUMIN/GLOBULIN RATIO 1.32 (1.1-2.4); ANION GAP 15.2 (7-21); BILIRUBIN, TOTAL 1.1 ng/dL (0.2-1.0); BUN/CREATININE RATIO 10.84 (6.0-28.6); CALCIUM 9.1 mg/dL (8.5-10.1); CREATININE, SERUM 0.83 mg/dL (0.70-1.30); PLATELET COUNT 41 K/uL (140-440); POTASSIUM 4.2 mmol/L (3.5-5.1); PROTEIN, TOTAL 7.2 g/dL (6.4-8.2)
[2024-06-23 15:25] LABS: ABO O; RH POSITIVE
[2024-06-23 15:26] LABS: ANTIBODY SCREEN NEGATIVE
[2024-06-23 16:46] LABS: BASOPHILS 0.6 % (0-2); EOSINOPHILS 2.6 % (0-6); HEMATOCRIT 41.4 % (35.0-50.0); HEMOGLOBIN 14.3 g/dL (12.0-18.0); LYMPHOCYTES 21.2 % (24-44); MCH 30.8 (27-36); MCHC 34.6 g/dl (30-36); MCV 88.9 fl (81-99); MONOCYTES 7.8 % (0-12); NEUTROPHILS 67.8 % (39-80); RBC 4.66 M/ul (4.3-5.7); RDW 13.8 (10.5-15.0)
[2024-06-23 16:57] LABS: PLATELET COUNT 30 K/uL (140-440)
[2024-06-23] MEDS ORDERED: PROCHLORPERAZINE EDISYLATE 10 MG/2 ML VIAL IV ONE (19:45)
[2024-06-23 20:38] LABS: BASOPHILS 0.7 % (0-2); EOSINOPHILS 3.7 % (0-6); HEMATOCRIT 41.3 % (35.0-50.0); LYMPHOCYTES 28.7 % (24-44); MCH 30.4 (27-36); MCV 89.4 fl (81-99); MONOCYTES 7.8 % (0-12); NEUTROPHILS 59.1 % (39-80); RBC 4.61 M/ul (4.3-5.7); RDW 13.6 (10.5-15.0)
[2024-06-23 20:52] LABS: PLATELET COUNT 31 K/uL (140-440)
[2024-06-23] MEDS ORDERED: SODIUM CHLORIDE 0.9% 1,000 ML IV SCH (22:30)
[2024-06-23] MEDS ORDERED: LIDOCAINE & ANTACID 35 ML BTL PO ONE (23:30)
[2024-06-23] MEDS ORDERED: SUCRALFATE 1 GM TAB PO ONE (23:30)
[2024-06-23 23:38] LABS: BASOPHILS 0.8 % (0-2); EOSINOPHILS 4.4 % (0-6); HEMATOCRIT 40.5 % (35.0-50.0); HEMOGLOBIN 13.7 g/dL (12.0-18.0); LYMPHOCYTES 32.2 % (24-44); MCH 30.4 (27-36); MCHC 33.8 g/dl (30-36); MCV 89.7 fl (81-99); MONOCYTES 8.8 % (0-12); NEUTROPHILS 53.8 % (39-80); RBC 4.51 M/ul (4.3-5.7); RDW 13.9 (10.5-15.0)
[2024-06-23 23:42] LABS: PLATELET COUNT 34 K/uL (140-440)
[2024-06-24] MEDS ORDERED: OCTREOTIDE ACETATE IV SCH (01:15)
[2024-06-24] MEDS ORDERED: SODIUM CHLORIDE 0.9% IV SCH (01:15)
[2024-06-24] MEDS ORDERED: OCTREOTIDE ACETATE 100 MCG/ML VIAL ONE (01:31)
[2024-06-24] MEDS ORDERED: HYDROmorphone HCL 2 MG TAB PO PRN (05:15)
[2024-06-24] MEDS ORDERED: OCTREOTIDE ACETATE 500 MCG in DEXTROSE 5% 250 ML IV SCH (06:45)
[2024-06-24 09:22] LABS: BASOPHILS 1.2 % (0-2); EOSINOPHILS 4.2 % (0-6); HEMATOCRIT 39.8 % (35.0-50.0); HEMOGLOBIN 13.9 g/dL (12.0-18.0); LYMPHOCYTES 26.9 % (24-44); MCHC 34.9 g/dl (30-36); MCV 88.6 fl (81-99); NEUTROPHILS 59.7 % (39-80); RDW 13.7 (10.5-15.0)
[2024-06-24 09:32] LABS: PLATELET COUNT 33 K/uL (140-440)
[2024-06-24 13:15] VITALS: BP 143/79
== END 2024-06-24 13:15 | disposition home or self-care (01) ==
LOC: ED 14:14
PROVIDERS: Emergency Medicine; Family Medicine
DX: K92.2 Gastrointestinal hemorrhage, unspecified (principal); K70.9 Alcoholic liver disease, unspecified; I85.10 Secondary esophageal varices without bleeding; E10.9 Type 1 diabetes mellitus without complications; F17.200 Nicotine dependence, unspecified, uncomplicated; Z79.899 Other long term (current) 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; Z79.4 Long term (current) use of insulin
CPT/HCPCS: 36415; 80053; 83690; 85025; 85060; 85610; 85730; 86850; 86900; 86901; 96365; 96366; 96375; 96376; 99285-25; J0780; J1171; J2354-JA; J2405; J2470; J7030; J7050; J7060

== ENCOUNTER 2024-07-07 15:49 | Emergency (ER) | payer OTHER ==
[~2024-07-07] VITALS: Ht 182.9 cm; Wt 89.8 kg
--- OUTSIDE RECORDS SUMMARY | 2024-07-07 15:56 | XMS ---
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 RAI Security Design Engineer Marine Equipment Events No recent Security Events currently on file CRITERIA MET - - 2 Visits in 30 Days CARE PROVIDERS Tamica Westbrook Director Orange/Distance Education Director 06/12/2024-Current PHONE: [phone] MEJIA RAMOS Internal Medicine 08/10/2023-Current PHONE: [phone] ZACKERY SORTO Nurse Practitioner: 10/14/2021-Current PHONE: [phone] -[facility] Dentist: Manager Financial Services Parminder Mayeron PHONE: [phone] -, [place]- Dentist: Manager Financial Services [facility] PHONE: [phone] -[place]- Dentist: Manager Financial Services [facility] PHONE: [phone] [facility] Pediatric[facility] Current CARE SYSTEM \FGarcia [facility] PHONE: [phone] DALY SILVA [facility] Current PHONE: Unknown Matty has no Care Guidelines for this patient. E.D. VISIT COUNT (12 MO.) NORA Valenzuela TOTAL 9 NOTE: Visits indicate total known visits. ED/UCC VISIT TRACKING (12 MO.) 07/07/2024 15:49 NORA Camarena [place] TYPE: Emergency COMPLAINT: - VOMITING BLOOD, ABD PAIN, H/C SWEATS 06/23/2024 14:14 [facility] [place] Mohan Alves [place] TYPE: Emergency COMPLAINT: - ABDOMINAL PAIN DIAGNOSES: - Alcoholic liver disease, unspecified - Gastrointestinal hemorrhage, unspecified - Hematemesis - roasterman (current) use of insulin - Nicotine dependence, unspecified, uncomplicated - Other adjunct faculty for medical terminology (current) 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 - Secondary esophageal varices without bleeding - Type 1 diabetes mellitus without complications 06/21/2024 12:09 NORA Camarena [place] TYPE: Emergency COMPLAINT: - ABDOMINAL PAIN DIAGNOSES: - Alcoholic cirrhosis of liver without ascites - Gastrointestinal hemorrhage, unspecified - Lower abdominal pain, unspecified - Nicotine dependence, unspecified, uncomplicated - Other assisted (current) 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 - Secondary esophageal varices without bleeding - Thrombocytopenia, unspecified - Type 1 diabetes mellitus without complications 06/14/2024 07:[address] [facility] [address] [facility]ves [place] TYPE: Emergency COMPLAINT: - SKIN PROBLEM DIAGNOSES: - Chronic hepatic failure without coma - Cutaneous abscess of face - roasterman (current) use of insulin - Nicotine dependence, unspecified, uncomplicated - Other adjunct faculty for medical terminology (current) 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 - Type 1 diabetes mellitus without complications 12/01/2023 02:[address] [facility] [address] [facility] [place] TYPE: Emergency COMPLAINT: - VOMITING BLOOD DIAGNOSES: - Alcoholic cirrhosis of liver without ascites - Epigastric pain - prison (current) use of insulin - Nicotine dependence, unspecified, uncomplicated - Other adjunct faculty for medical terminology (current) 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 - Secondary esophageal varices with bleeding - Type 2 diabetes mellitus without complications 11/20/2023 15:[address] [facility] [address] [facility] BarcenasAngella Alves [place] TYPE: Emergency COMPLAINT: - FELL HURT RIBS DIAGNOSES: - Contusion of right front wall of thorax, initial encounter - Contusion of right shoulder, initial encounter - Contusion of right wrist, initial encounter - Dizziness and giddiness - Fall on same level from slipping, tripping and stumbling with subsequent striking against unspecified object, initial encounter - roasterman (current) use of insulin - Nicotine dependence, unspecified, uncomplicated - Other assisted (current) 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 - Strain of muscle, fascia and tendon at neck level, initial encounter - Type 2 diabetes mellitus without complications - Unspecified intracranial injury with loss of consciousness of unspecified duration, initial encounter 09/21/2023 17:01 [facility] [place] HAngella Alves [place] TYPE: Emergency COMPLAINT: - MOUTH PAIN DIAGNOSES: - Jaw pain - prison (current) use of insulin - Nicotine dependence, unspecified, uncomplicated - Other acute postprocedural pain - Other adjunct faculty for medical terminology (current) 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 - Other specified postprocedural states - Type 2 diabetes mellitus without complications 08/10/2023 12:19 NORA Camarena [place] TYPE: Emergency COMPLAINT: - VOMITING BLOOD DIAGNOSES: - Alcohol abuse, uncomplicated - Decreased white blood cell count, unspecified - Hematemesis - roasterman (current) use of insulin - Nicotine dependence, unspecified, uncomplicated - Other adjunct faculty for medical terminology (current) 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 - Secondary esophageal varices without bleeding - Thrombocytopenia, unspecified - Type 2 diabetes mellitus without complications - Unspecified cirrhosis of liver 08/09/2023 13:48 NORA Camarena [place] TYPE: Emergency COMPLAINT: - MOUTH PAIN DIAGNOSES: - prison (current) use of insulin - Nicotine dependence, unspecified, uncomplicated - Other assisted (current) 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 - Other specified disorders of teeth and supporting structures - Type 2 diabetes mellitus without complications INPATIENT VISIT TRACKING (12 MO.) No inpatient visits to display in this time frame [id number]
[2024-07-07] MEDS ORDERED: ondansetron HCL 4 MG/2 ML VIAL IV ONE (16:15)
[2024-07-07] MEDS ORDERED: SODIUM CHLORIDE 0.9% IV SCH (16:15)
[2024-07-07] MEDS ORDERED: OCTREOTIDE ACETATE IV SCH (16:15)
[2024-07-07] MEDS ORDERED: OCTREOTIDE ACETATE 100 MCG/ML VIAL IV ONE (16:15)
[2024-07-07] MEDS ORDERED: PANTOPRAZOLE SODIUM 40 MG/10 ML VIAL IV ONE (16:15)
[2024-07-07 16:20] LABS: BASOPHILS 0.6 % (0-2); EOSINOPHILS 2.3 % (0-6); HEMATOCRIT 46.8 % (35.0-50.0); HEMOGLOBIN 15.9 g/dL (12.0-18.0); MCH 30.4 (27-36); MCHC 33.9 g/dl (30-36); MCV 89.7 fl (81-99); NEUTROPHILS 70.1 % (39-80); RBC 5.22 M/ul (4.3-5.7); RDW 13.8 (10.5-15.0)
[2024-07-07 16:28] LABS: PARTIAL THROMBOPLASTIN TIME 27.5 Sec (22.9-41.3)
[2024-07-07 16:29] LABS: INR 1.13 (0.80-1.30); PROTIME 13.8 Sec (11.2-14.2)
[2024-07-07 16:32] LABS: PLATELET COUNT 43 K/uL (140-440)
[2024-07-07 16:34] LABS: ALBUMIN 4.3 g/dL (3.4-5.0); ALBUMIN/GLOBULIN RATIO 1.34 (1.1-2.4); ANION GAP 14.6 (7-21); BILIRUBIN, TOTAL 1.1 ng/dL (0.2-1.0); BUN/CREATININE RATIO 8.57 (6.0-28.6); CALCIUM 8.9 mg/dL (8.5-10.1); CREATININE, SERUM 0.7 mg/dL (0.70-1.30); POTASSIUM 3.6 mmol/L (3.5-5.1); PROTEIN, TOTAL 7.5 g/dL (6.4-8.2)
[2024-07-07] MEDS ORDERED: HYDROmorphone HCL 1 MG/ML SYR IV PRN (16:45)
[2024-07-07] MEDS ORDERED: droPERidol 5 MG/2 ML VIAL IV ONE (16:45)
[2024-07-07 16:59] LABS: ABO O; RH POSITIVE
[2024-07-07 17:00] LABS: ANTIBODY SCREEN NEGATIVE
[2024-07-07 19:33] LABS: HEMATOCRIT 38.5 % (35.0-50.0); HEMOGLOBIN 13.2 g/dL (12.0-18.0); MCH 30.6 (27-36); MCHC 34.4 g/dl (30-36); MCV 89.1 fl (81-99); RBC 4.32 M/ul (4.3-5.7); RDW 13.5 (10.5-15.0)
[2024-07-07 20:03] LABS: BASOPHILS, MANUAL DIFF 3; LYMPHOCYTES, MANUAL DIFF 47; MONOCYTES, MANUAL DIFF 7; NEUTROPHILS, MANUAL DIFF 43
[2024-07-07 20:05] LABS: PLATELET COUNT 33 K/uL (140-440)
[2024-07-07 21:14] LABS: HEMATOCRIT 38.8 % (35.0-50.0); HEMOGLOBIN 13.2 g/dL (12.0-18.0); MCH 30.6 (27-36); MCHC 34.1 g/dl (30-36); MCV 89.9 fl (81-99); RBC 4.31 M/ul (4.3-5.7); RDW 13.4 (10.5-15.0)
[2024-07-07 21:33] LABS: BANDS, MANUAL DIFF 8; EOSINOPHILS, MANUAL DIFF 4; LYMPHOCYTES, MANUAL DIFF 38; MONOCYTES, MANUAL DIFF 4; NEUTROPHILS, MANUAL DIFF 46
[2024-07-07 21:35] LABS: PLATELET COUNT 30 K/uL (140-440)
[2024-07-07] MEDS ORDERED: MORPHINE SULFATE 4 MG/ML VIAL IV PRN (23:45)
[2024-07-07 23:46] LABS: BASOPHILS 1.6 % (0-2); EOSINOPHILS 4.4 % (0-6); HEMATOCRIT 38.4 % (35.0-50.0); HEMOGLOBIN 13.1 g/dL (12.0-18.0); LYMPHOCYTES 34.4 % (24-44); MCH 30.3 (27-36); MCV 89.2 fl (81-99); MONOCYTES 9.9 % (0-12); NEUTROPHILS 49.7 % (39-80); RDW 13.7 (10.5-15.0)
[2024-07-07 23:48] LABS: PLATELET COUNT 32 K/uL (140-440)
[2024-07-08] MEDS ORDERED: OCTREOTIDE ACETATE 100 MCG/ML VIAL ONE (02:32)
[2024-07-08 06:08] LABS: BASOPHILS 0.8 % (0-2); EOSINOPHILS 3.9 % (0-6); HEMATOCRIT 39.7 % (35.0-50.0); HEMOGLOBIN 13.7 g/dL (12.0-18.0); LYMPHOCYTES 35.6 % (24-44); MCH 30.5 (27-36); MCHC 34.5 g/dl (30-36); MCV 88.2 fl (81-99); NEUTROPHILS 53.7 % (39-80); RBC 4.49 M/ul (4.3-5.7); RDW 13.7 (10.5-15.0)
[2024-07-08 06:11] LABS: PLATELET COUNT 36 K/uL (140-440)
[2024-07-08] MEDS ORDERED: OXYCODONE HCL5 MG PO (06:22)
[2024-07-08 06:45] VITALS: BP 135/85
== END 2024-07-08 06:45 | disposition home or self-care (01) ==
LOC: ED 15:49
PROVIDERS: Emergency Medicine; Family Medicine
DX: K92.0 Hematemesis (principal); E10.9 Type 1 diabetes mellitus without complications; F17.200 Nicotine dependence, unspecified, uncomplicated; Z79.899 Other long term (current) 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; Z79.4 Long term (current) use of insulin
CPT/HCPCS: 36415; 80053; 85025; 85060; 85610; 85730; 86850; 86900; 86901; 96365; 96366; 96375; 96376; 99284-25; J1171; J1790; J2270; J2354-JA; J2405; J2470; J7050

== ENCOUNTER 2024-07-21 00:58 | Emergency (ER) | payer OTHER ==
[~2024-07-21] VITALS: Ht 182.9 cm; Wt 84.8 kg
--- OUTSIDE RECORDS SUMMARY | 2024-07-21 01:01 | XMS ---
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 - 2 Visits in 30 Days CARE PROVIDERS Tamica eWstbrook Community Service Representative/Hospital Director 07/13/2024-Current PHONE: [phone] MEJIA RAMOS Internal Medicine 08/10/2023-Current PHONE: [phone] ZACKERY SORTO Nurse Practitioner: 10/14/2021-Current PHONE: [phone] -[facility] Dentist: Sonography Technologist Parminder Alves PHONE: [phone] -, [place]- Dentist: Sonography Technologist Current [facility] PHONE: [phone] -[place]- Dentist: Sonography Technologist Current [facility] PHONE: [phone] SHAKILA [facility] Pediatrics Current CARE SYSTEM \[facility] PHONE: [phone] DALY SILVA [facility] Current PHONE: Unknown Matty has no Care Guidelines for this patient. Sina VISIT COUNT (12 MO.) 10 NORA Upton TOTAL 11 NOTE: Visits indicate total known visits. ED/UCC VISIT TRACKING (12 MO.) 07/21/2024 00:59 [place]A [place]rena [place] TYPE: Emergency COMPLAINT: - RECTAL BLEEDING 07/10/2024 18:08 Catherine Boo [place] TYPE: Emergency COMPLAINT: - HEMATEMESIS - Vomiting_VOMITTING BLOOD DIAGNOSES: 0. Hematemesis 1. Gastrointestinal hemorrhage, unspecified 3. Nicotine dependence, cigarettes, uncomplicated 07/07/2024 15:49 NORA Gibson TYPE: Emergency COMPLAINT: - VOMITING BLOOD, ABD PAIN, H/C SWEATS DIAGNOSES: - Hematemesis - extermination supervisor (current) use of insulin - Nicotine dependence, unspecified, uncomplicated - Other mcc (current) 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 - Type 1 diabetes mellitus without complications 06/23/2024 14:14 [place] TYPE: Emergency COMPLAINT: - ABDOMINAL PAIN DIAGNOSES: - Alcoholic liver disease, unspecified - Gastrointestinal hemorrhage, unspecified - Hematemesis - extermination supervisor (current) use of insulin - Nicotine dependence, unspecified, uncomplicated - Other mcc (current) 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 - Secondary esophageal varices without bleeding - Type 1 diabetes mellitus without complications 06/21/2024 12:09 [place]A [place] TYPE: Emergency COMPLAINT: - ABDOMINAL PAIN DIAGNOSES: - Alcoholic cirrhosis of liver without ascites - Gastrointestinal hemorrhage, unspecified - Lower abdominal pain, unspecified - Nicotine dependence, unspecified, uncomplicated - Other mcc (current) 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 - Secondary esophageal varices without bleeding - Thrombocytopenia, unspecified - Type 1 diabetes mellitus without complications 06/14/2024 07:35 NORA [place] TYPE: Emergency COMPLAINT: - SKIN PROBLEM DIAGNOSES: - Chronic hepatic failure without coma - Cutaneous abscess of face - group home (current) use of insulin - Nicotine dependence, unspecified, uncomplicated - Other mcc (current) 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 - Type 1 diabetes mellitus without complications 12/01/2023 02:01 [place] TYPE: Emergency COMPLAINT: - VOMITING BLOOD DIAGNOSES: - Alcoholic cirrhosis of liver without ascites - Epigastric pain - group home (current) use of insulin - Nicotine dependence, unspecified, uncomplicated - Other superintendent container terminal (current) 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 - Secondary esophageal varices with bleeding - Type 2 diabetes mellitus without complications 11/20/2023 15:05 NORA [place] TYPE: Emergency COMPLAINT: - FELL HURT RIBS DIAGNOSES: - Contusion of right front wall of thorax, initial encounter - Contusion of right shoulder, initial encounter - Contusion of right wrist, initial encounter - Dizziness and giddiness - Fall on same level from slipping, tripping and stumbling with subsequent striking against unspecified object, initial encounter - group home (current) use of insulin - Nicotine dependence, unspecified, uncomplicated - Other superintendent container terminal (current) 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 - Strain of muscle, fascia and tendon at neck level, initial encounter - Type 2 diabetes mellitus without complications - Unspecified intracranial injury with loss of consciousness of unspecified duration, initial encounter 09/21/2023 17:01 [place] TYPE: Emergency COMPLAINT: - MOUTH PAIN DIAGNOSES: - Jaw pain - extermination supervisor (current) use of insulin - Nicotine dependence, unspecified, uncomplicated - Other acute postprocedural pain - Other mcc (current) 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 - Other specified postprocedural states - Type 2 diabetes mellitus without complications 08/10/2023 12:19 NORA [place] TYPE: Emergency COMPLAINT: - VOMITING BLOOD DIAGNOSES: - Alcohol abuse, uncomplicated - Decreased white blood cell count, unspecified - Hematemesis - group home (current) use of insulin - Nicotine dependence, unspecified, uncomplicated - Other superintendent container terminal (current) 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 - Secondary esophageal varices without bleeding - Thrombocytopenia, unspecified - Type 2 diabetes mellitus without complications - Unspecified cirrhosis of liver 08/09/2023 13:48 NORA [place] TYPE: Emergency COMPLAINT: - MOUTH PAIN DIAGNOSES: - extermination supervisor (current) use of insulin - Nicotine dependence, unspecified, uncomplicated - Other superintendent container terminal (current) 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 - Other specified disorders of teeth and supporting structures - Type 2 diabetes mellitus without complications INPATIENT VISIT TRACKING (12 MO.) 07/11/2024 07:24 [facility]RETE TYPE: Internal Medicine DIAGNOSES: - Hematemesis - GI Bleed [email or web address]
[2024-07-21 01:30] LABS: BASOPHILS 1.4 % (0-2); EOSINOPHILS 2.6 % (0-6); HEMATOCRIT 46.3 % (35.0-50.0); HEMOGLOBIN 15.8 g/dL (12.0-18.0); LYMPHOCYTES 16.3 % (24-44); MCH 30.1 (27-36); MCHC 34.2 g/dl (30-36); MCV 88.2 fl (81-99); MONOCYTES 5.3 % (0-12); NEUTROPHILS 74.4 % (39-80); RBC 5.25 M/ul (4.3-5.7); RDW 13.4 (10.5-15.0)
[2024-07-21] MEDS ORDERED: PANTOPRAZOLE SODIUM 40 MG/10 ML VIAL IV ONE (01:30)
[2024-07-21 01:37] LABS: INR 1.08 (0.80-1.30); PROTIME 13.9 Sec (11.2-14.2)
[2024-07-21 01:42] LABS: ALBUMIN 3.8 g/dL (3.4-5.0); ALBUMIN/GLOBULIN RATIO 1.09 (1.1-2.4); ANION GAP 14.8 (7-21); BILIRUBIN, TOTAL 0.7 ng/dL (0.2-1.0); BUN/CREATININE RATIO 10.84 (6.0-28.6); CALCIUM 9.2 mg/dL (8.5-10.1); CREATININE, SERUM 0.83 mg/dL (0.70-1.30); POTASSIUM 3.8 mmol/L (3.5-5.1); PROTEIN, TOTAL 7.3 g/dL (6.4-8.2)
[2024-07-21 01:45] LABS: PLATELET COUNT 49 K/uL (140-440)
[2024-07-21] MEDS ORDERED: TRANEXAMIC ACID IN NACL,ISO-OS 1,000 MG/100 ML PIGGYBACK IV ONE (02:15)
[2024-07-21 02:25] LABS: ABO O; RH POSITIVE
[2024-07-21 02:26] LABS: ANTIBODY SCREEN NEGATIVE
[2024-07-21] MEDS ORDERED: HYDROmorphone HCL 1 MG/ML SYR IV PRN (02:30)
[2024-07-21 03:15] LABS: BASOPHILS 0.6 % (0-2); EOSINOPHILS 3.1 % (0-6); HEMATOCRIT 43.3 % (35.0-50.0); HEMOGLOBIN 14.9 g/dL (12.0-18.0); LYMPHOCYTES 16.9 % (24-44); MCH 30.2 (27-36); MCHC 34.3 g/dl (30-36); NEUTROPHILS 75.4 % (39-80); RBC 4.92 M/ul (4.3-5.7); RDW 13.6 (10.5-15.0)
[2024-07-21 03:28] LABS: PLATELET COUNT 42 K/uL (140-440)
[2024-07-21 04:17] LABS: BASOPHILS 0.3 % (0-2); HEMATOCRIT 40.6 % (35.0-50.0); HEMOGLOBIN 14.3 g/dL (12.0-18.0); LYMPHOCYTES 17.9 % (24-44); MCH 30.7 (27-36); MCHC 35.1 g/dl (30-36); MCV 87.3 fl (81-99); MONOCYTES 8.2 % (0-12); NEUTROPHILS 70.6 % (39-80); RBC 4.65 M/ul (4.3-5.7); RDW 13.4 (10.5-15.0)
[2024-07-21 04:27] LABS: PLATELET COUNT 36 K/uL (140-440)
[2024-07-21 04:41] LABS: BILIRUBIN, URINE NEGATIVE (negative); BLOOD/HGB, URINE NEGATIVE (Negative); KETONE, URINE NEGATIVE (Negative); LEUK ESTERASE, URINE NEGATIVE (negative); NITRITE, URINE NEGATIVE (negative); PH, URINE 6.5 (5-7)
[2024-07-21] MEDS ORDERED: ERYTHROMYCIN250 M1 PO (04:44)
[2024-07-21 04:56] LABS: AMPHETAMINES, URINE NEGATIVE (NEGATIVE); BARBITURATES, URINE NEGATIVE (NEGATIVE); BENZODIAZEPINE, URINE NEGATIVE (NEGATIVE); BUPRENORPHINE, URINE NEGATIVE (NEGATIVE); CANNABINOID, URINE POSITIVE (NEGATIVE); COCAINE, URINE NEGATIVE (NEGATIVE); ECSTASY, URINE NEGATIVE (NEGATIVE); FENTANYL, URINE NEGATIVE (NEGATIVE); METHADONE, URINE NEGATIVE (NEGATIVE); OPIATES, URINE NEGATIVE (NEGATIVE); OXYCODONE, URINE NEGATIVE (NEGATIVE); PHENCYCLIDINE, URINE NEGATIVE (NEGATIVE)
[2024-07-21 05:25] VITALS: BP 131/78
== END 2024-07-21 05:26 | disposition home or self-care (01) ==
LOC: ED 00:58
PROVIDERS: Family Medicine
DX: K62.5 Hemorrhage of anus and rectum (principal); E10.9 Type 1 diabetes mellitus without complications; F17.200 Nicotine dependence, unspecified, uncomplicated; Z79.899 Other long term (current) 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; Z79.4 Long term (current) use of insulin
CPT/HCPCS: 36415; 74174; 80053; 80307; 81003; 85025; 85610; 86850; 86900; 86901; 99284-25; J1171; J2470

== ENCOUNTER 2024-08-01 09:41 | Emergency (ER) | payer OTHER ==
[~2024-08-01] VITALS: Ht 182.9 cm; Wt 86.6 kg
[~2024-08-01 09:41] MED LIST changes: +ERYTHROMYCIN250 M1 PO
--- OUTSIDE RECORDS SUMMARY | 2024-08-01 09:48 | XMS ---
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 Events No recent Security Events currently on file CRITERIA MET - 6 ED Visits in 6 Months - [facility] - 2 Visits in 30 Days CARE PROVIDERS Tamica Westbrook General Manager Road Production/Pulverizer 07/13/2024-Current PHONE: [phone] MEJIA RAMOS Internal Medicine 08/10/2023-Current PHONE: [phone] ZACKERY SORTO Nurse Practitioner: 10/14/2021-Current PHONE: [phone] -[facility] Dentist: Behavioral Science Chair Parminder Alves PHONE: [phone] -, [place]- Dentist: Behavioral Science Chair Current [facility] PHONE: [phone] -[place]- Dentist: Behavioral Science Chair Current [facility] PHONE: [phone] SHAKILA [facility] Pediatrics Current CARE SYSTEM \[facility] PHONE: [phone] DALY SILVA [facility] [place] [facility] Current PHONE: Unknown Matty has no Care Guidelines for this patient. Sina VISIT COUNT (12 MO.) 11 NORA Cee HAngella TOTAL 12 NOTE: Visits indicate total known visits. ED/UCC VISIT TRACKING (12 MO.) 08/01/2024 09:42 [place] TYPE: Emergency COMPLAINT: - VOMITING BLOOD 07/21/2024 00:59 [place]A [place] TYPE: Emergency COMPLAINT: - RECTAL BLEEDING DIAGNOSES: - Hemorrhage of anus and rectum - group home (current) use of insulin - Lower abdominal pain, unspecified - Nicotine dependence, unspecified, uncomplicated - Other snf (current) 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 - Type 1 diabetes mellitus without complications 07/10/2024 18:08 Catherine Boo [place] TYPE: Emergency COMPLAINT: - HEMATEMESIS - Vomiting_VOMITTING BLOOD DIAGNOSES: 0. Hematemesis 1. Gastrointestinal hemorrhage, unspecified 3. Nicotine dependence, cigarettes, uncomplicated 07/07/2024 15:49 [place]A [place] TYPE: Emergency COMPLAINT: - VOMITING BLOOD, ABD PAIN, H/C SWEATS DIAGNOSES: - Hematemesis - group home (current) use of insulin - Nicotine dependence, unspecified, uncomplicated - Other snf (current) 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 - Type 1 diabetes mellitus without complications 06/23/2024 14:14 NORA [place] TYPE: Emergency COMPLAINT: - ABDOMINAL PAIN DIAGNOSES: - Alcoholic liver disease, unspecified - Gastrointestinal hemorrhage, unspecified - Hematemesis - group home (current) use of insulin - Nicotine dependence, unspecified, uncomplicated - Other marine oil terminal superintendent (current) 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 - Secondary esophageal varices without bleeding - Type 1 diabetes mellitus without complications 06/21/2024 12:09 NORA [place] TYPE: Emergency COMPLAINT: - ABDOMINAL PAIN DIAGNOSES: - Alcoholic cirrhosis of liver without ascites - Gastrointestinal hemorrhage, unspecified - Lower abdominal pain, unspecified - Nicotine dependence, unspecified, uncomplicated - Other marine oil terminal superintendent (current) 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 - Secondary esophageal varices without bleeding - Thrombocytopenia, unspecified - Type 1 diabetes mellitus without complications 06/14/2024 07:35 NORA [place] TYPE: Emergency COMPLAINT: - SKIN PROBLEM DIAGNOSES: - Chronic hepatic failure without coma - Cutaneous abscess of face - termite exterminator (current) use of insulin - Nicotine dependence, unspecified, uncomplicated - Other marine oil terminal superintendent (current) 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 - Type 1 diabetes mellitus without complications 12/01/2023 02:01 NORA [place] TYPE: Emergency COMPLAINT: - VOMITING BLOOD DIAGNOSES: - Alcoholic cirrhosis of liver without ascites - Epigastric pain - termite exterminator (current) use of insulin - Nicotine dependence, unspecified, uncomplicated - Other snf (current) 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 - Secondary esophageal varices [...] - Nicotine dependence, unspecified, uncomplicated - Other marine oil terminal superintendent (current) 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 - Strain of muscle, fascia and tendon at neck level, initial encounter - Type 2 diabetes mellitus without complications - Unspecified intracranial injury with loss of consciousness of unspecified duration, initial encounter 09/21/2023 17:01 NORA [place] TYPE: Emergency COMPLAINT: - MOUTH PAIN DIAGNOSES: - Jaw pain - group home (current) use of insulin - Nicotine dependence, unspecified, uncomplicated - Other acute postprocedural pain - Other marine oil terminal superintendent (current) 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 - Other specified postprocedural states - Type 2 diabetes mellitus without complications 08/10/2023 12:19 NORA [place]rena [place] TYPE: Emergency COMPLAINT: - VOMITING BLOOD DIAGNOSES: - Alcohol abuse, uncomplicated - Decreased white blood cell count, unspecified - Hematemesis - termite exterminator (current) use of insulin - Nicotine dependence, unspecified, uncomplicated - Other marine oil terminal superintendent (current) 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 - Secondary esophageal varices without bleeding - Thrombocytopenia, unspecified - Type 2 diabetes mellitus without complications - Unspecified cirrhosis of liver 08/09/2023 13:48 NORA C[place] TYPE: Emergency COMPLAINT: - MOUTH PAIN DIAGNOSES: - termite exterminator (current) use of insulin - Nicotine dependence, unspecified, uncomplicated - Other snf (current) 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 - Other specified disorders of teeth and supporting structures - Type 2 diabetes mellitus without complications INPATIENT VISIT TRACKING (12 MO.) 07/11/2024 07:24 [facility] [place] TYPE: Internal Medicine DIAGNOSES: - Hematemesis - GI Bleed [id number]
[2024-08-01] MEDS ORDERED: ondansetron HCL 4 MG/2 ML VIAL IV ONE (10:15)
[2024-08-01] MEDS ORDERED: HYDROmorphone HCL 1 MG/ML SYR IV PRN ×2 (10:15→10:30)
[2024-08-01] MEDS ORDERED: PANTOPRAZOLE SODIUM 40 MG/10 ML VIAL IV ONE (10:15)
[2024-08-01 10:17] LABS: EOSINOPHILS 2.4 % (0-6); HEMATOCRIT 44.3 % (35.0-50.0); LYMPHOCYTES 20.5 % (24-44); MCH 30.1 (27-36); MCHC 33.8 g/dl (30-36); MCV 89.2 fl (81-99); MONOCYTES 6.1 % (0-12); PLATELET COUNT 53 K/uL (140-440); RBC 4.97 M/ul (4.3-5.7); RDW 14.1 (10.5-15.0)
[2024-08-01 10:24] LABS: INR 1.08 (0.80-1.30); PROTIME 13.9 Sec (11.2-14.2)
[2024-08-01 10:26] LABS: PARTIAL THROMBOPLASTIN TIME 26.7 Sec (22.9-41.3)
[2024-08-01 10:30] LABS: ALBUMIN/GLOBULIN RATIO 1.21 (1.1-2.4); ANION GAP 12.1 (7-21); BILIRUBIN, TOTAL 1.3 ng/dL (0.2-1.0); BUN/CREATININE RATIO 12.5 (6.0-28.6); CALCIUM 8.8 mg/dL (8.5-10.1); CREATININE, SERUM 0.8 mg/dL (0.70-1.30); POTASSIUM 4.1 mmol/L (3.5-5.1); PROTEIN, TOTAL 7.3 g/dL (6.4-8.2)
[2024-08-01 10:49] LABS: ABO O; RH POSITIVE
[2024-08-01 10:50] LABS: ANTIBODY SCREEN NEGATIVE
[2024-08-01 12:09] VITALS: BP 133/87
== END 2024-08-01 12:10 | disposition home or self-care (01) ==
LOC: ED 09:41
PROVIDERS: Emergency Medicine
DX: K92.0 Hematemesis (principal); E10.9 Type 1 diabetes mellitus without complications; F17.200 Nicotine dependence, unspecified, uncomplicated; Z79.4 Long term (current) use of insulin; Z79.899 Other long term (current) 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
CPT/HCPCS: 36415; 80053; 85025; 85610; 85730; 86850; 86900; 86901; 96374; 96375; 96376; 99284-25; J1171; J2405; J2470

== ENCOUNTER 2024-08-11 09:13 | Emergency (ER) | payer OTHER ==
[~2024-08-11] VITALS: Ht 182.9 cm; Wt 86.6 kg
--- OUTSIDE RECORDS SUMMARY | 2024-08-11 09:19 | XMS ---
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 RAI Security Water Hauler Events No recent Security Events currently on file CRITERIA MET - 6 ED Visits in [address] - [facility] - 2 Visits in 30 Days CARE PROVIDERS Tamica Westbrook Machine Adjuster Leader/Business Services Tech 07/13/2024-Current PHONE: [phone] MEJIA RAMOS Internal Medicine 08/10/2023-Current PHONE: [phone] ZACKERY SORTO Nurse Practitioner: 10/14/2021-Current PHONE: [phone] -[facility] Dentist: Conference Concierge Parminder Alves PHONE: [phone] -, [place]- Dentist: Conference Concierge Current [facility] PHONE: [phone] -[place]- Dentist: Conference Concierge Current [facility] PHONE: [phone] SH[facility]ILA [facility] Pediatrics Current CARE SYSTEM \[facility] PHONE: [phone] DALY SILVA [facility] Current PHONE: Unknown Matty has no Care Guidelines for this patient. Sina VISIT COUNT (12 MO.) 10 NORA Upton TOTAL 11 NOTE: Visits indicate total known visits. ED/UCC VISIT TRACKING (12 MO.) 08/11/2024 09:13 NORA [place]rena [place] TYPE: Emergency COMPLAINT: - VOMITING 08/01/2024 09:42 NORA [place]rena [place] TYPE: Emergency COMPLAINT: - VOMITING BLOOD DIAGNOSES: - Hematemesis - buttermaker helper (current) use of insulin - Nicotine dependence, unspecified, uncomplicated - Other nursing home (current) 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 - Type 1 diabetes mellitus without complications 07/21/2024 00:59 NORA C[place]rena [place] TYPE: Emergency COMPLAINT: - RECTAL BLEEDING DIAGNOSES: - Hemorrhage of anus and rectum - buttermaker helper (current) use of insulin - Lower abdominal pain, unspecified - Nicotine dependence, unspecified, uncomplicated - Other buttermaker (current) 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 - Type 1 diabetes mellitus without complications [facility]10[facility]2024 18[facility] [place] [facility] COMPLAINT: - HEMATEMESIS - Vomiting_VOMITTING BLOOD DIAGNOSES: 0. Hematemesis 1. Gastrointestinal hemorrhage, unspecified 3. Nicotine dependence, cigarettes, uncomplicated 07/07/2024 15:49 NORA [place]rena [place] TYPE: Emergency COMPLAINT: - VOMITING BLOOD, ABD PAIN, H/C SWEATS DIAGNOSES: - Hematemesis - care home (current) use of insulin - Nicotine dependence, unspecified, uncomplicated - Other nursing home (current) 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 - Type 1 diabetes mellitus without complications 06/23/2024 14:14 NORA [place] TYPE: Emergency COMPLAINT: - ABDOMINAL PAIN DIAGNOSES: - Alcoholic liver disease, unspecified - Gastrointestinal hemorrhage, unspecified - Hematemesis - care home (current) use of insulin - Nicotine dependence, unspecified, uncomplicated - Other buttermaker (current) 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 - Secondary esophageal varices without bleeding - Type 1 diabetes mellitus without complications 06/21/2024 12:09 NORA [place] TYPE: Emergency COMPLAINT: - ABDOMINAL PAIN DIAGNOSES: - Alcoholic cirrhosis of liver without ascites - Gastrointestinal hemorrhage, unspecified - Lower abdominal pain, unspecified - Nicotine dependence, unspecified, uncomplicated - Other buttermaker (current) 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 - Secondary esophageal varices without bleeding - Thrombocytopenia, unspecified - Type 1 diabetes mellitus without complications 06/14/2024 07:35 NORA [place]rena [place] TYPE: Emergency COMPLAINT: - SKIN PROBLEM DIAGNOSES: - Chronic hepatic failure without coma - Cutaneous abscess of face - care home (current) use of insulin - Nicotine dependence, unspecified, uncomplicated - Other buttermaker (current) 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 - Type 1 diabetes mellitus without complications 12/01/2023 02:01 NORA [place] TYPE: Emergency COMPLAINT: - VOMITING BLOOD DIAGNOSES: - Alcoholic cirrhosis of liver without ascites - Epigastric pain - care home (current) use of insulin - Nicotine dependence, unspecified, uncomplicated - Other buttermaker (current) 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 - Secondary esophageal varices with bleeding - Type 2 diabetes mellitus without complications 11/20/2023 15:05 [facility] [place] Alves [place] TYPE: Emergency COMPLAINT: - FELL HURT RIBS DIAGNOSES: - Contusion of right front wall of thorax, initial encounter - Contusion of right shoulder, initial encounter - Contusion of right wrist, initial encounter - Dizziness and giddiness - Fall on same level from slipping, tripping and stumbling with subsequent striking against unspecified object, initial encounter - buttermaker helper (current) use of insulin - Nicotine dependence, unspecified, uncomplicated - Other nursing home (current) 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 - Strain of muscle, fascia and tendon at neck level, initial encounter - Type 2 diabetes mellitus without complications - Unspecified intracranial injury with loss of consciousness of unspecified duration, initial encounter 09/21/2023 17:01 NORA Gibson TYPE: Emergency COMPLAINT: - MOUTH PAIN DIAGNOSES: - Jaw pain - buttermaker helper (current) use of insulin - Nicotine dependence, unspecified, uncomplicated - Other acute postprocedural pain - Other nursing home (current) 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 - Other specified postprocedural states - Type 2 diabetes mellitus without complications INPATIENT VISIT TRACKING (12 MO.) 07/11/2024 07:24 [facility] TYPE: Internal Medicine DIAGNOSES: - Hematemesis - GI Bleed [email or web address]
[2024-08-11] MEDS ORDERED: LUBIPROSTONE24 MCG PO (09:39)
[2024-08-11 09:42] LABS: BASOPHILS 1.3 % (0-2); EOSINOPHILS 3.3 % (0-6); HEMATOCRIT 46.1 % (35.0-50.0); HEMOGLOBIN 15.7 g/dL (12.0-18.0); LYMPHOCYTES 25.6 % (24-44); MCH 30.5 (27-36); MCV 89.5 fl (81-99); MONOCYTES 9.2 % (0-12); NEUTROPHILS 60.6 % (39-80); PLATELET COUNT 55 K/uL (140-440); RBC 5.16 M/ul (4.3-5.7); RDW 14.2 (10.5-15.0)
[2024-08-11 09:54] LABS: ALBUMIN 4.3 g/dL (3.4-5.0); ALBUMIN/GLOBULIN RATIO 1.39 (1.1-2.4); ANION GAP 14.1 (7-21); BILIRUBIN, TOTAL 0.8 ng/dL (0.2-1.0); BUN/CREATININE RATIO 10.86 (6.0-28.6); CALCIUM 9.4 mg/dL (8.5-10.1); CREATININE, SERUM 0.92 mg/dL (0.70-1.30); POTASSIUM 4.1 mmol/L (3.5-5.1); PROTEIN, TOTAL 7.4 g/dL (6.4-8.2)
[2024-08-11] MEDS ORDERED: ondansetron HCL 4 MG/2 ML VIAL IV PRN (10:00)
[2024-08-11] MEDS ORDERED: HYDROmorphone HCL 1 MG/ML SYR IV ONE (10:30)
[2024-08-11] MEDS ORDERED: ONDANSETRON ODT4 MG PO (11:15)
[2024-08-11] MEDS ORDERED: OXYCODONE HCL5 MG PO (12:58)
[2024-08-11 15:17] VITALS: BP 153/95
== END 2024-08-11 13:06 | disposition home or self-care (01) ==
LOC: ED 09:13
PROVIDERS: Emergency Medicine
DX: K92.0 Hematemesis (principal); K74.60 Unspecified cirrhosis of liver; I85.11 Secondary esophageal varices with bleeding; E10.9 Type 1 diabetes mellitus without complications; F17.200 Nicotine dependence, unspecified, uncomplicated; Z79.4 Long term (current) use of insulin; Z79.899 Other long term (current) 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
CPT/HCPCS: 36415; 80053; 85025; 96374; 96375; 96376; 99284-25; J1171; J2405

== ENCOUNTER 2024-09-22 11:01 | Emergency (ER) | payer OTHER ==
[~2024-09-22] VITALS: Ht 182.9 cm; Wt 88.9 kg
[~2024-09-22 11:01] MED LIST changes: +LUBIPROSTONE24 MCG PO
--- OUTSIDE RECORDS SUMMARY | 2024-09-22 11:08 | XMS ---
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 PHONE: [phone] -[place]- Dentist: Pleater [facility] PHONE: [phone] [facility] Pediatrics Current CARE SYSTEM \F\ <UNAVAIL> PHONE: [phone] DALY SILVA [facility] Current PHONE: Unknown Matty has no Care Guidelines for this patient. E.D. VISIT COUNT (12 MO.) 10 NORA Thompsonmary Kennedyharish [place] TOTAL 11 NOTE: Visits indicate total known visits. ED/UCC VISIT TRACKING (12 MO.) 09/22/2024 11:01 [place]A [place] TYPE: Emergency COMPLAINT: - ABDOMINAL PAIN 08/11/2024 09:13 ONRA Gibson TYPE: Emergency COMPLAINT: - VOMITING DIAGNOSES: - Hematemesis - buttermilk drier operator (current) use of insulin - Nicotine dependence, unspecified, uncomplicated - Other local intermodal truck driver (current) 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 - Secondary esophageal varices with bleeding - Type 1 diabetes mellitus without complications - Unspecified cirrhosis of liver 08/01/2024 09:42 NORA Gibson TYPE: Emergency COMPLAINT: - VOMITING BLOOD DIAGNOSES: - Hematemesis - buttermilk drier operator (current) use of insulin - Nicotine dependence, unspecified, uncomplicated - Other local intermodal truck driver (current) 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 - Type 1 diabetes mellitus without complications 07/21/2024 00:59 NORA Gibson TYPE: Emergency COMPLAINT: - RECTAL BLEEDING DIAGNOSES: - Hemorrhage of anus and rectum - residential (current) use of insulin - Lower abdominal pain, unspecified - Nicotine dependence, unspecified, uncomplicated - Other local intermodal truck driver (current) 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 - Type 1 diabetes mellitus without complications 07/10/2024 18:08 Catherine NAVARRETE TYPE: Emergency COMPLAINT: - HEMATEMESIS - Vomiting_VOMITTING BLOOD DIAGNOSES: 0. Hematemesis 1. Gastrointestinal hemorrhage, unspecified 3. Nicotine dependence, cigarettes, uncomplicated 07/07/2024 15:[address] [facility] [address] [facility] [place] TYPE: Emergency COMPLAINT: - VOMITING BLOOD, ABD PAIN, H/C SWEATS DIAGNOSES: - Hematemesis - buttermilk drier operator (current) use of insulin - Nicotine dependence, unspecified, uncomplicated - Other fpc (current) 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 - Type 1 diabetes mellitus without complications 06/23/2024 14:14 NORA [place] TYPE: Emergency COMPLAINT: - ABDOMINAL PAIN DIAGNOSES: - Alcoholic liver disease, unspecified - Gastrointestinal hemorrhage, unspecified - Hematemesis - buttermilk drier operator (current) use of insulin - Nicotine dependence, unspecified, uncomplicated - Other local intermodal truck driver (current) 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 - Secondary esophageal varices without bleeding - Type 1 diabetes mellitus without complications 06/21/2024 12:09 [place] TYPE: Emergency COMPLAINT: - ABDOMINAL PAIN DIAGNOSES: - Alcoholic cirrhosis of liver without ascites - Gastrointestinal hemorrhage, unspecified - Lower abdominal pain, unspecified - Nicotine dependence, unspecified, uncomplicated - Other local intermodal truck driver (current) 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 - Secondary esophageal varices without bleeding - Thrombocytopenia, unspecified - Type 1 diabetes mellitus without complications 06/14/2024 07:35 [place] TYPE: Emergency COMPLAINT: - SKIN PROBLEM DIAGNOSES: - Chronic hepatic failure without coma - Cutaneous abscess of face - residential (current) use of insulin - Nicotine dependence, unspecified, uncomplicated - Other local intermodal truck driver (current) 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 - Type 1 diabetes mellitus without complications 12/01/2023 02:01 [place]A [place] TYPE: Emergency COMPLAINT: - VOMITING BLOOD DIAGNOSES: - Alcoholic cirrhosis of liver without ascites - Epigastric pain - residential (current) use of insulin - Nicotine dependence, unspecified, uncomplicated - Other fpc (current) 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 - Secondary esophageal varices [...] striking against unspecified object, initial encounter - residential (current) use of insulin - Nicotine dependence, unspecified, uncomplicated - Other local intermodal truck driver (current) 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 - Strain of muscle, fascia and tendon at neck level, initial encounter - Type 2 diabetes mellitus without complications - Unspecified intracranial injury with loss of consciousness of unspecified duration, initial encounter INPATIENT VISIT TRACKING (12 MO.) 07/11/2024 07:24 [facility] TYPE: Internal Medicine DIAGNOSES: - Hematemesis - GI Bleed [id number]
[2024-09-22] MEDS ORDERED: SODIUM CHLORIDE 0.9% 1,000 ML IV PRN (13:00)
[2024-09-22] MEDS ORDERED: metroNIDAZOLE/SODIUM CHLORIDE 500 MG/100 ML PIGGYBACK IV ONE (13:00)
[2024-09-22 13:27] LABS: BASOPHILS 0.8 % (0-2); BILIRUBIN, URINE NEGATIVE (negative); BLOOD/HGB, URINE NEGATIVE (Negative); EOSINOPHILS 4.4 % (0-6); HEMATOCRIT 40.9 % (35.0-50.0); HEMOGLOBIN 14.3 g/dL (12.0-18.0); KETONE, URINE TRACE (Negative); LEUK ESTERASE, URINE NEGATIVE (negative); LYMPHOCYTES 22.1 % (24-44); MCH 30.6 (27-36); MCV 87.5 fl (81-99); MONOCYTES 7.8 % (0-12); NEUTROPHILS 64.9 % (39-80); NITRITE, URINE NEGATIVE (negative); RBC 4.68 M/ul (4.3-5.7); RDW 14.3 (10.5-15.0)
[2024-09-22 13:32] LABS: BACTERIA, URINE NONE SEEN /hpf (negative); CASTS, URINE NONE SEEN \\lpf; CRYSTALS, URINE NONE SEEN (0-1+); EPITHELIAL CELLS, URINE NONE SEEN /lpf (0-1+); RED BLOOD CELLS, URINE 0-1 /hpf (0-5); WHITE BLOOD CELLS, URINE 0-1 /HPF (0-5)
[2024-09-22 13:33] LABS: COLLECTION TYPE, URINE CLEAN CATCH; REFLEX CULTURE, URINE No (No)
[2024-09-22 13:42] LABS: ALBUMIN 4.1 g/dL (3.4-5.0); ALBUMIN/GLOBULIN RATIO 1.58 (1.1-2.4); BILIRUBIN, TOTAL 1.2 mg/dL (0.2-1.0); BUN/CREATININE RATIO 22.64 (6.0-28.6); CREATININE, SERUM 0.53 mg/dL (0.70-1.30); PROTEIN, TOTAL 6.7 g/dL (6.4-8.2)
[2024-09-22 13:44] LABS: PLATELET COUNT 37 K/uL (140-440)
[2024-09-22] MEDS ORDERED: CEFAZOLIN SODIUM 2 GM/20 ML SYR IV SCH (14:00)
[2024-09-22] MEDS ORDERED: MORPHINE SULFATE 4 MG/ML VIAL IV ONE (14:30)
[2024-09-22] MEDS ORDERED: ondansetron HCL 4 MG/2 ML VIAL IV ONE (14:30)
[2024-09-22 15:40] VITALS: BP 140/79
[2024-09-22] MEDS ORDERED: HYDROCODON-ACE1 EA10 PO (15:45)
--- NOTE | 2024-09-24 15:48 | EKG ---
[facility] [address] [place] [address] Signed Normal sinus rhythm Normal ECG When compared with ECG of 01-DEC-2023 03:36, No significant change was found Confirmed by Philip Gilman DO ([id number]) on 09/24/2024 3:48:04 PM Electronically Signed By: PHILIP GILMAN DO 09/24/24 1548 PATIENT NAME: CECELIAOLIVEFEIFLOYD HOWARD Electrocardiogram DATE OF : 79 PHYSICIAN: PHILIP GILMAN DO REPORT #: [id number] REPORT IS CONFIDENTIAL AND NOT TO BE RELEASED WITHOUT AUTHORIZATION
== END 2024-09-22 15:40 | disposition home or self-care (01) ==
LOC: ED 11:01
PROVIDERS: Emergency Medicine
DX: R10.9 Unspecified abdominal pain (principal); R23.3 Spontaneous ecchymoses; E10.9 Type 1 diabetes mellitus without complications; F17.200 Nicotine dependence, unspecified, uncomplicated; Z79.899 Other long term (current) 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; Z79.4 Long term (current) use of insulin
CPT/HCPCS: 36415; 74177; 80053; 81001; 83690; 85025; 85060; 93005; 93010; 96375; 99284-25; J2270; J2405

== ENCOUNTER 2024-10-10 08:32 | Emergency (ER) | payer OTHER ==
[~2024-10-10] VITALS: Ht 182.9 cm; Wt 97.1 kg
[~2024-10-10 08:32] MED LIST changes: +HYDROCODON-ACE1 EA10 PO
--- OUTSIDE RECORDS SUMMARY | 2024-10-10 08:38 | XMS ---
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 Events No recent Security Events currently on file CRITERIA MET - 6 ED Visits in 6 Months - [facility] - 2 Visits in 30 Days CARE PROVIDERS Tamica Westbrook Associate Curator/Ed Case Manager 07/13/2024-Current PHONE: [phone] MEJIA RAMOS Internal Medicine 08/10/2023-Current PHONE: [phone] ZACKERY SORTO Nurse Practitioner: 10/14/2021-Current PHONE: [phone] -[facility] Dentist: Forest Supervisor Parminder Alves PHONE: [phone] -[place]- Dentist: Forest Supervisor [facility] PHONE: [phone] -[place]- Dentist: Forest Supervisor [facility] PHONE: [phone] [facility] Current CARE SYSTEM \F\ <UNAVAIL> PHONE: [phone] DALY SILVA [facility] Current PHONE: Unknown Matty has no Care Guidelines for this patient. E.D. VISIT COUNT (12 MO.) 11 NORA Thompsonmary Kennedyharish [place] TOTAL 12 NOTE: Visits indicate total known visits. ED/UCC VISIT TRACKING (12 MO.) 10/10/2024 08:32 [place] TYPE: Emergency COMPLAINT: - ABDOMINAL PAIN 09/22/2024 11:01 [place] TYPE: Emergency COMPLAINT: - ABDOMINAL PAIN DIAGNOSES: - alf (current) use of insulin - Nicotine dependence, unspecified, uncomplicated - Other shelter (current) 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 - Spontaneous ecchymoses - Type 1 diabetes mellitus without complications - Unspecified abdominal pain 08/11/2024 09:13 [place] TYPE: Emergency COMPLAINT: - VOMITING DIAGNOSES: - Hematemesis - alf (current) use of insulin - Nicotine dependence, unspecified, uncomplicated - Other middle or intermediate school principal (current) 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 - Secondary esophageal varices with bleeding - Type 1 diabetes mellitus without complications - Unspecified cirrhosis of liver 08/01/2024 09:42 [place] [place] TYPE: Emergency COMPLAINT: - VOMITING BLOOD DIAGNOSES: - Hematemesis - alf (current) use of insulin - Nicotine dependence, unspecified, uncomplicated - Other shelter (current) 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 - Type 1 diabetes mellitus without complications 07/21/2024 00:59 [place] [place] TYPE: Emergency COMPLAINT: - RECTAL BLEEDING DIAGNOSES: - Hemorrhage of anus and rectum - middle or intermediate school principal (current) use of insulin - Lower abdominal pain, unspecified - Nicotine dependence, unspecified, uncomplicated - Other shelter (current) 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 - Type 1 diabetes mellitus without complications 07/10/2024 18:08 Catherine [facility] TYPE: Emergency COMPLAINT: - HEMATEMESIS - Vomiting_VOMITTING BLOOD DIAGNOSES: 0. Hematemesis 1. Gastrointestinal hemorrhage, unspecified 3. Nicotine dependence, cigarettes, uncomplicated 07/07/2024 15:49 [place] [place] TYPE: Emergency COMPLAINT: - VOMITING BLOOD, ABD PAIN, H/C SWEATS DIAGNOSES: - Hematemesis - alf (current) use of insulin - Nicotine dependence, unspecified, uncomplicated - Other middle or intermediate school principal (current) 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 - Type 1 diabetes mellitus without complications 06/23/2024 14:14 NORA Gibson TYPE: Emergency COMPLAINT: - ABDOMINAL PAIN DIAGNOSES: - Alcoholic liver disease, unspecified - Gastrointestinal hemorrhage, unspecified - Hematemesis - alf (current) use of insulin - Nicotine dependence, unspecified, uncomplicated - Other shelter (current) 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 - Secondary esophageal varices without bleeding - Type 1 diabetes mellitus without complications 06/21/2024 12:[address] [facility] [place] TYPE: Emergency COMPLAINT: - ABDOMINAL PAIN DIAGNOSES: - Alcoholic cirrhosis of liver without ascites - Gastrointestinal hemorrhage, unspecified - Lower abdominal pain, unspecified - Nicotine dependence, unspecified, uncomplicated - Other shelter (current) 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 - Secondary esophageal varices without bleeding - Thrombocytopenia, unspecified - Type 1 diabetes mellitus without complications 06/14/2024 07:35 [place] [place] TYPE: Emergency COMPLAINT: - SKIN PROBLEM DIAGNOSES: - Chronic hepatic failure without coma - Cutaneous abscess of face - alf (current) use of insulin - Nicotine dependence, unspecified, uncomplicated - Other shelter (current) 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 - Type 1 diabetes mellitus without complications 12/01/2023 02:01 [place] TYPE: Emergency COMPLAINT: - VOMITING BLOOD DIAGNOSES: - Alcoholic cirrhosis of liver without ascites - Epigastric pain - middle or intermediate school principal (current) use of insulin - Nicotine dependence, unspecified, uncomplicated - Other shelter (current) 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 - Secondary esophageal varices with bleeding - Type 2 diabetes mellitus without complications 11/20/2023 15:05 NORA Gibson TYPE: Emergency COMPLAINT: - FELL HURT RIBS DIAGNOSES: - Contusion of right front wall of thorax, initial encounter - Contusion of right shoulder, initial encounter - Contusion of right wrist, initial encounter - Dizziness and giddiness - Fall on same level from slipping, tripping and stumbling with subsequent striking against unspecified object, initial encounter - alf (current) use of insulin - Nicotine dependence, unspecified, uncomplicated - Other shelter (current) 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 - Strain of muscle, fascia and tendon at neck level, initial encounter - Type 2 diabetes mellitus without complications - Unspecified intracranial injury with loss of consciousness of unspecified duration, initial encounter INPATIENT VISIT TRACKING (12 MO.) 07/11/2024 07:24 [facility] TYPE: Internal Medicine DIAGNOSES: - Hematemesis - GI Bleed [email or web address]
[2024-10-10 09:48] LABS: BASOPHILS 0.4 % (0-2); EOSINOPHILS 1.5 % (0-6); HEMATOCRIT 39.2 % (35.0-50.0); HEMOGLOBIN 13.6 g/dL (12.0-18.0); LYMPHOCYTES 12.2 % (24-44); MCH 30.4 (27-36); MCHC 34.8 g/dl (30-36); MCV 87.4 fl (81-99); MONOCYTES 7.5 % (0-12); NEUTROPHILS 78.4 % (39-80); RBC 4.48 M/ul (4.3-5.7); RDW 14.9 (10.5-15.0)
[2024-10-10 09:54] LABS: ALBUMIN 3.9 g/dL (3.4-5.0); ALBUMIN/GLOBULIN RATIO 1.56 (1.1-2.4); ANION GAP 13.1 (7-21); BILIRUBIN, TOTAL 1.4 mg/dL (0.2-1.0); BUN/CREATININE RATIO 10.52 (6.0-28.6); CALCIUM 8.7 mg/dL (8.5-10.1); CREATININE, SERUM 0.57 mg/dL (0.70-1.30); POTASSIUM 4.1 mmol/L (3.5-5.1); PROTEIN, TOTAL 6.4 g/dL (6.4-8.2)
[2024-10-10 10:06] LABS: PLATELET COUNT 6 K/uL (140-440)
[2024-10-10] MEDS ORDERED: ASPIRIN 81 MG CHEW ONE (10:10)
[2024-10-10 10:20] LABS: INR 1.16 (0.80-1.30); PROTIME 14.7 Sec (11.2-14.2)
[2024-10-10] MEDS ORDERED: ondansetron HCL 4 MG/2 ML VIAL IV ONE ×2 (10:30→15:00)
[2024-10-10] MEDS ORDERED: HYDROmorphone HCL 1 MG/ML SYR IV ONE (10:30)
[2024-10-10] MEDS ORDERED: SODIUM CHLORIDE 0.9% 1,000 ML IV PRN (10:30)
[2024-10-10 10:48] LABS: ABO O; ANTIBODY SCREEN NEGATIVE; RH POSITIVE
[2024-10-10 11:48] LABS: BILIRUBIN, URINE NEGATIVE (negative); BLOOD/HGB, URINE NEGATIVE (Negative); KETONE, URINE NEGATIVE (Negative); LEUK ESTERASE, URINE NEGATIVE (negative); NITRITE, URINE NEGATIVE (negative)
[2024-10-10] MEDS ORDERED: HYDROmorphone HCL 1 MG/ML SYR IV PRN (12:45)
[2024-10-10] MEDS ORDERED: PANTOPRAZOLE SODIUM 40 MG/10 ML VIAL IV ONE (14:45)
[2024-10-10] MEDS ORDERED: OCTREOTIDE ACETATE 100 MCG/ML VIAL IV ONE (14:45)
[2024-10-10] MEDS ORDERED: levETIRAcetam 500 MG/5 ML VIAL IV ONE (15:00)
[2024-10-10] MEDS ORDERED: SODIUM CHLORIDE 0.9% IV SCH (18:00)
[2024-10-10] MEDS ORDERED: OCTREOTIDE ACETATE IV SCH (18:00)
[2024-10-10] MEDS ORDERED: MORPHINE SULFATE 10 MG/ML VIAL IV ONE (18:15)
[2024-10-10 19:06] VITALS: BP 140/71
== END 2024-10-10 18:55 | disposition short-term general hospital (02) ==
LOC: ED 08:32
PROVIDERS: Emergency Medicine
DX: K92.2 Gastrointestinal hemorrhage, unspecified (principal); E10.9 Type 1 diabetes mellitus without complications; F17.200 Nicotine dependence, unspecified, uncomplicated; Z79.4 Long term (current) use of insulin; Z79.899 Other long term (current) 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
CPT/HCPCS: 36415; 36430; 74177; 80053; 81003; 82140; 83690; 85025; 85060; 85610; 86850; 86900; 86901; 96375; 96376; 99285-25; J1171; J2270; J2354-JA; J2405; J2470; J7030; J7050; P9035; P9073; Q9967

== ENCOUNTER 2024-10-21 07:15 | Emergency (ER) | payer OTHER ==
[~2024-10-21] VITALS: Ht 182.9 cm; Wt 88.0 kg
--- OUTSIDE RECORDS SUMMARY | ~2024-10-21 | XMS | Continuity of Care Document ---
Demographics + + + | Address | [address] | | | [place] [address] | + + + | Preferred Language | Unknown | + + + | Marital Status | Unknown | + + + | Episcopal Affiliation | Unknown | + + + | Race | White | + + + | Ethnic Group | Not or | + + + Author + + + | Author | [facility] | + + + | Organization | [facility] | + + + | Address | [address] | | | [place] [address] | + + + | Phone | | + + + Care Team Providers + + + + | Care Principal Research Economist Name | Role | Phone | + [...]
--- OUTSIDE RECORDS SUMMARY | 2024-10-21 07:20 | XMS ---
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 RAI Security Psychologist Research Assistant Events No recent Security Events currently on file CRITERIA MET - 6 ED Visits in [address] Months - [facility] - 2 Visits in 30 Days CARE PROVIDERS MEJIA RAMOS Internal Medicine 08/10/2023-Current PHONE: [phone] ZACKERY SORTO Nurse Practitioner: 10/14/2021-Current PHONE: [phone] -[facility] Dentist: Reducing Machine Operator [facility] PHONE: [phone] -[place]- Dentist: Reducing Machine Operator Current [facility] PHONE: [phone] -[place]- Dentist: Reducing Machine Operator [facility] PHONE: [phone] SHAKILA [facility] Current CARE SYSTEM \F\ <UNAVAIL> PHONE: [phone] DALY SILVA [facility] Current PHONE: Unknown Tamica Westbrook Certified Wellness Program Coordinator/Bisque Finisher Current PHONE: [phone] Matty has no Care Guidelines for this patient. E.D. VISIT COUNT (12 MO.) NORA Upton TOTAL 13 NOTE: Visits indicate total known visits. ED/UCC VISIT TRACKING (12 MO.) 10/21/2024 07:15 [place] TYPE: Emergency COMPLAINT: - ABDOMINAL PAIN 10/10/2024 08:32 [place] [place] TYPE: Emergency COMPLAINT: - ABDOMINAL PAIN DIAGNOSES: - Gastrointestinal hemorrhage, unspecified - Hemorrhage of anus and rectum - stroboroma operator (current) use of insulin - Nicotine dependence, unspecified, uncomplicated - Other penitentiary (current) 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 - Type 1 diabetes mellitus without complications 09/22/2024 11:01 [place] TYPE: Emergency COMPLAINT: - ABDOMINAL PAIN DIAGNOSES: - intermediate (current) use of insulin - Nicotine dependence, unspecified, uncomplicated - Other biochemical engineer (current) 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 - Spontaneous ecchymoses - Type 1 diabetes mellitus without complications - Unspecified abdominal pain 08/11/2024 09:13 [place] TYPE: Emergency COMPLAINT: - VOMITING DIAGNOSES: - Hematemesis - intermediate (current) use of insulin - Nicotine dependence, unspecified, uncomplicated - Other penitentiary (current) 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 - Secondary esophageal varices with bleeding - Type 1 diabetes mellitus without complications - Unspecified cirrhosis of liver 08/01/2024 09:42 [place] TYPE: Emergency COMPLAINT: - VOMITING BLOOD DIAGNOSES: - Hematemesis - stroboroma operator (current) use of insulin - Nicotine dependence, unspecified, uncomplicated - Other penitentiary (current) 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 - Type 1 diabetes mellitus without complications 07/21/2024 00:59 [place] TYPE: Emergency COMPLAINT: - RECTAL BLEEDING DIAGNOSES: - Hemorrhage of anus and rectum - intermediate (current) use of insulin - Lower abdominal pain, unspecified - Nicotine dependence, unspecified, uncomplicated - Other penitentiary (current) 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 - Type 1 diabetes mellitus without complications 07/10/2024 18:08 [facility] TYPE: Emergency COMPLAINT: - HEMATEMESIS - Vomiting_VOMITTING BLOOD DIAGNOSES: 0. Hematemesis 1. Gastrointestinal hemorrhage, unspecified 3. Nicotine dependence, cigarettes, uncomplicated 07/07/2024 15:49 [place] TYPE: Emergency COMPLAINT: - VOMITING BLOOD, ABD PAIN, H/C SWEATS DIAGNOSES: - Hematemesis - stroboroma operator (current) use of insulin - Nicotine dependence, unspecified, uncomplicated - Other penitentiary (current) 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 - Type 1 diabetes mellitus without complications 06/23/2024 14:14 [place] TYPE: Emergency COMPLAINT: - ABDOMINAL PAIN DIAGNOSES: - Alcoholic liver disease, unspecified - Gastrointestinal hemorrhage, unspecified - Hematemesis - stroboroma operator (current) use of insulin - Nicotine dependence, unspecified, uncomplicated - Other biochemical engineer (current) 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 - Secondary esophageal varices without bleeding - Type 1 diabetes mellitus without complications 06/21/2024 12:09 [facility] [place] TYPE: Emergency COMPLAINT: - ABDOMINAL PAIN DIAGNOSES: - Alcoholic cirrhosis of liver without ascites - Gastrointestinal hemorrhage, unspecified - Lower abdominal pain, unspecified - Nicotine dependence, unspecified, uncomplicated - Other biochemical engineer (current) 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 - Secondary esophageal varices without bleeding - Thrombocytopenia, unspecified - Type 1 diabetes mellitus without complications 06/14/2024 07:35 [place] TYPE: Emergency COMPLAINT: - SKIN PROBLEM DIAGNOSES: - Chronic hepatic failure without coma - Cutaneous abscess of face - intermediate (current) use of insulin - Nicotine dependence, unspecified, uncomplicated - Other biochemical engineer (current) 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 - Type 1 diabetes mellitus without complications 12/01/2023 02:01 [place] TYPE: Emergency COMPLAINT: - VOMITING BLOOD DIAGNOSES: - Alcoholic cirrhosis of liver without ascites - Epigastric pain - intermediate (current) use of insulin - Nicotine dependence, unspecified, uncomplicated - Other biochemical engineer (current) 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 - Secondary esophageal varices [...] striking against unspecified object, initial encounter - stroboroma operator (current) use of insulin - Nicotine dependence, unspecified, uncomplicated - Other biochemical engineer (current) 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 - Strain of muscle, fascia and tendon at neck level, initial encounter - Type 2 diabetes mellitus without complications - Unspecified intracranial injury with loss of consciousness of unspecified duration, initial encounter INPATIENT VISIT TRACKING (12 MO.) 10/10/2024 23:21 [facility] TYPE: General Medicine COMPLAINT: - GIB DIAGNOSES: - Enterocolitis due to Clostridium difficile, not specified as recurrent - Gastrointestinal hemorrhage, unspecified 07/11/2024 07:24 [facility] TYPE: Internal Medicine DIAGNOSES: - Hematemesis - GI Bleed [email or web address]
[2024-10-21] MEDS ORDERED: SODIUM CHLORIDE 0.9% 1,000 ML IV ONE (07:30)
[2024-10-21 07:42] LABS: BILIRUBIN, URINE NEGATIVE (negative); BLOOD/HGB, URINE NEGATIVE (Negative); KETONE, URINE NEGATIVE (Negative); LEUK ESTERASE, URINE NEGATIVE (negative); NITRITE, URINE NEGATIVE (negative); PH, URINE 6.5 (5-7)
[2024-10-21 07:52] LABS: BASOPHILS 0.6 % (0-2); EOSINOPHILS 2.3 % (0-6); HEMOGLOBIN 14.5 g/dL (12.0-18.0); LYMPHOCYTES 18.4 % (24-44); MCH 30.6 (27-36); MCHC 35.3 g/dl (30-36); MCV 86.6 fl (81-99); MONOCYTES 7.2 % (0-12); NEUTROPHILS 71.5 % (39-80); RBC 4.73 M/ul (4.3-5.7); RDW 14.8 (10.5-15.0)
[2024-10-21 08:04] LABS: PLATELET COUNT 49 K/uL (140-440)
[2024-10-21 08:05] LABS: ALBUMIN 4.1 g/dL (3.4-5.0); ALBUMIN/GLOBULIN RATIO 1.37 (1.1-2.4); ANION GAP 9.4 (7-21); BILIRUBIN, TOTAL 0.8 mg/dL (0.2-1.0); BUN/CREATININE RATIO 12.19 (6.0-28.6); CREATININE, SERUM 0.82 mg/dL (0.70-1.30); POTASSIUM 3.4 mmol/L (3.5-5.1); PROTEIN, TOTAL 7.1 g/dL (6.4-8.2)
[2024-10-21] MEDS ORDERED: ondansetron HCL 4 MG/2 ML VIAL IV ONE (08:15)
[2024-10-21] MEDS ORDERED: MORPHINE SULFATE 4 MG/ML VIAL IV ONE (08:15)
[2024-10-21] MEDS ORDERED: MIRALAX17 GM PO (08:58)
[2024-10-21 09:22] VITALS: BP 141/77
== END 2024-10-21 09:25 | disposition home or self-care (01) ==
LOC: ED 07:15
PROVIDERS: Emergency Medicine
DX: R10.84 Generalized abdominal pain (principal); K59.03 Drug induced constipation; T40.2X5A Adverse effect of other opioids, initial encounter; I10 Essential (primary) hypertension; D72.819 Decreased white blood cell count, unspecified; E10.9 Type 1 diabetes mellitus without complications; K72.10 Chronic hepatic failure without coma; F17.200 Nicotine dependence, unspecified, uncomplicated; Z79.899 Other long term (current) 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; Z96.41 Presence of insulin pump (external) (internal)
CPT/HCPCS: 36415; 74177; 80053; 81003; 83690; 85025; 85060; 96375; 99284-25; J2270; J2405; J7030; Q9967

== ENCOUNTER 2024-10-26 13:17 | Emergency (ER) | payer OTHER ==
[~2024-10-26] VITALS: Ht 182.9 cm; Wt 90.0 kg
--- OUTSIDE RECORDS SUMMARY | ~2024-10-26 | XMS | Continuity of Care Document ---
Demographics + + + | Address | [address] | | | [place] [address] | + + + | Preferred Language | Unknown | + + + | Marital Status | Unknown | + + + | Yazidism Affiliation | Unknown | + + + | Race | White | + + + | Ethnic Group | Not or | + + + Author + + + | Author | [facility] | + + + | Organization | [facility] | + + + | Address | [address] | | | [place] [address] | + + + | Phone | | + + + Care Team Providers + + + + | Care Rn Occupational Name | Role | Phone | + [...]
[~2024-10-26 13:17] MED LIST changes: +MIRALAX17 GM PO
--- OUTSIDE RECORDS SUMMARY | 2024-10-26 13:23 | XMS ---
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 RAI Security Slot Floorman Events No recent Security Events currently on file CRITERIA MET - 6 ED Visits in 6 Months - [facility] - 2 Visits in 30 Days CARE PROVIDERS MEJIA RAMOS Internal Medicine 08/10/2023-Current PHONE: [phone] ZACKERY SORTO Nurse Practitioner: 10/14/2021-Current PHONE: [phone] -[facility] Dentist: Geology Associate [facility] PHONE: [phone] -[place]- Dentist: Geology Associate Current [facility] PHONE: [phone] -[place]- Dentist: Geology Associate [facility] PHONE: [phone] SHAKILA [facility] Current CARE SYSTEM \F\ <UNAVAIL> PHONE: [phone] DALY SILVA [facility] Current PHONE: Unknown Tamica Westbrook Binding Bench Worker/Power Cutting Machine Operator Current PHONE: [phone] Matty has no Care Guidelines for this patient. E.D. VISIT COUNT (12 MO.) 13 NORA Upton TOTAL 14 NOTE: Visits indicate total known visits. ED/UCC VISIT TRACKING (12 MO.) 10/26/2024 13:17 [place] TYPE: Emergency COMPLAINT: - ABDOMINAL PAIN 10/21/2024 07:15 [facility] [place] TYPE: Emergency COMPLAINT: - ABDOMINAL PAIN DIAGNOSES: - Adverse effect of other opioids, initial encounter - Chronic hepatic failure without coma - Decreased white blood cell count, unspecified - Drug induced constipation - Essential (primary) hypertension - Generalized abdominal pain - Nicotine dependence, unspecified, uncomplicated - Other dedicated intermodal truck driver (current) 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 - Presence of insulin pump (external) (internal) - Type 1 diabetes mellitus without complications 10/10/2024 08:32 [facility] TYPE: Emergency COMPLAINT: - ABDOMINAL PAIN DIAGNOSES: - Gastrointestinal hemorrhage, unspecified - Hemorrhage of anus and rectum - adjunct faculty for medical terminology (current) use of insulin - Nicotine dependence, unspecified, uncomplicated - Other dedicated intermodal truck driver (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) 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 - Type 1 diabetes mellitus without complications 09/22/2024 11:01 [place] TYPE: Emergency COMPLAINT: - ABDOMINAL PAIN DIAGNOSES: - adjunct faculty for medical terminology (current) use of insulin - Nicotine dependence, unspecified, uncomplicated - Other dedicated intermodal truck driver (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) 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 - Spontaneous ecchymoses - Type 1 diabetes mellitus without complications - Unspecified abdominal pain 08/11/2024 09:13 [place] TYPE: Emergency COMPLAINT: - VOMITING DIAGNOSES: - Hematemesis - adjunct faculty for medical terminology (current) use of insulin - Nicotine dependence, unspecified, uncomplicated - Other dedicated intermodal truck driver (current) 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 - Secondary esophageal varices with bleeding - Type 1 diabetes mellitus without complications - Unspecified cirrhosis of liver 08/01/2024 09:42 NORA [facility] TYPE: Emergency COMPLAINT: - VOMITING BLOOD DIAGNOSES: - Hematemesis - group home (current) use of insulin - Nicotine dependence, unspecified, uncomplicated - Other shelter (current) 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 - Type 1 diabetes mellitus without complications 07/21/2024 00:59 [facility] [place] TYPE: Emergency COMPLAINT: - RECTAL BLEEDING DIAGNOSES: - Hemorrhage of anus and rectum - group home (current) use of insulin - Lower abdominal pain, unspecified - Nicotine dependence, unspecified, uncomplicated - Other dedicated intermodal truck driver (current) 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 - Type 1 diabetes mellitus without complications 07/10/2024 18:08 Catherine [facility] TYPE: Emergency COMPLAINT: - HEMATEMESIS - Vomiting_VOMITTING BLOOD DIAGNOSES: 0. Hematemesis 1. Gastrointestinal hemorrhage, unspecified 3. 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 - Type 1 diabetes mellitus without complications 06/23/2024 14:14 [place]A [place] TYPE: Emergency COMPLAINT: - ABDOMINAL PAIN DIAGNOSES: - Alcoholic liver disease, unspecified - Gastrointestinal hemorrhage, unspecified - Hematemesis - adjunct faculty for medical terminology (current) use of insulin - Nicotine dependence, unspecified, uncomplicated - Other dedicated intermodal truck driver (current) 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 - [...] coma - Cutaneous abscess of face - adjunct faculty for medical terminology (current) use of insulin - Nicotine dependence, unspecified, uncomplicated - 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] Medicine DIAGNOSES: - Hematemesis - GI Bleed [email or web address]
[2024-10-26] MEDS ORDERED: ondansetron HCL 4 MG/2 ML VIAL IV ONE (13:45)
[2024-10-26 13:55] LABS: BASOPHILS 1.4 % (0-2); EOSINOPHILS 2.5 % (0-6); HEMATOCRIT 38.3 % (35.0-50.0); HEMOGLOBIN 13.2 g/dL (12.0-18.0); LYMPHOCYTES 19.4 % (24-44); MCH 30.4 (27-36); MCHC 34.5 g/dl (30-36); MCV 88.1 fl (81-99); MONOCYTES 10.2 % (0-12); NEUTROPHILS 66.5 % (39-80); RBC 4.35 M/ul (4.3-5.7); RDW 15.1 (10.5-15.0)
[2024-10-26 14:10] LABS: ALBUMIN 3.9 g/dL (3.4-5.0); ALBUMIN/GLOBULIN RATIO 1.34 (1.1-2.4); ANION GAP 11.8 (7-21); BILIRUBIN, TOTAL 0.8 mg/dL (0.2-1.0); BUN/CREATININE RATIO 12.3 (6.0-28.6); CALCIUM 8.5 mg/dL (8.5-10.1); CREATININE, SERUM 0.65 mg/dL (0.70-1.30); MAGNESIUM 1.8 mg/dL (1.8-2.4); POTASSIUM 3.8 mmol/L (3.5-5.1); PROTEIN, TOTAL 6.8 g/dL (6.4-8.2)
[2024-10-26 14:12] LABS: PLATELET COUNT 48 K/uL (140-440)
[2024-10-26] MEDS ORDERED: MORPHINE SULFATE 4 MG/ML VIAL IV ONE (14:30)
[2024-10-26 16:12] VITALS: BP 137/74
== END 2024-10-26 16:16 | disposition home or self-care (01) ==
LOC: ED 13:17
PROVIDERS: Emergency Medicine
DX: R10.9 Unspecified abdominal pain (principal); G89.29 Other chronic pain; E10.9 Type 1 diabetes mellitus without complications; F17.200 Nicotine dependence, unspecified, uncomplicated; Z79.4 Long term (current) use of insulin; Z79.899 Other long term (current) 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
CPT/HCPCS: 36415; 74177; 80053; 83690; 83735; 85025; 85060; 96375; 99284-25; J2270; J2405; Q9967

== ENCOUNTER 2024-12-16 18:04 | Emergency (ER) | payer OTHER ==
[~2024-12-16] VITALS: Ht 182.9 cm; Wt 90.0 kg
--- OUTSIDE RECORDS SUMMARY | ~2024-12-16 | XMS | Continuity of Care Document ---
Demographics + + + | Address | [address] | | | [place] [address] | + + + | Preferred Language | Unknown | + + + | Marital Status | Unknown | + + + | Holiness Affiliation | Unknown | + + + | Race | White | + + + | Ethnic Group | Not or | + + + Author + + + | Author | [facility] | + + + | Organization | [facility] | + + + | Address | [address] | | | [place] [address] | + + + | Phone | | + + + Care Team Providers + + + + | Care Roll Forming Supervisor Name | Role | Phone | + + + + Unavailable | Unavailable | + + + + Unavailable | Unavailable | + + + + Allergies No information. Encounters No information. Functional Status No information. Immunizations No information. Medications No information. Problems + + + + | date | description | facility | + + + + | 2024-10-10 23:21:37 | Gastrointestinal | [facility] | | | hemorrhage, unspecified | | + + + + | 2024-10-17 12:23:02 | Enterocolitis due to | [facility] | | | Clostridium difficile, not | | | | specified as recurrent | | + + + + | 2024-11-10 16:41:52 | Enterocolitis due to | [facility] | | | Clostridium difficile, not | | | | specified as recurrent | | + + + + | 2024-11-13 22:19:35 | Enterocolitis due to | [facility] | | | Clostridium difficile, not | | | | specified as recurrent | | + + + + Procedures No information. Results/Labs No information. Social History +--------+ + + | date | description | facility | +--------+ + + Vital Signs No information."
--- OUTSIDE RECORDS SUMMARY | 2024-12-16 18:11 | XMS ---
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 RAI Security Shingle Trimmer Events No recent Security Events currently on file CRITERIA MET - 6 ED Visits in 6 Months CARE PROVIDERS MEJIA RAMOS Internal Medicine 08/10/2023-Current PHONE: [phone] ZACKERY SORTO Nurse Practitioner: 10/14/2021-Current PHONE: [phone] -[facility] Dentist: Lunch Truck Operator [facility] PHONE: [phone] [place]- Dentist: Lunch Truck Operator [facility] Dental [facility] PHONE: [phone] -[place]- Dentist: Lunch Truck Operator [facility] PHONE: [phone] SHAKILA [facility] Current CARE SYSTEM \F\ <UNAVAIL> PHONE: [phone] DALY SILVA [facility] Current PHONE: Unknown Tamica Westbrook Palliative Care Specialist/Network Internship Current PHONE: [phone] TIMMY APARICIO Internal Medicine: Infectious Disease Current [place] PHONE: [phone] Matty has no Care Guidelines for this patient. EAngellaDAngella VISIT COUNT (12 MO.) 12 NORA [place] TOTAL 13 NOTE: Visits indicate total known visits. ED/UCC VISIT TRACKING (12 MO.) 12/16/2024 18:04 [place] TYPE: Emergency COMPLAINT: - VOMITING BLOOD 10/26/2024 13:17 [place] TYPE: Emergency COMPLAINT: - ABDOMINAL PAIN DIAGNOSES: - technician terminal and repeater (current) use of insulin - Nicotine dependence, unspecified, uncomplicated - Other chronic pain - Other oil heaterman (current) 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 - Type 1 diabetes mellitus without complications - Unspecified abdominal pain 10/21/2024 07:15 [place] TYPE: Emergency COMPLAINT: - ABDOMINAL PAIN DIAGNOSES: - Adverse effect of other opioids, initial encounter - Chronic hepatic failure without coma - Decreased white blood cell count, unspecified - Drug induced constipation - Essential (primary) hypertension - Generalized abdominal pain - Nicotine dependence, unspecified, uncomplicated - Other oil heaterman (current) 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 - Presence of insulin pump (external) (internal) - Type 1 diabetes mellitus without complications 10/10/2024 08:32 [place] TYPE: Emergency COMPLAINT: - ABDOMINAL PAIN DIAGNOSES: - Gastrointestinal hemorrhage, unspecified - Hemorrhage of anus and rectum - senior living (current) use of insulin - Nicotine dependence, unspecified, uncomplicated - Other mcc (current) 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 - Type 1 diabetes mellitus without complications 09/22/2024 11:01 [place] TYPE: Emergency COMPLAINT: - ABDOMINAL PAIN DIAGNOSES: - senior living (current) use of insulin - Nicotine dependence, unspecified, uncomplicated - Other oil heaterman (current) 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 - Spontaneous ecchymoses - Type 1 diabetes mellitus without complications - Unspecified abdominal pain 08/11/2024 09:13 [place] TYPE: Emergency COMPLAINT: - VOMITING DIAGNOSES: - Hematemesis - technician terminal and repeater (current) use of insulin - Nicotine dependence, unspecified, uncomplicated - Other mcc (current) 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 - Secondary esophageal varices with bleeding - Type 1 diabetes mellitus without complications - Unspecified cirrhosis of liver 08/01/2024 09:42 [place] TYPE: Emergency COMPLAINT: - VOMITING BLOOD DIAGNOSES: - Hematemesis - technician terminal and repeater (current) use of insulin - Nicotine dependence, unspecified, uncomplicated - Other mcc (current) 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 - Type 1 diabetes mellitus without complications 07/21/2024 00:59 [place] TYPE: Emergency COMPLAINT: - RECTAL BLEEDING DIAGNOSES: - Hemorrhage of anus and rectum - technician terminal and repeater (current) use of insulin - Lower abdominal pain, unspecified - Nicotine dependence, unspecified, uncomplicated - Other oil heaterman (current) 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 - Type 1 diabetes mellitus without complications 07/10/2024 18:08 [facility] [place] [facility] COMPLAINT: - HEMATEMESIS - Vomiting_VOMITTING BLOOD DIAGNOSES: 0. Hematemesis 1. Gastrointestinal hemorrhage, unspecified 3. Nicotine dependence, cigarettes, uncomplicated 07/07/2024 15:49 NORA [place] TYPE: Emergency COMPLAINT: - VOMITING BLOOD, ABD PAIN, H/C SWEATS DIAGNOSES: - Hematemesis - senior living (current) use of insulin - Nicotine dependence, unspecified, uncomplicated - Other oil heaterman (current) 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 - Type 1 diabetes mellitus without complications 06/23/2024 14:14 [place] TYPE: Emergency COMPLAINT: - ABDOMINAL PAIN DIAGNOSES: - Alcoholic liver disease, unspecified - Gastrointestinal hemorrhage, unspecified - Hematemesis - technician terminal and repeater (current) use of insulin - Nicotine dependence, unspecified, uncomplicated - Other mcc (current) 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 - Secondary esophageal varices without bleeding - Type 1 diabetes mellitus without complications 06/21/2024 12:09 [place] TYPE: Emergency COMPLAINT: - ABDOMINAL PAIN DIAGNOSES: - Alcoholic cirrhosis of liver without ascites - Gastrointestinal hemorrhage, unspecified - Lower abdominal pain, unspecified - Nicotine dependence, unspecified, uncomplicated - Other oil heaterman (current) 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 - Secondary esophageal varices without bleeding - Thrombocytopenia, unspecified - Type 1 diabetes mellitus without complications 06/14/2024 07:35 [place] TYPE: Emergency COMPLAINT: - SKIN PROBLEM DIAGNOSES: - Chronic hepatic failure without coma - Cutaneous abscess of face - senior living (current) use of insulin - Nicotine dependence, unspecified, uncomplicated - Other mcc (current) 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 - Type 1 diabetes mellitus without complications INPATIENT VISIT TRACKING (12 MO.) 12/15/2024 09:41 [facility] TYPE: Interventional DIAGNOSES: - Other cirrhosis of liver - Unspecified cirrhosis of liver - Hepatic cirrhosis 10/10/2024 23:21 [facility] TYPE: General Medicine COMPLAINT: - GIB DIAGNOSES: - Enterocolitis due to Clostridium difficile, not specified as recurrent - Gastrointestinal hemorrhage, unspecified 07/11/2024 07:24 [facility] TYPE: Internal Medicine DIAGNOSES: - Hematemesis - GI Bleed [email or web address]
[2024-12-16] MEDS ORDERED: XIFAXAN550 MG PO (18:22)
[2024-12-16] MEDS ORDERED: PRUCALOPRIDE 2 MG PO (18:22)
[2024-12-16] MEDS ORDERED: SPIRONOLACTONE50 MG PO (18:22)
[2024-12-16] MEDS ORDERED: INSULIN LI100 UNIT/1 SUB-Q (18:22)
[2024-12-16] MEDS ORDERED: MAGNESIUM OXID400 M1 PO (18:23)
[2024-12-16] MEDS ORDERED: AMITRIPTYLINE H25 MG PO (18:23)
[2024-12-16 18:29] LABS: BASOPHILS 0.2 % (0.2-1.2); EOSINOPHILS 0.9 % (0.8-7.0); HEMATOCRIT 43.8 % (40.1-51.0); HEMOGLOBIN 14.9 g/dL (13.7-17.5); LYMPHOCYTES 9.7 % (21.8-53.1); MCH 29.7 PG (25.7-32.2); MCV 87.3 fL (79.0-92.2); NEUTROPHILS 78.9 % (34.0-67.9); PLATELET COUNT 95 K/uL (163-337); RBC 5.02 M/uL (4.63-6.08)
[2024-12-16 18:33] LABS: INR 1.4 (0.80-1.30); PARTIAL THROMBOPLASTIN TIME 27.3 Sec (22.9-41.3); PROTIME 16.3 Sec (11.2-14.2)
[2024-12-16 18:37] LABS: ALBUMIN 4.1 g/dL (3.4-5.0); ALBUMIN/GLOBULIN RATIO 1.28 (1.1-2.4); ANION GAP 11.6 (7-21); BILIRUBIN, TOTAL 2.3 mg/dL (0.2-1.0); BUN/CREATININE RATIO 9.75 (6.0-28.6); CALCIUM 9.3 mg/dL (8.5-10.1); CREATININE, SERUM 0.82 mg/dL (0.70-1.30); POTASSIUM 3.6 mmol/L (3.5-5.1); PROTEIN, TOTAL 7.3 g/dL (6.4-8.2)
[2024-12-16] MEDS ORDERED: PANTOPRAZOLE SODIUM 40 MG/10 ML VIAL IV ONE ×2 (18:45→19:30)
[2024-12-16] MEDS ORDERED: MORPHINE SULFATE 4 MG/ML VIAL IV ONE (18:45)
[2024-12-16] MEDS ORDERED: OCTREOTIDE ACETATE 100 MCG/ML VIAL IV ONE (18:45)
[2024-12-16] MEDS ORDERED: CEFTRIAXONE SODIUM 1 GM in SODIUM CHLORIDE 0.9% 100 ML IV ONE (18:45)
[2024-12-16] MEDS ORDERED: OCTREOTIDE ACETATE IV SCH (19:00)
[2024-12-16] MEDS ORDERED: ondansetron HCL 4 MG/2 ML VIAL IV ONE (19:00)
[2024-12-16] MEDS ORDERED: SODIUM CHLORIDE 0.9% IV SCH (19:00)
[2024-12-16 19:06] LABS: ABO O; RH POSITIVE
[2024-12-16 19:07] LABS: ANTIBODY SCREEN NEGATIVE
[2024-12-16] MEDS ORDERED: droPERidol 5 MG/2 ML VIAL IV ONE (19:30)
[2024-12-16 20:17] LABS: BASOPHILS 0.2 % (0.2-1.2); EOSINOPHILS 1.2 % (0.8-7.0); HEMATOCRIT 39.5 % (40.1-51.0); HEMOGLOBIN 13.6 g/dL (13.7-17.5); LYMPHOCYTES 10.2 % (21.8-53.1); MCH 30.2 PG (25.7-32.2); MCHC 34.4 g/dL (32.3-36.5); MCV 87.6 fL (79.0-92.2); MONOCYTES 9.7 % (5.3-12.2); NEUTROPHILS 78.5 % (34.0-67.9); PLATELET COUNT 69 K/uL (163-337); RBC 4.51 M/uL (4.63-6.08)
[2024-12-16 21:21] LABS: BASOPHILS 0.3 % (0.2-1.2); EOSINOPHILS 1.4 % (0.8-7.0); HEMATOCRIT 37.5 % (40.1-51.0); HEMOGLOBIN 12.9 g/dL (13.7-17.5); LYMPHOCYTES 10.1 % (21.8-53.1); MCH 30.1 PG (25.7-32.2); MCHC 34.4 g/dL (32.3-36.5); MCV 87.6 fL (79.0-92.2); MONOCYTES 9.5 % (5.3-12.2); NEUTROPHILS 78.4 % (34.0-67.9); PLATELET COUNT 59 K/uL (163-337); RBC 4.28 M/uL (4.63-6.08)
[2024-12-16] MEDS ORDERED: TRANEXAMIC ACID IN NACL,ISO-OS 1,000 MG/100 ML PIGGYBACK IV SCH (21:30)
[2024-12-16] MEDS ORDERED: SODIUM CHLORIDE 0.9% 500 ML IV PRN (21:45)
[2024-12-16] MEDS ORDERED: Rifaximin 550 MG TAB PO SCH (22:00)
[2024-12-16] MEDS ORDERED: ondansetron HCL 4 MG/2 ML VIAL IV PRN (22:00)
[2024-12-16] MEDS ORDERED: SODIUM CHLORIDE 0.9% 1,000 ML IV SCH (23:15)
[2024-12-17 00:20] LABS: BASOPHILS 0.2 % (0.2-1.2); EOSINOPHILS 1.6 % (0.8-7.0); HEMATOCRIT 35.8 % (40.1-51.0); HEMOGLOBIN 12.1 g/dL (13.7-17.5); LYMPHOCYTES 13.2 % (21.8-53.1); MCH 29.9 PG (25.7-32.2); MCHC 33.8 g/dL (32.3-36.5); MCV 88.4 fL (79.0-92.2); NEUTROPHILS 74.8 % (34.0-67.9); PLATELET COUNT 55 K/uL (163-337); RBC 4.05 M/uL (4.63-6.08)
[2024-12-17] MEDS ORDERED: MORPHINE SULFATE 4 MG/ML VIAL IV PRN (01:45)
[2024-12-17 03:24] LABS: BASOPHILS 0.4 % (0.2-1.2); EOSINOPHILS 1.6 % (0.8-7.0); HEMOGLOBIN 12.5 g/dL (13.7-17.5); LYMPHOCYTES 14.3 % (21.8-53.1); MCHC 33.8 g/dL (32.3-36.5); MCV 88.9 fL (79.0-92.2); MONOCYTES 10.7 % (5.3-12.2); NEUTROPHILS 72.8 % (34.0-67.9); PLATELET COUNT 55 K/uL (163-337); RBC 4.16 M/uL (4.63-6.08)
[2024-12-17] MEDS ORDERED: Insulin Regular, Human 100 UNIT/ML ML SUB-Q SCH (07:00)
[2024-12-17] MEDS ORDERED: IBLOOD GLUCOSE TEST STRIP 1 EA TEST VI SCH (07:00)
[2024-12-17] MEDS ORDERED: OCTREOTIDE ACETATE 100 MCG/ML VIAL ONE (07:00)
[2024-12-17 07:16] LABS: BASOPHILS 0.5 % (0.2-1.2); EOSINOPHILS 2.2 % (0.8-7.0); HEMATOCRIT 37.6 % (40.1-51.0); HEMOGLOBIN 13.1 g/dL (13.7-17.5); LYMPHOCYTES 16.3 % (21.8-53.1); MCH 30.7 PG (25.7-32.2); MCHC 34.8 g/dL (32.3-36.5); MCV 88.1 fL (79.0-92.2); MONOCYTES 11.3 % (5.3-12.2); NEUTROPHILS 69.5 % (34.0-67.9); PLATELET COUNT 50 K/uL (163-337); RBC 4.27 M/uL (4.63-6.08)
[2024-12-17 09:13] LABS: BASOPHILS 0.2 % (0.2-1.2); HEMOGLOBIN 12.9 g/dL (13.7-17.5); LYMPHOCYTES 15.5 % (21.8-53.1); MCH 30.1 PG (25.7-32.2); MCHC 33.9 g/dL (32.3-36.5); MCV 88.8 fL (79.0-92.2); MONOCYTES 11.5 % (5.3-12.2); NEUTROPHILS 70.4 % (34.0-67.9); RBC 4.28 M/uL (4.63-6.08)
[2024-12-17 09:34] LABS: PLATELET COUNT 47 K/uL (163-337)
[2024-12-17] MEDS ORDERED: ondansetron HCL 4 MG/2 ML VIAL IV ONE (12:00)
[2024-12-17] MEDS ORDERED: droPERidol 5 MG/2 ML VIAL IV ONE (12:00)
[2024-12-17 16:33] VITALS: BP 130/73
--- NOTE | 2024-12-17 21:56 | EKG ---
[facility] [address] [facility] [address] [place] [address] Signed Normal sinus rhythm Prolonged QT Abnormal ECG When compared with ECG of 22-SEP-2024 13:31, No significant change was found Confirmed by Tati Ugarte MD () on 12/17/2024 9:55:58 PM Electronically Signed By: TATI UGARTE MD 12/17/24 [id number] PATIENT NAME: FEI RAI Electrocardiogram DATE OF : 79 PHYSICIAN: TATI UGARTE MD REPORT #: [id number] REPORT IS CONFIDENTIAL AND NOT TO BE RELEASED WITHOUT AUTHORIZATION
== END 2024-12-17 16:33 | disposition short-term general hospital (02) ==
LOC: ED 18:04
PROVIDERS: Emergency Medicine; Family Medicine
DX: T82.898A Other specified complication of vascular prosthetic devices, implants and grafts, initial encounter (principal); K92.0 Hematemesis; K74.60 Unspecified cirrhosis of liver; E10.9 Type 1 diabetes mellitus without complications; F17.200 Nicotine dependence, unspecified, uncomplicated; Z79.4 Long term (current) use of insulin; Z79.899 Other long term (current) 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
CPT/HCPCS: 36415; 74175; 76705; 80053; 82140; 85025; 85060; 85610; 85730; 86850; 86900; 86901; 93005; 93010; 96365; 96366; 96367; 96368; 96375; 96376; 99285-25; J0696; J1790; J1815; J2270; J2354-JA; J2405; J2470; J7030; J7040; J7050; Q9967

== ENCOUNTER 2025-01-06 02:04 | Emergency (ER) | payer OTHER ==
[~2025-01-06] VITALS: Ht 182.9 cm; Wt 90.0 kg
--- OUTSIDE RECORDS SUMMARY | ~2025-01-06 | XMS | Continuity of Care Document ---
Demographics + + + | Address | [address] | | | [place] [address] | + + + | Preferred Language | Unknown | + + + | Marital Status | Unknown | + + + | Temple Affiliation | Unknown | + + + | Race | White | + + + | Ethnic Group | Not or | + + + Author + + + | Author | [facility] | + + + | Organization | [facility] | + + + | Address | [address] | | | [place] [address] | + + + | Phone | | + + + Care Team Providers + + + + | Care Switch Repairer Name | Role | Phone | + [...] | | + + + + | 2024-12-17 20:44:28 | Gastrointestinal | [facility] | | | hemorrhage, unspecified | | + + + + | 2024-12-18 18:03:48 | Gastrointestinal | [facility] | | | hemorrhage, unspecified | | + + + + Procedures No information. Results/Labs No information. Social History +--------+ + + | date | description | facility | +--------+ + + Vital Signs No information."
[~2025-01-06 02:04] MED LIST changes: +AMITRIPTYLINE H25 MG PO; +INSULIN LI100 UNIT/1 SUB-Q; +MAGNESIUM OXID400 M1 PO; +PRUCALOPRIDE 2 MG PO; +SPIRONOLACTONE50 MG PO
--- OUTSIDE RECORDS SUMMARY | 2025-01-06 02:10 | XMS ---
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 RAI Security Child Psychologist Events No recent Security Events currently on file CRITERIA MET - 6 ED Visits in 6 Months - [facility] - 2 Visits in 30 Days CARE PROVIDERS MEJIA RAMOS Internal Medicine 08/10/2023-Current PHONE: [phone] ZACKERY SORTO Nurse Practitioner: 10/14/2021-Current PHONE: [phone] -[facility]+ Dentist: Stave Jointer [facility] PHONE: [phone] -[place]- Dentist: Stave Jointer Current [facility] PHONE: [phone] -[place]- Dentist: Stave Jointer [facility] PHONE: [phone] SHAKILA [facility] CARE SYSTEM \F\ <UNAVAIL> PHONE: [phone] DALY SILVA [facility] Current PHONE: Unknown Tamica Westbrook Instrument Mechanics Supervisor/Poultry Farmer Meat Current PHONE: [phone] TIMMY APARICIO Internal Medicine: Infectious Disease Current [place] PHONE: [phone] Matty has no Care Guidelines for this patient. Sina VISIT COUNT (12 MO.) 13 NORA Upton TOTAL 14 NOTE: Visits indicate total known visits. ED/UCC VISIT TRACKING (12 MO.) 01/06/2025 02:04 [facility] TYPE: Emergency COMPLAINT: - VOMITING 12/16/2024 18:04 [facility] [place] [place] TYPE: Emergency COMPLAINT: - VOMITING BLOOD DIAGNOSES: - Hematemesis - termite treater (current) use of insulin - Nicotine dependence, unspecified, uncomplicated - Other half-way (current) 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 - Other specified complication of vascular prosthetic devices, implants and grafts, initial encounter - Type 1 diabetes mellitus without complications - Unspecified cirrhosis of liver 10/26/2024 13:17 [facility] [place] H[place]ella [place] TYPE: Emergency COMPLAINT: - ABDOMINAL PAIN DIAGNOSES: - termite treater (current) use of insulin - Nicotine dependence, unspecified, uncomplicated - Other chronic pain - Other half-way (current) 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 - Type 1 diabetes mellitus without complications - Unspecified abdominal pain 10/21/2024 07:15 [facility] [place] H[place]ella [place] TYPE: Emergency COMPLAINT: - ABDOMINAL PAIN DIAGNOSES: - Adverse effect of other opioids, initial encounter - Chronic hepatic failure without coma - Decreased white blood cell count, unspecified - Drug induced constipation - Essential (primary) hypertension - Generalized abdominal pain - Nicotine dependence, unspecified, uncomplicated - Other termite treater (current) 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 - Presence of insulin pump (external) (internal) - Type 1 diabetes mellitus without complications 10/10/2024 08:[address] [facility] [address] [place] TYPE: Emergency COMPLAINT: - ABDOMINAL PAIN DIAGNOSES: - Gastrointestinal hemorrhage, unspecified - Hemorrhage of anus and rectum - residential (current) use of insulin - Nicotine dependence, unspecified, uncomplicated - Other half-way (current) 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 - Type 1 diabetes mellitus without complications 09/22/2024 11:01 [place] TYPE: Emergency COMPLAINT: - ABDOMINAL PAIN DIAGNOSES: - termite treater (current) use of insulin - Nicotine dependence, unspecified, uncomplicated - Other termite treater (current) 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 - Spontaneous ecchymoses - Type 1 diabetes mellitus without complications - Unspecified abdominal pain 08/11/2024 09:13 [place] TYPE: Emergency COMPLAINT: - VOMITING DIAGNOSES: - Hematemesis - termite treater (current) use of insulin - Nicotine dependence, unspecified, uncomplicated - Other half-way (current) 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 - Secondary esophageal varices with bleeding - Type 1 diabetes mellitus without complications - Unspecified cirrhosis of liver 08/01/2024 09:42 [facility]A [place] TYPE: Emergency COMPLAINT: - VOMITING BLOOD DIAGNOSES: - Hematemesis - termite treater (current) use of insulin - Nicotine dependence, unspecified, uncomplicated - Other termite treater (current) 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 - Type 1 diabetes mellitus without complications 07/21/2024 00:59 [facility] [place] TYPE: Emergency COMPLAINT: - RECTAL BLEEDING DIAGNOSES: - Hemorrhage of anus and rectum - residential (current) use of insulin - Lower abdominal pain, unspecified - Nicotine dependence, unspecified, uncomplicated - Other termite treater (current) 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 - Type 1 diabetes mellitus without complications 07/10/2024 18:08 Catherine [facility] TYPE: Emergency COMPLAINT: - HEMATEMESIS - Vomiting_VOMITTING BLOOD DIAGNOSES: 0. Hematemesis 1. Gastrointestinal hemorrhage, unspecified 3. Nicotine dependence, cigarettes, uncomplicated 07/07/2024 15:49 [place] TYPE: Emergency COMPLAINT: - VOMITING BLOOD, ABD PAIN, H/C SWEATS DIAGNOSES: - Hematemesis - residential (current) use of insulin - Nicotine dependence, unspecified, uncomplicated - Other half-way (current) 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 - Type 1 diabetes mellitus without complications 06/23/2024 14:14 [place] TYPE: Emergency COMPLAINT: - ABDOMINAL PAIN DIAGNOSES: - Alcoholic liver disease, unspecified - Gastrointestinal hemorrhage, unspecified - Hematemesis - termite treater (current) use of insulin - Nicotine dependence, unspecified, uncomplicated - Other termite treater (current) 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 - Secondary esophageal varices [...] diabetes mellitus without complications 06/14/2024 07:35 [facility]A [place] TYPE: Emergency COMPLAINT: - SKIN PROBLEM DIAGNOSES: - Chronic hepatic failure without coma - Cutaneous abscess of face - termite treater (current) use of insulin - Nicotine dependence, unspecified, uncomplicated - Other termite treater (current) 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 - Type 1 diabetes mellitus without complications INPATIENT VISIT TRACKING (12 MO.) 12/17/2024 20:44 [facility] TYPE: General Medicine COMPLAINT: - hematemesis DIAGNOSES: - Gastrointestinal hemorrhage, unspecified - Gastrointestinal hemorrhage, unspecified 12/15/2024 09:41 [facility] TYPE: Interventional DIAGNOSES: - Other cirrhosis of liver - Unspecified cirrhosis of liver - Hepatic cirrhosis 10/10/2024 23:21 [facility] TYPE: General Medicine COMPLAINT: - GIB DIAGNOSES: - Enterocolitis due to Clostridium difficile, not specified as recurrent - Gastrointestinal hemorrhage, unspecified 07/11/2024 07:24 [facility] TYPE: Internal Medicine DIAGNOSES: - Hematemesis - GI Bleed [id number]
[2025-01-06 02:30] LABS: BASOPHILS 0.8 % (0.2-1.2); EOSINOPHILS 3.1 % (0.8-7.0); HEMOGLOBIN 15.8 g/dL (13.7-17.5); LYMPHOCYTES 31.6 % (21.8-53.1); MCH 29.5 PG (25.7-32.2); MCHC 35.1 g/dL (32.3-36.5); MONOCYTES 6.1 % (5.3-12.2); NEUTROPHILS 58.2 % (34.0-67.9); PLATELET COUNT 65 K/uL (163-337); RBC 5.36 M/uL (4.63-6.08)
[2025-01-06] MEDS ORDERED: FAMOTIDINE 20 MG/ 2 ML VIAL IV ONE (02:30)
[2025-01-06] MEDS ORDERED: droPERidol 5 MG/2 ML VIAL IV ONE (02:30)
[2025-01-06] MEDS ORDERED: LACTATED RINGER'S 1,000 ML IV ONE (02:45)
[2025-01-06] MEDS ORDERED: HYDROmorphone HCL 1 MG/ML SYR IV PRN (02:45)
[2025-01-06 02:46] LABS: ALBUMIN 3.9 g/dL (3.4-5.0); ALBUMIN/GLOBULIN RATIO 1.22 (1.1-2.4); ANION GAP 14.1 (7-21); BILIRUBIN, TOTAL 2.5 mg/dL (0.2-1.0); BUN/CREATININE RATIO 6.89 (6.0-28.6); CALCIUM 9.2 mg/dL (8.5-10.1); CREATININE, SERUM 0.87 mg/dL (0.70-1.30); MAGNESIUM 1.6 mg/dL (1.8-2.4); POTASSIUM 3.1 mmol/L (3.5-5.1); PROTEIN, TOTAL 7.1 g/dL (6.4-8.2)
[2025-01-06 03:12] LABS: ABO O; ANTIBODY SCREEN NEGATIVE; RH POSITIVE
[2025-01-06] MEDS ORDERED: POTASSIUM CHLORIDE 10 MEQ TABCR PO ONE (04:15)
[2025-01-06 05:03] LABS: BILIRUBIN, URINE NEGATIVE (negative); BLOOD/HGB, URINE NEGATIVE (Negative); KETONE, URINE NEGATIVE (Negative); LEUK ESTERASE, URINE NEGATIVE (negative); NITRITE, URINE NEGATIVE (negative); PH, URINE 8.5 (5-7)
[2025-01-06] MEDS ORDERED: MAGNESIUM SULFATE 2 GM/50 ML BAG IV ONE (05:15)
[2025-01-06] MEDS ORDERED: POTASSIUM CHLORIDE 10 MEQ/100 ML BAG IV SCH (05:15)
[2025-01-06 05:18] LABS: AMPHETAMINES, URINE NEGATIVE (NEGATIVE); BARBITURATES, URINE NEGATIVE (NEGATIVE); BENZODIAZEPINE, URINE NEGATIVE (NEGATIVE); BUPRENORPHINE, URINE NEGATIVE (NEGATIVE); CANNABINOID, URINE POSITIVE (NEGATIVE); COCAINE, URINE NEGATIVE (NEGATIVE); ECSTASY, URINE NEGATIVE (NEGATIVE); FENTANYL, URINE NEGATIVE (NEGATIVE); METHADONE, URINE NEGATIVE (NEGATIVE); OPIATES, URINE NEGATIVE (NEGATIVE); OXYCODONE, URINE NEGATIVE (NEGATIVE); PHENCYCLIDINE, URINE NEGATIVE (NEGATIVE)
[2025-01-06] MEDS ORDERED: COMPAZINE25 MG PR (06:25)
[2025-01-06] MEDS ORDERED: PROCHLORPERAZINE EDISYLATE 10 MG/2 ML VIAL IV ONE (06:30)
[2025-01-06 09:15] VITALS: BP 97/68
--- NOTE | 2025-01-08 12:12 | EKG ---
[facility] [address] [place] [address] Signed Normal sinus rhythm Prolonged QT Abnormal ECG When compared with ECG of 16-DEC-2024 18:21, No significant change was found Confirmed by Prisca Gilman DO ([id number]) on 01/08/2025 12:12:11 PM Electronically Signed By: PRISCA GILMAN DO 01/08/251211 PATIENT NAME: FEI RAI Electrocardiogram DATE OF : 79 PHYSICIAN: PRISCA GILMAN DO REPORT #: [id number] REPORT IS CONFIDENTIAL AND NOT TO BE RELEASED WITHOUT AUTHORIZATION
== END 2025-01-06 09:15 | disposition home or self-care (01) ==
LOC: ED 02:04
PROVIDERS: Internal Medicine
DX: R11.2 Nausea with vomiting, unspecified (principal); K74.60 Unspecified cirrhosis of liver; E87.6 Hypokalemia; E10.9 Type 1 diabetes mellitus without complications; F17.200 Nicotine dependence, unspecified, uncomplicated; Z79.4 Long term (current) use of insulin; Z79.899 Other long term (current) 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
CPT/HCPCS: 36415; 74177; 80053; 80307; 81003; 82010; 83690; 83735; 84484; 85025; 86850; 86900; 86901; 93005; 93010; 96361; 96366; 96368; 96375; 99284-25; A9270; G0480; J0780; J1171; J1790; J3475; J3480; J7121; Q9967

== ENCOUNTER 2025-01-16 08:40 | Emergency (ER) | payer OTHER ==
[~2025-01-16] VITALS: Ht 182.9 cm; Wt 90.9 kg
--- OUTSIDE RECORDS SUMMARY | ~2025-01-16 | XMS | Continuity of Care Document ---
Demographics + + + | Address | [address] | | | [place] [address] | + + + | Preferred Language | Unknown | + + + | Marital Status | Unknown | + + + | Gnosticist Affiliation | Unknown | + + + | Race | White | + + + | Ethnic Group | Not or | + + + Author + + + | Author | [facility] | + + + | Organization | [facility] | + + + | Address | [address] | | | [place] [address] | + + + | Phone | | + + + Care Team Providers + + + + | Care Brick Shader Name | Role | Phone | + + + + Unavailable | Unavailable | + + + + Allergies No information. Encounters No information. Functional Status No information. Immunizations No information. Medications No information. Problems + + + + | date | description | facility | + + + + | 2024-11-10 [...]
[~2025-01-16 08:40] MED LIST changes: +COMPAZINE25 MG PR
--- OUTSIDE RECORDS SUMMARY | 2025-01-16 08:47 | XMS ---
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 RAI Security Power Line Installer Events No recent Security Events currently on file CRITERIA MET - 6 ED Visits in 6 Months - [facility] - 2 Visits in 30 Days CARE PROVIDERS MEJIA RAMOS Internal Medicine 08/10/2023-Current PHONE: [phone] ZACKERY SORTO Nurse Practitioner: 10/14/2021-Current PHONE: [phone] -[facility]+ Dentist: Warehouse Handler [facility] PHONE: [phone] -[place]- Dentist: Warehouse Handler Current [facility] PHONE: [phone] -[place]- Dentist: Warehouse Handler [facility] PHONE: [phone] SHAKILA [facility] CARE SYSTEM \F\ <UNAVAIL> PHONE: [phone] DALY SILVA [facility] Current PHONE: Unknown Tamica Westbrook Division Traffic Superintendent/Entertainment Production Professional Current PHONE: [phone] TIMMY APARICIO Internal Medicine: Infectious Disease Current [place] PHONE: [phone] Matty has no Care Guidelines for this patient. Sina VISIT COUNT (12 MO.) 14 NORA Upton TOTAL 15 NOTE: Visits indicate total known visits. ED/UCC VISIT TRACKING (12 MO.) 01/16/2025 08:40 [place] TYPE: Emergency COMPLAINT: - LEG SWELLING 01/06/2025 02:04 [place] TYPE: Emergency COMPLAINT: - VOMITING DIAGNOSES: - Hypokalemia - ocean transportation intermediary (current) use of insulin - Nausea with vomiting, unspecified - Nicotine dependence, unspecified, uncomplicated - Other terminal block assembler (current) 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 - Type 1 diabetes mellitus without complications - Unspecified abdominal pain - Unspecified cirrhosis of liver 12/16/2024 18:04 [place] TYPE: Emergency COMPLAINT: - VOMITING BLOOD DIAGNOSES: - Hematemesis - nursing home (current) use of insulin - Nicotine dependence, unspecified, uncomplicated - Other terminal block assembler (current) drug therapy - Other specified complication of vascular prosthetic devices, implants and grafts, initial encounter - Type 1 diabetes mellitus without complications - Unspecified cirrhosis of liver 10/26/2024 13:17 [place] TYPE: Emergency COMPLAINT: - ABDOMINAL PAIN DIAGNOSES: - nursing home (current) use of insulin - Nicotine dependence, unspecified, uncomplicated - Other chronic pain - Other terminal block assembler (current) drug therapy - Type 1 diabetes [...] - Nicotine dependence, unspecified, uncomplicated - Other custodial (current) drug therapy - Presence of insulin pump (external) (internal) - Type 1 diabetes mellitus without complications 10/10/2024 08:32 [place] TYPE: Emergency COMPLAINT: - ABDOMINAL PAIN DIAGNOSES: - Gastrointestinal hemorrhage, unspecified - Hemorrhage of anus and rectum - nursing home (current) use of insulin - Nicotine dependence, unspecified, uncomplicated - Other custodial (current) drug therapy - Type 1 diabetes mellitus without complications 09/22/2024 11:01 [place] TYPE: Emergency COMPLAINT: - ABDOMINAL PAIN DIAGNOSES: - nursing home (current) use of insulin - Nicotine dependence, unspecified, uncomplicated - Other custodial (current) drug therapy - Spontaneous ecchymoses - Type 1 diabetes mellitus without complications - Unspecified abdominal pain 08/11/2024 09:13 [place] TYPE: Emergency COMPLAINT: - VOMITING DIAGNOSES: - Hematemesis - ocean transportation intermediary (current) use of insulin - Nicotine dependence, unspecified, uncomplicated - Other custodial (current) drug therapy - Secondary esophageal varices with bleeding - Type 1 diabetes mellitus without complications - Unspecified cirrhosis of liver 08/01/2024 09:42 [place] TYPE: Emergency COMPLAINT: - VOMITING BLOOD DIAGNOSES: - Hematemesis - nursing home (current) use of insulin - Nicotine dependence, unspecified, uncomplicated - Other terminal block assembler (current) drug therapy - Type 1 diabetes mellitus without complications 07/21/2024 00:59 [place] TYPE: Emergency COMPLAINT: - RECTAL BLEEDING DIAGNOSES: - Hemorrhage of anus and rectum - nursing home (current) use of insulin - Lower abdominal pain, unspecified - Nicotine dependence, unspecified, uncomplicated - Other terminal block assembler (current) drug therapy - Type 1 diabetes mellitus without complications 07/10/2024 18:08 [facility] TYPE: Emergency COMPLAINT: - HEMATEMESIS - Vomiting_VOMITTING BLOOD DIAGNOSES: 0. Hematemesis 1. Gastrointestinal hemorrhage, unspecified 3. Nicotine dependence, cigarettes, uncomplicated 07/07/2024 15:49 [facility] [place] TYPE: Emergency COMPLAINT: - VOMITING BLOOD, ABD PAIN, H/C SWEATS DIAGNOSES: - Hematemesis - ocean transportation intermediary (current) use of insulin - Nicotine dependence, unspecified, uncomplicated - Other terminal block assembler (current) drug therapy - Type 1 diabetes mellitus without complications 06/23/2024 14:14 [place] TYPE: Emergency COMPLAINT: - ABDOMINAL PAIN DIAGNOSES: - Alcoholic liver disease, unspecified - Gastrointestinal hemorrhage, unspecified - Hematemesis - ocean transportation intermediary (current) use of insulin - Nicotine dependence, unspecified, uncomplicated - Other custodial (current) drug therapy - Secondary esophageal varices without bleeding - Type 1 diabetes mellitus without complications 06/21/2024 12:09 [place] TYPE: Emergency COMPLAINT: - ABDOMINAL PAIN DIAGNOSES: - Alcoholic cirrhosis of liver without ascites - Gastrointestinal hemorrhage, unspecified - Lower abdominal pain, unspecified - Nicotine dependence, unspecified, uncomplicated - Other custodial (current) drug therapy - Secondary esophageal varices without bleeding - Thrombocytopenia, unspecified - Type 1 diabetes mellitus without complications 06/14/2024 07:35 [place] TYPE: Emergency COMPLAINT: - SKIN PROBLEM DIAGNOSES: - Chronic hepatic failure without coma - Cutaneous abscess of face - nursing home (current) use of insulin - Nicotine dependence, unspecified, uncomplicated - Other terminal block assembler (current) drug therapy - Type 1 diabetes mellitus without complications INPATIENT VISIT TRACKING (12 MO.) 12/17/2024 20:44 [facility] TYPE: General Medicine COMPLAINT: - hematemesis DIAGNOSES: - Gastrointestinal hemorrhage, unspecified - Gastrointestinal hemorrhage, unspecified 12/15/2024 09:41 [facility] TYPE: Interventional DIAGNOSES: - Other cirrhosis of liver - Unspecified cirrhosis of liver - Hepatic cirrhosis 10/10/2024 23:21 [facility] TYPE: General Medicine COMPLAINT: - GIB DIAGNOSES: - Enterocolitis due to Clostridium difficile, not specified as recurrent - Gastrointestinal hemorrhage, unspecified 07/11/2024 07:24 [facility] TYPE: Internal Medicine DIAGNOSES: - Hematemesis - GI Bleed [id number]
[2025-01-16] MEDS ORDERED: OXYCODONE HCL10 MG PO (08:59)
[2025-01-16 10:09] LABS: BASOPHILS 0.3 % (0.2-1.2); EOSINOPHILS 4.8 % (0.8-7.0); LYMPHOCYTES 24.5 % (21.8-53.1); MCH 29.8 PG (25.7-32.2); MCHC 35.1 g/dL (32.3-36.5); MCV 84.9 fL (79.0-92.2); MONOCYTES 8.8 % (5.3-12.2); NEUTROPHILS 61.6 % (34.0-67.9); RBC 4.50 M/uL (4.63-6.08)
[2025-01-16 10:31] LABS: ALT (SGPT) 60 U/L (14-59); AST (SGOT) 52 U/L (15-37); GLOMERULAR FILTRATION RATE,EST 121 mL/min (>60); PROTEIN, TOTAL 5.9 g/dL (6.4-8.2); UREA NITROGEN 4 mg/dL (7-18)
[2025-01-16 11:14] VITALS: BP 125/76
--- NOTE | 2025-01-16 22:02 | EKG ---
[facility] [address] [place] [address] Signed Normal sinus rhythm Prolonged QT Abnormal ECG When compared with ECG of 06-JAN-2025 06:25, No significant change was found Confirmed by Tati Ugarte MD () on 01/16/2025 10:02:12 PM Electronically Signed By: TATI UGARTE MD 01/16/252201 PATIENT NAME: FEI RAI Electrocardiogram DATE OF : 79 PHYSICIAN: TATI UGARTE MD REPORT #: [id number] REPORT IS CONFIDENTIAL AND NOT TO BE RELEASED WITHOUT AUTHORIZATION
== END 2025-01-16 11:14 | disposition home or self-care (01) ==
LOC: ED 08:40
PROVIDERS: Emergency Medicine
DX: R00.2 Palpitations (principal); R60.0 Localized edema; E10.9 Type 1 diabetes mellitus without complications; F17.200 Nicotine dependence, unspecified, uncomplicated; Z79.899 Other long term (current) 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
CPT/HCPCS: 36415; 71045; 80053; 83735; 83880; 84484; 85025; 85060; 93005; 93010; 93971; 99285-25

== ENCOUNTER 2025-02-28 12:01 | Emergency (ER) | payer OTHER ==
[~2025-02-28] VITALS: Ht 182.9 cm; Wt 82.0 kg
--- OUTSIDE RECORDS SUMMARY | ~2025-02-28 | XMS | Continuity of Care Document ---
Demographics + + + | Address | [address] | | | [place] [address] | + + + | Preferred Language | Unknown | + + + | Marital Status | Unknown | + + + | Alevism Affiliation | Unknown | + + + | Race | White | + + + | Ethnic Group | Not or | + + + Author + + + | Author | [facility] | + + + | Organization | [facility] | + + + | Address | [address] | | | [place] [address] | + + + | Phone | | + + + Care Team Providers + + + + | Care Production Tech Name | Role | Phone | + + + + Unavailable | Unavailable | + + + + Allergies No information. Encounters No information. Functional Status No information. Immunizations No information. Medications No information. Problems + + + + | date | description | facility | + + + + | 2024-12-17 [...]
[~2025-02-28 12:01] MED LIST changes: +OXYCODONE HCL10 MG PO
--- OUTSIDE RECORDS SUMMARY | 2025-02-28 12:07 | XMS ---
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 Pediatrics Current CARE SYSTEM \F\ <UNAVAIL> PHONE: [phone] DALY SILVA [facility] Current PHONE: Unknown Tamica Westbrook Maxillofacial Pathology/Disk Recoater Current PHONE: [phone] TIMMY APARICIO Internal Medicine: Infectious Disease Current [place] PHONE: [phone] Matty has no Care Guidelines for this patient. EDean VISIT COUNT (12 MO.) 15 [facility] TOTAL 16 NOTE: Visits indicate total known visits. ED/UCC VISIT TRACKING (12 MO.) 02/28/2025 12:01 [facility] [place] TYPE: Emergency COMPLAINT: - ABDOMINAL PAIN 01/16/2025 08:40 [facility] [place] TYPE: Emergency COMPLAINT: - LEG SWELLING DIAGNOSES: - Localized edema - Nicotine dependence, unspecified, uncomplicated - Other snf (current) drug therapy - Palpitations - Type 1 diabetes mellitus without complications 01/06/2025 02:04 [facility] [place] TYPE: Emergency COMPLAINT: - VOMITING DIAGNOSES: - Hypokalemia - skilled nursing (current) use of insulin - Nausea with vomiting, unspecified - Nicotine dependence, unspecified, uncomplicated - Other snf (current) drug therapy - Type 1 diabetes mellitus without complications - Unspecified abdominal pain - Unspecified cirrhosis of liver 12/16/2024 18:04 [facility] [place] TYPE: Emergency COMPLAINT: - VOMITING BLOOD DIAGNOSES: - Hematemesis - oysterman (current) use of insulin - Nicotine dependence, unspecified, uncomplicated - Other snf (current) drug therapy - Other specified complication of vascular prosthetic devices, implants and grafts, initial encounter - Type 1 diabetes mellitus without complications - Unspecified cirrhosis of liver 10/26/2024 13:17 [facility] [place] TYPE: Emergency COMPLAINT: - ABDOMINAL PAIN DIAGNOSES: - oysterman (current) use of insulin - Nicotine dependence, unspecified, uncomplicated - Other chronic pain - Other snf (current) drug therapy - [...] - Other snf (current) drug therapy - Presence of insulin pump (external) (internal) - Type 1 diabetes mellitus without complications 10/10/2024 08:32 [facility] [place] TYPE: Emergency COMPLAINT: - ABDOMINAL PAIN DIAGNOSES: - Gastrointestinal hemorrhage, unspecified - Hemorrhage of anus and rectum - skilled nursing (current) use of insulin - Nicotine dependence, unspecified, uncomplicated - Other terminologist (current) drug therapy - Type 1 diabetes mellitus without complications 09/22/2024 11:01 [facility] [place] TYPE: Emergency COMPLAINT: - ABDOMINAL PAIN DIAGNOSES: - skilled nursing (current) use of insulin - Nicotine dependence, unspecified, uncomplicated - Other terminologist (current) drug therapy - Spontaneous ecchymoses - Type 1 diabetes mellitus without complications - Unspecified abdominal pain 08/11/2024 09:13 [facility] [place] TYPE: Emergency COMPLAINT: - VOMITING DIAGNOSES: - Hematemesis - skilled nursing (current) use of insulin - Nicotine dependence, unspecified, uncomplicated - Other snf (current) drug therapy - Secondary esophageal varices with bleeding - Type 1 diabetes mellitus without complications - Unspecified cirrhosis of liver 08/01/2024 09:[address] [facility] [place] TYPE: Emergency COMPLAINT: - VOMITING BLOOD DIAGNOSES: - Hematemesis - skilled nursing (current) use of insulin - Nicotine dependence, unspecified, uncomplicated - Other snf (current) drug therapy - Type 1 diabetes mellitus without complications 07/21/2024 00:59 [facility] [place] TYPE: Emergency COMPLAINT: - RECTAL BLEEDING DIAGNOSES: - Hemorrhage of anus and rectum - oysterman (current) use of insulin - Lower abdominal pain, unspecified - Nicotine dependence, unspecified, uncomplicated - Other snf (current) drug therapy - Type 1 diabetes mellitus without complications 07/10/2024 18:08 [facility] [place] TYPE: Emergency COMPLAINT: - HEMATEMESIS - Vomiting_VOMITTING BLOOD DIAGNOSES: 0. Hematemesis 1. Gastrointestinal hemorrhage, unspecified 3. Nicotine dependence, cigarettes, uncomplicated 07/07/2024 15:49 [facility] TYPE: Emergency COMPLAINT: - VOMITING BLOOD, ABD PAIN, H/C SWEATS DIAGNOSES: - Hematemesis - oysterman (current) use of insulin - Nicotine dependence, unspecified, uncomplicated - Other snf (current) drug therapy - Type 1 diabetes mellitus without complications 06/23/2024 14:14 [facility] [place] TYPE: Emergency COMPLAINT: - ABDOMINAL PAIN DIAGNOSES: - Alcoholic liver disease, unspecified - Gastrointestinal hemorrhage, unspecified - Hematemesis - skilled nursing (current) use of insulin - Nicotine dependence, [...] coma - Cutaneous abscess of face - skilled nursing (current) use of insulin - Nicotine dependence, unspecified, uncomplicated - Other snf (current) drug therapy - Type 1 diabetes mellitus without complications INPATIENT VISIT TRACKING (12 MO.) 12/17/2024 20:44 [facility] TYPE: General Medicine COMPLAINT: - hematemesis DIAGNOSES: - Gastrointestinal hemorrhage, unspecified - Gastrointestinal hemorrhage, unspecified 12/15/2024 09:41 [facility] TYPE: Interventional DIAGNOSES: - Other cirrhosis of liver - Unspecified cirrhosis of liver - Hepatic cirrhosis 10/10/2024 23:21 [facility] TYPE: General Medicine COMPLAINT: - GIB DIAGNOSES: - Enterocolitis due to Clostridium difficile, not specified as recurrent - Gastrointestinal hemorrhage, unspecified 07/11/2024 07:24 [facility] TYPE: Internal Medicine DIAGNOSES: - Hematemesis - GI Bleed [email or web address]
[2025-02-28 12:33] LABS: BASOPHILS 0.9 % (0.2-1.2); EOSINOPHILS 3.1 % (0.8-7.0); LYMPHOCYTES 27.7 % (21.8-53.1); MCH 30.5 PG (25.7-32.2); MCHC 35.7 g/dL (32.3-36.5); MCV 85.5 fL (79.0-92.2); MONOCYTES 10.7 % (5.3-12.2); NEUTROPHILS 57.4 % (34.0-67.9); RBC 4.49 M/uL (4.63-6.08)
[2025-02-28 12:36] LABS: BLOOD/HGB, URINE NEGATIVE (Negative); KETONE, URINE NEGATIVE (Negative); LEUK ESTERASE, URINE NEGATIVE (negative); NITRITE, URINE NEGATIVE (negative)
[2025-02-28 12:44] LABS: INR 1.23 (0.80-1.30); PROTIME 14.7 Sec (11.2-14.2)
[2025-02-28] MEDS ORDERED: HYDROmorphone HCL 1 MG/ML SYR IV PRN (12:45)
[2025-02-28] MEDS ORDERED: SODIUM CHLORIDE 0.9% 1,000 ML IV PRN (12:45)
[2025-02-28 12:49] LABS: ALT (SGPT) 36.0 U/L (14-59); AST (SGOT) 30.0 U/L (15-37); GLOMERULAR FILTRATION RATE,EST 122.0 mL/min (>60); PROTEIN, TOTAL 7.0 g/dL (6.4-8.2); UREA NITROGEN 17.0 mg/dL (7-18)
[2025-02-28] MEDS ORDERED: METOCLOPRAMIDE H5 MG PO (13:03)
[2025-02-28] MEDS ORDERED: PROMETHAZINE HC25 MG PR (14:56)
[2025-02-28 15:09] VITALS: BP 122/65
== END 2025-02-28 15:08 | disposition home or self-care (01) ==
LOC: ED 12:01
PROVIDERS: Emergency Medicine
DX: R11.2 Nausea with vomiting, unspecified (principal); K74.60 Unspecified cirrhosis of liver; Z79.4 Long term (current) use of insulin; Z79.899 Other long term (current) 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; F17.200 Nicotine dependence, unspecified, uncomplicated; E10.9 Type 1 diabetes mellitus without complications
CPT/HCPCS: 36415; 74177; 80053; 81003; 82140; 83690; 85025; 85610; 96374; 96375; 99284-25; J1171; J1200; J1790; J2405; J7030; Q9967

== ENCOUNTER 2025-04-25 14:07 | Emergency (ER) | payer OTHER ==
[~2025-04-25] VITALS: Ht 182.9 cm; Wt 89.9 kg
[~2025-04-25 14:07] MED LIST changes: +METOCLOPRAMIDE H5 MG PO; +PROMETHAZINE HC25 MG PR
--- OUTSIDE RECORDS SUMMARY | 2025-04-25 14:14 | XMS ---
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 No recent Security Events currently on file CRITERIA MET - 6 ED Visits in 6 Months CARE PROVIDERS MEJIA RAMOS Internal Medicine 08/10/2023-Current PHONE: [phone] ZACKERY SORTO Nurse Practitioner: 10/14/2021-Current PHONE: [phone] -[facility]+ Dentist: [facility] PHONE: [phone] Constantine Jay- Dentist: [facility] PHONE: [phone] -[place]- Dentist: [facility] PHONE: [phone] SHAKILA [facility] Pediatrics Current CARE SYSTEM \F\ <UNAVAIL> PHONE: [phone] DALY SILVA [facility] Current PHONE: Unknown Tamica Westbrook Automatic Spooler Operator/Pin Cleaner Current PHONE: [phone] TIMMY APARICIO Internal Medicine: Infectious Disease Current [place] PHONE: [phone] Matty has no Care Guidelines for this patient. EAngellaDAngella VISIT COUNT (12 MO.) 16 [facility]A [place] TOTAL 17 NOTE: Visits indicate total known visits. ED/UCC VISIT TRACKING (12 MO.) 04/25/2025 14:07 [facility] [place] TYPE: Emergency COMPLAINT: - LEG SWELLING 02/28/2025 12:01 [facility] [place] TYPE: Emergency COMPLAINT: - ABDOMINAL PAIN DIAGNOSES: - detention (current) use of insulin - Nausea with vomiting, unspecified - Nicotine dependence, unspecified, uncomplicated - Other fdc (current) drug therapy - Type 1 diabetes mellitus without complications - Unspecified cirrhosis of liver 01/16/2025 08:40 [facility] [place] TYPE: Emergency COMPLAINT: - LEG SWELLING DIAGNOSES: - Localized edema - Nicotine dependence, unspecified, uncomplicated - Other terminal supervisor (current) drug therapy - Palpitations - Type 1 diabetes mellitus without complications 01/06/2025 02:04 [facility] [place] TYPE: Emergency COMPLAINT: - VOMITING DIAGNOSES: - Hypokalemia - detention (current) use of insulin - Nausea with vomiting, unspecified - Nicotine dependence, unspecified, uncomplicated - Other fdc (current) drug therapy - Type 1 diabetes mellitus without complications - Unspecified abdominal pain - Unspecified cirrhosis of liver 12/16/2024 18:04 [facility] [place] TYPE: Emergency COMPLAINT: - VOMITING BLOOD DIAGNOSES: - Hematemesis - detention (current) use of insulin - Nicotine dependence, unspecified, uncomplicated - Other terminal supervisor (current) drug therapy - Other specified complication of vascular prosthetic devices, implants and grafts, initial encounter - Type 1 diabetes mellitus without complications - Unspecified cirrhosis of liver 10/26/2024 13:17 [facility] [place] TYPE: Emergency COMPLAINT: - ABDOMINAL PAIN DIAGNOSES: - detention (current) use of insulin - Nicotine dependence, unspecified, uncomplicated - Other chronic pain - Other fdc (current) drug therapy - Type 1 diabetes [...] Nicotine dependence, unspecified, uncomplicated - Other terminal supervisor (current) drug therapy - Presence of insulin pump (external) (internal) - Type 1 diabetes mellitus without complications 10/10/2024 08:32 [facility] [place] TYPE: Emergency COMPLAINT: - ABDOMINAL PAIN DIAGNOSES: - Gastrointestinal hemorrhage, unspecified - Hemorrhage of anus and rectum - buttermaker (current) use of insulin - Nicotine dependence, unspecified, uncomplicated - Other fdc (current) drug therapy - Type 1 diabetes mellitus without complications 09/22/2024 11:01 [facility] [place] TYPE: Emergency COMPLAINT: - ABDOMINAL PAIN DIAGNOSES: - buttermaker (current) use of insulin - Nicotine dependence, unspecified, uncomplicated - Other terminal supervisor (current) drug therapy - Spontaneous ecchymoses - Type 1 diabetes mellitus without complications - Unspecified abdominal pain 08/11/2024 09:13 [facility] [place] TYPE: Emergency COMPLAINT: - VOMITING DIAGNOSES: - Hematemesis - buttermaker (current) use of insulin - Nicotine dependence, unspecified, uncomplicated - Other terminal supervisor (current) drug therapy - Secondary esophageal varices with bleeding - Type 1 diabetes mellitus without complications - Unspecified cirrhosis of liver 08/01/2024 09:42 [facility] TYPE: Emergency COMPLAINT: - VOMITING BLOOD DIAGNOSES: - Hematemesis - detention (current) use of insulin - Nicotine dependence, unspecified, uncomplicated - Other terminal supervisor (current) drug therapy - Type 1 diabetes mellitus without complications 07/21/2024 00:59 [facility] TYPE: Emergency COMPLAINT: - RECTAL BLEEDING DIAGNOSES: - Hemorrhage of anus and rectum - buttermaker (current) use of insulin - Lower abdominal pain, unspecified - Nicotine dependence, unspecified, uncomplicated - Other terminal supervisor (current) drug therapy - Type 1 diabetes mellitus without complications 07/10/2024 18:08 [facility] TYPE: Emergency COMPLAINT: - HEMATEMESIS - Vomiting_VOMITTING BLOOD DIAGNOSES: 0. Hematemesis 1. Gastrointestinal hemorrhage, unspecified 3. Nicotine dependence, cigarettes, uncomplicated 07/07/2024 15:49 [facility] [place] TYPE: Emergency COMPLAINT: - VOMITING BLOOD, ABD PAIN, H/C SWEATS DIAGNOSES: - Hematemesis - buttermaker (current) use of insulin - Nicotine dependence, unspecified, uncomplicated - Other terminal supervisor (current) drug therapy - Type 1 diabetes mellitus without complications 06/23/2024 14:14 [facility] [place] TYPE: Emergency COMPLAINT: - ABDOMINAL PAIN DIAGNOSES: - Alcoholic liver disease, unspecified - Gastrointestinal hemorrhage, unspecified - Hematemesis - buttermaker (current) use of insulin - Nicotine dependence, unspecified, uncomplicated - Other terminal supervisor (current) drug therapy - Secondary esophageal varices without bleeding - Type 1 diabetes mellitus without complications 06/21/2024 12:[address] [facility] [place] TYPE: Emergency COMPLAINT: - ABDOMINAL PAIN DIAGNOSES: - Alcoholic cirrhosis of liver without ascites - Gastrointestinal hemorrhage, unspecified - Lower abdominal pain, unspecified - Nicotine dependence, unspecified, uncomplicated - Other fdc (current) drug therapy - Secondary esophageal varices without bleeding - Thrombocytopenia, unspecified - Type 1 diabetes mellitus without complications 06/14/2024 07:[address] [facility] TYPE: Emergency COMPLAINT: - SKIN PROBLEM DIAGNOSES: - Chronic hepatic failure without coma - Cutaneous abscess of face - buttermaker (current) use of insulin - Nicotine dependence, unspecified, uncomplicated - Other fdc (current) drug therapy - Type 1 diabetes mellitus without complications INPATIENT VISIT TRACKING (12 MO.) 12/17/2024 20:44 [facility] TYPE: General Medicine COMPLAINT: - hematemesis DIAGNOSES: - Gastrointestinal hemorrhage, unspecified - Gastrointestinal hemorrhage, unspecified 12/15/2024 09:41 [facility] TYPE: Interventional DIAGNOSES: - Other cirrhosis of liver - Unspecified cirrhosis of liver - Hepatic cirrhosis 10/10/2024 23:21 [facility] TYPE: General Medicine COMPLAINT: - GIB DIAGNOSES: - Enterocolitis due to Clostridium difficile, not specified as recurrent - Gastrointestinal hemorrhage, unspecified 07/11/2024 07:24 [facility] TYPE: Internal Medicine DIAGNOSES: - Hematemesis - GI Bleed [email or web address]
[2025-04-25 15:24] LABS: BASOPHILS 0.8 % (0.2-1.2); EOSINOPHILS 5.0 % (0.8-7.0); LYMPHOCYTES 33.1 % (21.8-53.1); MCH 31.3 PG (25.7-32.2); MCHC 35.2 g/dL (32.3-36.5); MCV 88.8 fL (79.0-92.2); MONOCYTES 9.9 % (5.3-12.2); NEUTROPHILS 51.2 % (34.0-67.9); RBC 3.74 M/uL (4.63-6.08)
[2025-04-25 15:39] LABS: ALT (SGPT) 24.0 U/L (14-59); AST (SGOT) 26.0 U/L (15-37); GLOMERULAR FILTRATION RATE,EST 114.0 mL/min (>60); PROTEIN, TOTAL 5.5 g/dL (6.4-8.2); UREA NITROGEN 6.0 mg/dL (7-18)
[2025-04-25] MEDS ORDERED: CEPHALEXIN MONOHYDRATE 500 MG CAP PO ONE (16:00)
[2025-04-25] MEDS ORDERED: POTASSIUM CHLO10 MEQ PO (16:02)
[2025-04-25] MEDS ORDERED: CEPHALEXIN500 M1 PO (16:02)
[2025-04-25 16:14] VITALS: BP 124/72
== END 2025-04-25 16:13 | disposition home or self-care (01) ==
LOC: ED 14:07
PROVIDERS: Emergency Medicine
DX: L03.115 Cellulitis of right lower limb (principal); L03.116 Cellulitis of left lower limb; R60.0 Localized edema; E10.9 Type 1 diabetes mellitus without complications; F17.200 Nicotine dependence, unspecified, uncomplicated
CPT/HCPCS: 36415; 80053; 85025; 85060; 99283; A9270